=== PATIENT | male | born 1980 | race Caucasian/White ===

== ENCOUNTER 2019-07-24 13:39 | Outpatient (REF) | payer MEDICAID, SELFPAY ==
[2019-07-25 17:14] LABS: COVID-19 RT-PCR Result NEGATIVE (Negative)
== END 2019-07-24 13:59 ==
LOC: NCHCN 13:39
PROVIDERS: PCP Specialist/Technologist Athletic Trainer; Visit Provider Nurse Practitioner Family
DX: J06.9 Acute upper respiratory infection, unspecified (principal)
CPT/HCPCS: U0003

== ENCOUNTER 2019-08-12 16:10 | Outpatient (REF) | payer MEDICAID, SELFPAY ==
[2019-08-12 17:07] LABS: Abs Immature Grans 0.03 k/cumm (0.0-0.09); Absolute Basophil Count 0.03 k/cumm (0.0-0.2); Absolute Lymphocyte Count 1.39 k/cumm (1.2-3.4); Absolute Monocyte Count 0.62 k/cumm (0.11-0.7); Absolute Neutrophil Count 5.86 k/cumm (1.2-6.7); Basophils % 0.4; Eosinophils % 4.8; HCT 47.6 % (40.0-50.0); HGB 16.4 g/dL (13.5-17.5); Immature Grans % 0.4 %; Lymphocytes % 16.7; Mean Corp. HGB Concentration 34.5 g/dL (32.0-36.0); Mean Corpuscular Hemoglobin 29.9 pg (27.0-33.0); Mean Corpuscular Volume 86.9 fL (80-95); Monocytes % 7.4; Neutrophils % 70.3; Platelet Count 219 x1000/uL (130-400); RBC 5.48 m/cumm (4.50-6.00); RBC Distribution Width 14.8 % (11.8-14.1); White Blood Cell Count 8.33 k/cumm (4.4-10.8)
[2019-08-12 17:22] LABS: ALT 47 U/L (16-63); AST 37 U/L (15-37); Albumin 3.6 g/dL (3.4-5.0); Alkaline Phosphatase 80 U/L (46-116); Anion Gap 11.1 mmol/L (3-11); BUN 19 mg/dL (7-18); Bilirubin, Total 0.4 mg/dL (0.2-1.0); CO2 28.9 mmol/L (21.0-32.0); CREATININE 0.98 mg/dL (0.70-1.30); Calcium 8.5 mg/dL (8.5-10.1); Calculated LDL 108 mg/dL (<100); Chloride 103 mmol/L (98-107); Cholesterol 189 mg/dL (<200); Glucose 102 mg/dL (74-106); HDL Cholesterol 44 mg/dL (40-60); Potassium 3.3 mmol/L (3.5-5.1); Sodium 143 mmol/L (136-145); Total Protein 7.3 g/dL (6.4-8.2); Triglyceride 189 mg/dL (<150)
== END 2019-08-12 16:30 ==
LOC: NCHCN 16:10
PROVIDERS: PCP Specialist/Technologist Athletic Trainer; Visit Provider Physician Assistant
DX: I10 Essential (primary) hypertension (principal)
CPT/HCPCS: 80053; 80061; 85025

== ENCOUNTER 2019-09-12 10:35 | Emergency (ER) | payer MEDICAID, SELFPAY ==
[2019-09-12 10:51] VITALS: BP 124/96; PULSE 98; RESP 24; TEMP 36.5; O2SAT 97
[2019-09-12 11:13] LABS: Bilirubin Negative (Negative); Blood Negative (Negative); Clarity Clear (Clear); Glucose Negative (Negative); Ketones Negative (Negative); Leukocyte Esterase Negative (Negative); Nitrite Negative (Negative); Urobilinogen 0.2 EU/dL (Up TO 0.2); pH 5.5 (5-8)
--- NOTE | 2019-09-12 11:15 | RT.EKG_ITS ---
APPROVED REPORT Exam: Resting ECG Patient Location: E HR:91 bpm ECG Measurements Heart Rate 91 AXIS WV 147 P 46 QRSd 83 QRS 20 QT 344 T 9 QTc 425 <Conclusion> Sinus rhythm...normal P axis, V-rate 60- 99 ST elev, probable normal early repol pattern...ST elevation, age<55. No old EKG to compare. I have reviewed and interpreted ECG and agree with software generated interpretation.
[2019-09-12 11:19] LABS: Abs Immature Grans 0.03 k/cumm (0.0-0.09); Absolute Basophil Count 0.05 k/cumm (0.0-0.2); Absolute Eosinophil Count 0.37 k/cumm (0.0-0.7); Absolute Lymphocyte Count 1.99 k/cumm (1.2-3.4); Absolute Monocyte Count 0.66 k/cumm (0.11-0.7); Basophils % 0.6; Eosinophils % 4.7; HCT 46.8 % (40.0-50.0); Immature Grans % 0.4 %; Lymphocytes % 25.2; Mean Corp. HGB Concentration 34.2 g/dL (32.0-36.0); Mean Corpuscular Hemoglobin 29.8 pg (27.0-33.0); Mean Corpuscular Volume 87.2 fL (80-95); Mean Platelet Volume 10.8 fL (8.0-11.0); Monocytes % 8.4; Neutrophils % 60.7; Platelet Count 212 x1000/uL (130-400); RBC 5.37 m/cumm (4.50-6.00); RBC Distribution Width 14.1 % (11.8-14.1)
--- NOTE | 2019-09-12 11:20 | W.ED.GENAD ---
Discharge Plan Disposition Patient Disposition: HOME Condition: Stable Discharge Details Chief Complaint: Abd Prob Clinical Impression: Flank pain Primary Care Provider: Clinton Cruz ED Provider: Robert Diane Home Meds and New Rx's Prescriptions: New naproxen [Naprosyn] 500 mg tablet 500 mg PO BID PRNQty: 20 RF: 0 Continued High Blood Pressure Med RF: 0 Stomach Medicine RF: 0 Discontinued ibuprofen 800 MG tablet 800 mg PO PRN PRNRF: 0 Discharge Instructions Instructions: Flank Pain (ED) Additional Instructions: At this time your work-up in the ER including blood work, urinalysis, troponin, EKG, CT of your abdomen and pelvis do not reveal any obvious emergent process. You responded nicely to the medication Toradol. I have provided you a prescription of Naprosyn, take as directed. Please watch for new or worsening symptoms and return to the ER for any concerns. Otherwise I would like you to reach out to your primary care provider in the next 24 hours for prompt outpatient reevaluation Medical Decision Making 39-year-old gentleman with history of hypertension, GERD, asthma, morbid obesity, presents with 2-week history of constant left flank discomfort worse with movement or engagement of his core. Clinically he does have reproducible discomfort and this very well be musculoskeletal however I do believe obtaining routine laboratory values including lipase and urinalysis is certainly reasonable. Given it is upper left flank, his recent incarceration, his morbid obesity, I will obtain an EKG, single troponin and d-dimer although low suspicion for PE or ACS. Laboratory values are unremarkable. EKG was obtained and reviewed with Dr. Guevara, sinus rhythm, ventricular 91, probable normal early repolarization pattern, no STEMI. Normal d-dimer, no indication for chest CTA. Upon reevaluation patient reports no improvement of his pain. Given his ongoing pain for 2 weeks we discussed our options and he is open to a abdomen and pelvis pelvis CT. In the meantime he will receive 30 IV Toradol. Upon reevaluation patient reports that his pain is now a 2 out of [address] abdomen and pelvis with contrast read by radiology as negative. Upon discussing his work-up and disposition he reports now that he was seen by his primary care provider for the same pain roughly 1 week ago, given a muscle relaxer for likely pulled muscle, he is now out of that medication. He is requesting a refill or something stronger. This heightens my suspicion of this is truly musculoskeletal in nature. He appears well and in no acute distress. I see no indication for narcotic medication or muscle relaxers. Will provide anti-inflammatory prescription, recommend prompt outpatient reevaluation, and encourage returning to the ER for new or worsening symptoms. Patient is comfortable this plan and has no additional questions or concerns Medical Records Medical records reviewed: Yes I reviewed the patient's medical records. Lab Data Lab results reviewed: Yes I reviewed the patient's lab results. Lab results narrative: Laboratory Tests Range/Units 09/12/19 09/12/19 09/12/19 11:07 11:13 11:13 WBC (4.4-10.8) k/cumm 7.90 RBC (4.50-6.00) m/cumm 5.37 Hgb (13.5-17.5) g/dL 16.0 Hct (40.0-50.0) % 46.8 MCV (80-95) fL 87.2 MCH (27.0-33.0) pg 29.8 MCHC (32.0-36.0) g/dL 34.2 RDW (11.8-14.1) % 14.1 Plt Count (130-400) x1000/uL 212 MPV (8.0-11.0) fL 10.8 Immature Gran % % 0.4 Neutrophils % 60.7 Lymphocytes % 25.2 Monocytes % 8.4 Eosinophils % 4.7 Basophils % 0.6 Absolute Neutrophils (1.2-6.7) k/cumm 4.80 Absolute Lymphocytes (1.2-3.4) k/cumm 1.99 Absolute Monocytes (0.11-0.7) k/cumm 0.66 Absolute Eosinophils (0.0-0.7) k/cumm 0.37 Absolute Basophils (0.0-0.2) k/cumm 0.05 D-Dimer (<500) ng/mlFEU Sodium (136-145) mmol/L 138 Potassium (3.5-5.1) mmol/L 4.3 Chloride (98-107) mmol/L 103 Carbon Dioxide (21.0-32.0) mmol/L 25.5 Anion Gap (3-11) mmol/L 9.5 BUN (7-18) mg/dL 18 Creatinine (0.70-1.30) mg/dL 0.96 Estimated GFR/1.73 m2 (mL/min/1.73m2) >= 60.00 Glucose (74-106) mg/dL 95 Calcium (8.5-10.1) mg/dL 9.0 Total Bilirubin (0.2-1.0) mg/dL 0.3 AST (15-37) U/L 20 ALT (16-63) U/L 30 Alkaline Phosphatase (46-116) U/L 85 Troponin I (<0.06) ng/mL Total Protein (6.4-8.2) g/dL 7.7 Albumin (3.4-5.0) g/dL 3.5 Lipase (73-393) U/L 149 Urine Color (Yellow) Yellow Urine Clarity (Clear) Clear Urine pH (5-8) 5.5 Ur Specific [place] (1.005-1.025) 1.020 Urine Protein (Negative) mg/dL Negative Urine Ketones (Negative) mg/dL Negative Urine Blood (Negative) Negative Urine Nitrite (Negative) Negative Urine Bilirubin (Negative) Negative Urine Urobilinogen (Up TO 0.2) EU/dL 0.2 Ur Leukocyte Esterase (Negative) Negative Urine Glucose (Negative) mg/dL Negative Range/Units 09/12/19 09/12/19 11:13 11:21 WBC (4.4-10.8) k/cumm RBC (4.50-6.00) m/cumm Hgb (13.5-17.5) g/dL Hct (40.0-50.0) % MCV (80-95) fL MCH (27.0-33.0) pg MCHC (32.0-36.0) g/dL RDW (11.8-14.1) % Plt Count (130-400) x1000/uL MPV (8.0-11.0) fL Immature Gran % % Neutrophils % Lymphocytes % Monocytes % Eosinophils % Basophils % Absolute Neutrophils (1.2-6.7) k/cumm Absolute Lymphocytes (1.2-3.4) k/cumm Absolute Monocytes (0.11-0.7) k/cumm Absolute Eosinophils (0.0-0.7) k/cumm Absolute Basophils (0.0-0.2) k/cumm D-Dimer (<500) ng/mlFEU 386 Sodium (136-145) mmol/L Potassium (3.5-5.1) mmol/L Chloride (98-107) mmol/L Carbon Dioxide (21.0-32.0) mmol/L Anion Gap (3-11) mmol/L BUN (7-18) mg/dL Creatinine (0.70-1.30) mg/dL Estimated GFR/1.73 m2 (mL/min/1.73m2) Glucose (74-106) mg/dL Calcium (8.5-10.1) mg/dL Total Bilirubin (0.2-1.0) mg/dL AST (15-37) U/L ALT (16-63) U/L Alkaline Phosphatase (46-116) U/L Troponin I (<0.06) ng/mL < 0.05 Total Protein (6.4-8.2) g/dL Albumin (3.4-5.0) g/dL Lipase (73-393) U/L Urine Color (Yellow) Urine Clarity (Clear) Urine pH (5-8) Ur Specific [place] (1.005-1.025) Urine Protein (Negative) mg/dL Urine Ketones (Negative) mg/dL Urine Blood (Negative) Urine Nitrite (Negative) Urine Bilirubin (Negative) Urine Urobilinogen (Up TO 0.2) EU/dL Ur Leukocyte Esterase (Negative) Urine Glucose (Negative) mg/dL ECG Data Attestation: I personally reviewed and interpreted this ECG (s) as follows: Interpretation: As above, please see official interpretation by Dr. Ismael PEMBERTON General Mode of arrival: ambulatory. Date/Time Provider Initiated Documentation: 09/12/19 10:58. Limitations to Documentation: no limitations. Information obtained by: patient. HPI Narrative: This is a 39-year-old gentleman with history of asthma, GERD, hypertension, morbid obesity, presenting with left-sided chest wall-flank pain that has been constant for the past 2 weeks. He reports that movement, engaging his core, coughing, taking a deep breath increases his discomfort. He denies recent illness or trauma. He denies fever, neck pain, anterior chest pain, shortness of breath, abdominal pain, nausea, vomiting, diarrhea, constipation, dysuria. He denies rash. He does smoke cigarettes but denies any alcohol or drug use. Patient denies history of kidney stones, abdominal surgeries, chest pain. Denies change of appetite. Related Data Home Medications Medication Instructions Recorded Confirmed High Blood Pressure Med 02/11/13 10/25/14 Stomach Medicine 10/25/14 10/25/14 naproxen [Naprosyn] 500 mg PO BID PRN #20 tab 09/12/19 Previous Rx's Medication Instructions Recorded naproxen [Naprosyn] 500 mg PO BID PRN #20 tab 09/12/19 Allergies Allergy/AdvReac Type Severity Reaction Status Date / Time No Known Allergies Allergy Unverified 09/12/19 11:03 General Stated Complaint: Abd Prob KARL: 3 Review of Systems Constitutional Constitutional: Denies fatigue, Denies fever(s), Denies headache(s), Denies increased appetite, Denies poor appetite and Denies weakness Eyes Eyes: Denies change in vision ENT Ears, Nose, Mouth, and Throat: Denies headache(s) Cardiovascular Cardiovascular: Reports chest pain (Left chest wall) and Denies dyspnea Respiratory Respiratory: Reports cough (Chronic smoking cough) and Denies dyspnea Gastrointestinal Gastrointestinal: Reports abdominal pain (Left flank pain), Denies nausea and Denies vomiting Genitourinary Genitourinary: Denies hematuria, Denies dysuria and Denies testicular pain Musculoskeletal Musculoskeletal: Reports back pain (Chronic, 3 bulging disc), Denies numbness and Denies tingling Integumentary/Breasts Skin/Breast: Denies rash Neurologic Neurologic: Denies headache(s), Denies numbness, Denies tingling and Denies weakness Endocrine Endocrine: Denies fatigue [facility] Medical History Asthma (Chronic) GERD (gastroesophageal reflux disease) (Chronic) Hypertension (Chronic) Social History Smoking/Tobacco Use Status: Current every day Tobacco Type: cigarettes Tobacco: How many years used: 25 Alcohol Intake: former Drug use: Socially Substance use type: marijuana Do you feel safe at home: Yes Additional Social history: lives in [facility] house with four other residents Exam Const General: cooperative, healthy appearing, comfortable and no acute distress Orientation: alert, awake and oriented x3 HENMT Head: normal to inspection, normocephalic and atraumatic Face and sinus: normal facial exam Mouth: moist mucous membranes Throat: posterior oropharynx normal Eyes Conjunctivae: conjunctivae normal Sclera: sclerae normal Neck Neck: normal visual inspection, full ROM, trachea midline, supple and nontender Chest Chest: normal inspection of the chest and normal palpation of entire chest wall Resp Effort & Inspection: normal respiratory effort and able to speak in complete sentences Auscultation: clear to auscultation bilaterally Cardio Rate: regular rate Rhythm: regular rhythm GI Inspection: normal to inspection and obesity Palpation: soft, not firm, no guarding, not rigid and tender (Left upper flank) Auscultation: normal bowel sounds Back/Spine/Pelvis Back: no CVA tenderness and No back tenderness Skin General skin exam: no rashes or lesions noted Neuro General: patient alert, patient awake, patient oriented x3, moves all extremities and no focal motor deficits Cognition: normal cognition Speech: speech normal Gait: normal gait Motor: muscle tone normal throughout and strength 5/5 throughout Sensory Exam: no sensory deficits noted Extrem General: normal to inspection, full ROM, capillary refill normal, no pedal edema and no calf tenderness Psych Appearance: grossly normal Mental Status: mental status grossly normal Course Vital Signs Vital signs: Vital Signs Temperature 36.5 C 09/12/19 10:51 Pulse 98 H 09/12/19 10:51 Respiratory Rate 24 09/12/19 10:51 Blood Pressure 124/96 H 09/12/19 10:51 Pulse Oximetry 97 09/12/19 10:51 Temperature 36.5 C 09/12/19 10:51 Temperature Source Temporal Artery Scan 09/12/19 10:51 Pulse 98 H 09/12/19 10:51 Respiratory Rate 24 09/12/19 10:51 Respiratory Effort 09/12/19 10:55 Blood Pressure 124/96 H 09/12/19 10:51 Pulse Oximetry 97 09/12/19 10:51 Oxygen Delivery Method Room Air 09/12/19 10:51 Oxygen Flow Rate 0 09/12/19 10:51 Pain Level 9 09/12/19 10:51
[2019-09-12 11:40] LABS: ALT 30 U/L (16-63); AST 20 U/L (15-37); Albumin 3.5 g/dL (3.4-5.0); Alkaline Phosphatase 85 U/L (46-116); Anion Gap 9.5 mmol/L (3-11); BUN 18 mg/dL (7-18); Bilirubin, Total 0.3 mg/dL (0.2-1.0); CO2 25.5 mmol/L (21.0-32.0); CREATININE 0.96 mg/dL (0.70-1.30); Chloride 103 mmol/L (98-107); Glucose 95 mg/dL (74-106); Lipase 149 U/L (73-393); Potassium 4.3 mmol/L (3.5-5.1); Sodium 138 mmol/L (136-145); Total Protein 7.7 g/dL (6.4-8.2)
[2019-09-12 11:51] VITALS: BP 131/80; PULSE 95; RESP 20; O2SAT 97
--- NOTE | 2019-09-12 12:00 | DI.CT_ITS ---
EXAM: CT ABDOMEN PELVIS W CLINICAL HISTORY: Left flank pain, sudden onset, 10 days. TECHNIQUE: Imaging Protocol: Axial computed tomography images with coronal and sagittal reformatted images were created and reviewed CONTRAST MATERIAL: 100 cc Omnipaque 350 IV. No oral contrast. COMPARISON: No exams were available for comparison FINDINGS: The lung bases are clear. The liver shows fatty infiltration. The spleen is normal in size. The ga llbladder, pancreas and adrenals are unremarkable. No renal calculi or hydronephrosis is seen. Blad luis and prostate are unremarkable. The appendix appears normal. There is a normal quantity of stool . There is no gastric, small bowel or colonic dilatation or wall thickening. There is no free air o r free fluid. The the the aorta is normal in diameter. There are mild degenerative changes in the l ower thoracic and lumbar spine. There is no gross evidence of a disc herniation. There is a fatty c ontaining left inguinal hernia. Impression: Unremarkable CT scan of the abdomen and pelvis. RADIATION DOSE DELIVERED: Total DLP DATA REPOSITORY: All CT scans at this facility are submitted to the National Radiology Data Registry (NRDR) Dose Index Registry (DIR) with the [employer] (ACR). RADIATION OPTIMIZATION: All CT scans at this facility use at least one of these dose optimization te chniques: automated exposure control; mA and/or kV adjustment per patient size (includes targeted exa ms where dose is matched to clinical indication); or iterative reconstruction.
--- NOTE | 2019-09-12 12:03 | NUR.NOTE ---
placed on cardiac nurse specialist
[2019-09-12 12:04] LABS: Troponin I < 0.05 ng/mL (<0.06)
[2019-09-12 12:07] LABS: D-Dimer 386 ng/mlFEU (<500)
[2019-09-12] MEDS: Ketorolac 30 MG/ML VIAL IVP (12:26)
[2019-09-12 13:21] VITALS: BP 120/61; PULSE 89; RESP 20; O2SAT 95
--- NOTE | 2019-09-12 13:22 | NUR.NOTE ---
resting quietly, respirations even and unlabored. awakened for reassess, denies pain at this time. asked for cell phone
[2019-09-12] MEDS: Omnipaque 350 MG/ML 100 ML BTL IJ (14:19)
== END 2019-09-12 13:40 | disposition home or self-care (01) ==
PROVIDERS: Emergency Provider Physician Assistant; PCP Physician Assistant
DX: R10.12 Left upper quadrant pain (principal); I10 Essential (primary) hypertension
CPT/HCPCS: 36415; 80053; 83690; 93005; 96374; 99285; 74177; 81003; 84484; 85025; 85379; 93010; J1885; J3490

== ENCOUNTER 2019-10-25 16:19 | Outpatient (REF) | payer MEDICAID, SELFPAY ==
[2019-10-25 22:30] LABS: Anion Gap 9.1 mmol/L (3-11); BUN 17 mg/dL (7-18); CO2 26.9 mmol/L (21.0-32.0); CREATININE 0.96 mg/dL (0.70-1.30); Chloride 107 mmol/L (98-107); Glucose 102 mg/dL (74-106); Potassium 4.5 mmol/L (3.5-5.1); Sodium 143 mmol/L (136-145)
== END 2019-10-25 16:39 ==
LOC: NCHCN 16:19
PROVIDERS: PCP Physician Assistant; Visit Provider Physician Assistant
DX: I10 Essential (primary) hypertension (principal)
CPT/HCPCS: 80048

== ENCOUNTER 2020-04-23 16:27 | Emergency (ER) | payer MEDICAID, SELFPAY ==
[2020-04-23 16:33] VITALS: BP 167/96; PULSE 96; TEMP 36.6; O2SAT 100
[2020-04-23] MEDS: Ketorolac 60 MG/2 ML VIAL IM (17:12)
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
== END 2020-04-23 17:55 | disposition home or self-care (01) ==
PROVIDERS: Emergency Provider Physician Assistant; PCP Physician Assistant
DX: M25.512 Pain in left shoulder (principal); G89.29 Other chronic pain; I10 Essential (primary) hypertension
CPT/HCPCS: 96372; 99284; J1885

== ENCOUNTER 2020-08-21 12:58 | Outpatient (REF) | payer MEDICAID, SELFPAY ==
[2020-08-20 21:20] LABS: Abs Immature Grans 0.02 10^3/uL (0.0-0.06); Absolute Basophil Count 0.06 10^3/uL (0.0-0.2); Absolute Eosinophil Count 0.37 10^3/uL (0.0-0.7); Absolute Lymphocyte Count 1.98 10^3/uL (1.2-3.4); Absolute Monocyte Count 0.77 10^3/uL (0.1-0.8); Absolute Neutrophil Count 5.54 10^3/uL (1.2-6.7); Basophils % 0.7; Eosinophils % 4.2; HCT 54.1 % (40.0-50.0); HGB 18.6 g/dL (13.5-17.5); Immature Grans % 0.2; Lymphocytes % 22.7; MCH 30.6 pg (27.0-33.0); MCHC 34.4 % (32.0-36.0); MPV 12.5 fL (8.0-11.0); Monocytes % 8.8; Neutrophils % 63.4; Nucleated RBC 0 %; Platelet Count 224 10^3/uL (130-400); RBC 6.08 10^6/uL (4.36-5.78); RDW 12.9 % (11.8-14.1); RDW-SD 41.8 fL; WBC 8.74 10^3/uL (4.4-10.8)
[2020-08-20 21:52] LABS: Diff Comment Diff Reviewed; RBC Morphology Normal
[2020-08-20 21:56] LABS: ALT 31 U/L (16-63); AST 23 U/L (15-37); Albumin 4.1 g/dL (3.4-5.0); Alkaline Phosphatase 75 U/L (46-116); Anion Gap 12.5 mmol/L (3-11); BUN 19 mg/dL (7-18); Bilirubin, Total 0.4 mg/dL (0.2-1.0); CO2 22.5 mmol/L (21.0-32.0); Calcium 9.3 mg/dL (8.5-10.1); Chloride 103 mmol/L (98-107); Glucose 120 mg/dL (74-106); Potassium 4.7 mmol/L (3.5-5.1); Sodium 138 mmol/L (136-145)
[2020-08-22 13:32] LABS: COVID-19 RT-PCR UVMMC Result Negative (Negative)
== END 2020-08-21 12:59 | disposition home or self-care (01) ==
LOC: LBN 12:58
PROVIDERS: PCP Physician Assistant; Visit Provider Physician Assistant Medical
DX: R11.2 Nausea with vomiting, unspecified (principal); Z20.822 Contact with and (suspected) exposure to COVID-19
CPT/HCPCS: 80053; U0003; 85025

== ENCOUNTER 2020-09-14 18:49 | Outpatient (REF) | payer MEDICAID, SELFPAY ==
[2020-09-15 14:15] LABS: COVID-19 RT-PCR UVMMC Result Negative (Negative)
== END 2020-09-14 18:50 | disposition home or self-care (01) ==
LOC: LBN 18:49
PROVIDERS: PCP Physician Assistant; Visit Provider Nurse Practitioner Family
DX: Z20.822 Contact with and (suspected) exposure to COVID-19 (principal)
CPT/HCPCS: U0003

== ENCOUNTER 2020-09-28 15:47 | Outpatient (REF) | payer MEDICAID, SELFPAY ==
[2020-09-28 20:54] LABS: Abs Immature Grans 0.02 10^3/uL (0.0-0.06); Absolute Basophil Count 0.05 10^3/uL (0.0-0.2); Absolute Eosinophil Count 0.28 10^3/uL (0.0-0.7); Absolute Lymphocyte Count 1.75 10^3/uL (1.2-3.4); Absolute Monocyte Count 0.74 10^3/uL (0.1-0.8); Absolute Neutrophil Count 4.22 10^3/uL (1.2-6.7); Basophils % 0.7; HCT 50.7 % (40.0-50.0); Immature Grans % 0.3; Lymphocytes % 24.8; MCH 30.1 pg (27.0-33.0); MCHC 33.5 % (32.0-36.0); MCV 89.7 fL (80-95); MPV 12.1 fL (8.0-11.0); Monocytes % 10.5; Neutrophils % 59.7; Nucleated RBC 0 %; Platelet Count 195 10^3/uL (130-400); RBC 5.65 10^6/uL (4.36-5.78); RDW 12.9 % (11.8-14.1); RDW-SD 42.5 fL; WBC 7.06 10^3/uL (4.4-10.8)
[2020-09-28 21:02] LABS: Anion Gap 10.6 mmol/L (3-11); BUN 14 mg/dL (7-18); CO2 26.4 mmol/L (21.0-32.0); Calcium 9.5 mg/dL (8.5-10.1); Chloride 104 mmol/L (98-107); Glucose 94 mg/dL (74-106); Potassium 4.5 mmol/L (3.5-5.1); Sodium 141 mmol/L (136-145)
[2020-09-28 21:12] LABS: Uric Acid 9.1 mg/dL (3.5-7.2)
== END 2020-09-28 15:48 | disposition home or self-care (01) ==
LOC: LBN 15:47
PROVIDERS: PCP Physician Assistant; Visit Provider Nurse Practitioner Family
DX: M79.672 Pain in left foot (principal)
CPT/HCPCS: 80048; 84550; 85025

== ENCOUNTER 2020-09-29 18:13 | Emergency (ER) | payer MEDICAID, SELFPAY ==
--- NOTE | 2020-09-29 18:15 | DI.RAD_ITS ---
Exam(s) XR ANKLE LT COMPLETE EXAM: XR ANKLE LT COMPLETE CLINICAL HISTORY: Pain, Recently diagnosed with Gout. TECHNIQUE: 2D digital imaging was performed. COMPARISON: No exams were available for comparison FINDINGS: Mild soft tissue swelling. No evidence of fracture nor widening of the mortise. Talar dome appears unremarkable. Small inferior calcaneal spur noted. No osseous tarsal coalition IMPRESSION: No fracture evident. DATA REPOSITORY: RADIATION DOSE DELIVERED:
[2020-09-29 18:23] VITALS: BP 158/100; PULSE 102; RESP 20; TEMP 36.6; O2SAT 95
--- NOTE | 2020-09-29 18:28 | ED.GENADUL_ITS ---
Discharge Plan Disposition Patient Disposition: HOME Condition: Stable Discharge Details Clinical Impression: Gout of left ankle Primary Care Provider: Clinton Cruz ED Provider: Carlie Jones Home Meds and New Rx's Prescriptions: No Action gabapentin 600 mg tablet 600 mg PO TID 30 Days Qty: 90 RF: 11 prednisone 10 mg tablet 10 mg PO DAILY RF: 0 indomethacin 50 mg capsule 50 mg PO DAILY RF: 0 zolpidem 5 mg tablet 5 mg PO HS RF: 0 diclofenac sodium 1 % gel topical BID RF: 0 lisinopril 20 mg Tablet 20 mg PO DAILY RF: 0 amlodipine 10 mg Tablet 10 mg PO DAILY RF: 0 pantoprazole 40 mg Tablet,Delayed Release (Dr/Ec) 40 mg PO DAILY RF: 0 albuterol sulfate [ProAir HFA] 90 mcg/actuation Hfa Aerosol Inhaler 2 puff INHALATION Q6H PRNRF: 0 spironolactone 50 mg Tablet 50 mg PO DAILY RF: 0 Discharge Instructions Instructions: Low Purine Diet (ED), Gout (ED) Additional Instructions: Continue taking the previously prescribed medications including the indomethacin and prednisone. Rest, ice, elevation. Stay off of foot as much as possible over the next 2 to 3 days. Use crutches and walking boot as instructed for comfort. Follow up with primary care provider in 3-5 days. Return to ED sooner if any worsening or concerns. Increase oral fluids. Referrals: Clinton Cruz [Primary Care Provider] - Medical Decision Making 40-year-old male presents the ER chief complaint of left ankle pain. Patient was seen in urgent care yesterday and was diagnosed with gout. Patient states he has had gouty arthritis before. He was prescribed indomethacin, prednisone PO, and diclofenac topically. 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 He states the pain worsened today. He denies any recent injuries. He last took medications at 2 PM. He denies any alcohol. At this time ankle x-ray ordered, 60 mg Toradol IM and ice pack. Imaging protocol: XR Left ankle. Views: 3 or more views. COMPARISON: No relevant prior studies available. FINDINGS: Bones/joints: No fracture. No malalignment. Small enthesophyte at the Achilles insertion. No evidence of joint erosion. Soft tissues: Normal. IMPRESSION: No acute osseous abnormality Thank you for allowing us to participate in the care of your patient. Dictated and Authenticated by: Asher Covarrubias MD 1914: Patient re-evaluation, Reports mild improvement in pain. Has taken Prednisone today but not Indomethacin. Will give crutches and trial patient with a walking boot. I did encourage him to continue the regimen that was already prescribed as this is an appropriate medication regimen to discuss strict return instructions and red flags, verbalized understanding. This text was generated using Cuppleation system, please disregard any oddities of phrase or misspellings. HPI General Mode of arrival: wheelchair . Date/Time Provider Initiated Documentation: 09/29/20 18:19 . Limitations to Documentation: no limitations . Information obtained by: patient and RN notes reviewed . HPI Narrative: 40-year-old male presents the ER chief complaint of left ankle pain. Patient was seen in urgent care yesterday and was diagnosed with gout. Patient states he has had gouty arthritis before. He was prescribed indomethacin, prednisone PO, and diclofenac topically. 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 He states the pain worsened today. He denies any recent injuries. He last took medications at 2 PM. He denies any alcohol. Related Data Home Medications Medication Instructions Recorded Confirmed albuterol sulfate [ProAir HFA] 2 puff INHALATION Q6H PRN 04/23/20 09/29/20 amlodipine 10 mg PO DAILY 04/23/20 09/29/20 lisinopril 20 mg PO DAILY 04/23/20 09/29/20 pantoprazole 40 mg PO DAILY 04/23/20 09/29/20 spironolactone 50 mg PO DAILY 04/23/20 09/29/20 gabapentin 600 mg tablet 600 mg PO TID 30 Days #90 tab 07/02/20 09/29/20 diclofenac sodium TOPICAL BID 09/29/20 indomethacin 50 mg PO DAILY 09/29/20 09/29/20 prednisone 10 mg PO DAILY 09/29/20 09/29/20 zolpidem 5 mg PO HS 09/29/20 09/29/20 Previous Rx's Medication Instructions Recorded gabapentin 600 mg tablet 600 mg PO TID 30 Days #90 tab 07/02/20 Allergies Allergy/AdvReac Type Severity Reaction Status Date / Time No Known Allergies Allergy Unverified 09/29/20 18:32 General Stated Complaint: Orthopedic KARL: 4 Review of Systems All systems reviewed & are unremarkable except as noted in HPI and below Musculoskeletal Musculoskeletal: Reports as per HPI, Reports arthralgias (Left ankle) and Reports joint swelling PFSH Medical History Asthma Back pain Depression GERD (gastroesophageal reflux disease) Hypertension Murmur Sleep apnea Tobacco use Social History Smoking/Tobacco Use Status: Current every day Tobacco Type: cigarettes Tobacco: How many years used: 25 Smoking risk assessment performed?: Yes Alcohol Intake: current Alcohol Intake frequency: holidays/special occasions only Drug use: Daily Substance use type: marijuana Housing: other Details: living in [facility] current occupation: N/A What type of physical activity do you participate in: independent ambulation Do you feel safe at home: Yes Do you feel safe in your relationship?: Yes Additional Social history: lives in senior living house with four other residents Exam Narrative Exam Narrative: Constitutional: Alert and oriented x3. Appears stated age. Normal body habitus. Head: Normocephalic, no trauma. Eyes: Pupils PERRLA, Red reflex noted, EOM's intact. Eyelids symmetrical without lesions, discharge, or swelling. ENT: Bilateral TM's WNL, External ear normal to inspection, no mastoid TTP, swelling, or erythema, Nasal turbinates WNL, no nasal discharge. Normal dentition, Posterior pharynx WNL, no exudate. Chest: RRR, Normal S1, S2, distal pulses intact. Resp: Lungs clear to auscultation bilaterally, no wheezes, rales, or rhonchi. Musculoskeletal: Unable to assess gait, tenderness to left ankle no significant erythema or swelling there is some mild erythema noted. Tenderness at the base of the great toe and lateral ankle no deformity. Skin: No suspicious rashes or lesions. Capillary refill less than 2 sec. Neurologic: Cranial nerves II-XII intact. Alert and oriented x 3. DTR's intact. Hematologic/Lymphatic: No ecchymosis, no lymphadenopathy. Course Vital Signs Vital signs: Vital Signs Temperature 36.6 C 09/29/20 18:23 Pulse 102 H 09/29/20 18:23 Respiratory Rate 20 09/29/20 18:23 Blood Pressure 158/100 H 09/29/20 18:23 Pulse Oximetry 95 09/29/20 18:23 Temperature 36.6 C 09/29/20 18:23 Temperature Source Temporal Artery Scan 09/29/20 18:23 Pulse 102 H 09/29/20 18:23 Respiratory Rate 20 09/29/20 18:23 Respiratory Effort 09/29/20 18:26 Blood Pressure 158/100 H 09/29/20 18:23 Blood Pressure Position Sitting 09/29/20 18:23 Pulse Oximetry 95 09/29/20 18:23 Oxygen Delivery Method Room Air 09/29/20 18:23 Oxygen Flow Rate 0 09/29/20 18:23 Pain Level 10 09/29/20 18:23
[2020-09-29] MEDS: Ketorolac 60 MG/2 ML VIAL IM (18:40)
--- NOTE | 2020-09-29 19:15 | DI.VRAD_ITS ---
PROCEDURE INFORMATION: Exam: XR Left Ankle Exam date and time: 09/29/2020 6:27 PM Age: 40 years old Clinical indication: Ankle; Left; Patient HX: Pain diagnosed with gout TECHNIQUE: Imaging protocol: XR Left ankle. Views: 3 or more views. COMPARISON: No relevant prior studies available. FINDINGS: Bones/joints: No fracture. No malalignment. Small enthesophyte at the Achilles insertion. No evidence of joint erosion. Soft tissues: Normal. IMPRESSION: No acute osseous abnormality Dictated and Authenticated by: Asher Covarrubias MD. Ordering:ISSA Sexton MD
[2020-09-29] MEDS: Indomethacin 25 MG CAP 50 MG PO (19:36)
== END 2020-09-29 19:45 | disposition home or self-care (01) ==
PROVIDERS: Emergency Provider Registered Nurse Emergency; PCP Physician Assistant
DX: M25.572 Pain in left ankle and joints of left foot (principal); M10.9 Gout, unspecified
CPT/HCPCS: 29515; 96372; 99284; 73610; 99283; J1885

== ENCOUNTER 2020-12-03 12:33 | Emergency (ER) | payer MEDICAID, SELFPAY ==
[2020-12-03] VITALS (19 sets, daily range): BP systolic 111–148; BP diastolic 63–78; PULSE 69–90; RESP 14–34; TEMP 36.4–36.9; O2SAT 94–98
--- NOTE | 2020-12-03 12:40 | W.ED.GENAD ---
Discharge Plan Disposition Patient Disposition: HOME Condition: Improving Discharge Details Clinical Impression: Nausea and vomiting Primary Care Provider: Clinton Cruz ED Provider: Robert Diane Home Meds and New Rx's Prescriptions: New ondansetron HCl [Zofran] 4 mg tablet 4 mg PO Q8H PRNQty: 10 RF: 0 Continued gabapentin 600 mg tablet 600 mg PO TID 30 Days Qty: 90 RF: 11 lisinopril 20 mg Tablet 20 mg PO DAILY RF: 0 amlodipine 10 mg Tablet 10 mg PO DAILY RF: 0 pantoprazole 40 mg Tablet,Delayed Release (Dr/Ec) 40 mg PO DAILY RF: 0 albuterol sulfate [ProAir HFA] 90 mcg/actuation Hfa Aerosol Inhaler 2 puff INHALATION Q6H PRNRF: 0 spironolactone 50 mg Tablet 50 mg PO DAILY RF: 0 Discharge Instructions Instructions: Acute Nausea and Vomiting (ED) Additional Instructions: Your laboratory values did not reveal any obvious emergent process. Zofran as directed. Clear liquid diet, advance as tolerated. Plenty of fluids to avoid dehydration. Please watch for new or worsening symptoms and return to the ER for any concerns. Lastly, I recommend reaching out your primary care provider tomorrow to discuss your ER visit and need for outpatient reevaluation Medical Decision Making 40-year-old gentleman, past medical history that includes asthma, back pain, depression, GERD, hypertension, current smoker, obesity, uses marijuana products daily, presents to the ER complaining of nausea and vomiting associated with chills that began around 2:00 this morning, has also had 2 episodes of diarrhea. He reports having similar episodes maybe 3 or 4 times a year. Denies recent travel or sick exposure. Denies bad food intake. Clinically he appears well, nontoxic, hemodynamically stable, afebrile, abdomen soft, nontender. Will obtain IV access, give IV fluid, 1 L IV saline and 1 L lactated Ringer's, IV Zofran, topical capsaicin, and obtain screening laboratories. Patient is comfortable this plan. Patient reports mild relief with Zofran. No vomiting while under my care. Will give IV Phenergan as well. Upon reevaluation after the initiation of capsaicin and Phenergan, patient reports that he is feeling much better, asymptomatic. Clinically he appears well, nontoxic. CBC reveals mild nonspecific leukocytosis, hemoconcentration, CMP, electrolytes unremarkable, creatinine 0.9 with a GFR greater than 60, total bili 0.4 LFTs unremarkable. Patient is receiving his second liter of IV fluid, lactated Ringer's. Awaiting urinalysis Patient received his second liter of fluid. He then ambulated steadily to the restroom without assistance, was able to provide a urine sample, then tolerated p.o. mariya brittney and crackers. No vomiting while under my care. Urinalysis unremarkable for infection Patient is asymptomatic. Discussed benign work-up here in the ER. Will provide prescription for Zofran. Standard discharge and return precautions provided. This documentation was generated using [employer] dictation system, please disregard any oddities of phrase or misspellings. Medical Records Medical records reviewed: Yes I reviewed the patient's medical records. Lab Data Lab results reviewed: Yes I reviewed the patient's lab results. Labs: Laboratory Tests Range/Units 12/03/20 12/03/20 12:30 12:30 WBC (4.4-10.8) 10^3/uL 11.69 H RBC (4.36-5.78) 10^6/uL 5.91 H Hgb (13.5-17.5) g/dL 17.6 H Hct (40.0-50.0) % 51.7 H MCV (80-95) fL 87.5 MCH (27.0-33.0) pg 29.8 MCHC (32.0-36.0) % 34.0 RDW (11.8-14.1) % 13.3 Plt Count (130-400) 10^3/uL 183 MPV (8.0-11.0) fL 11.6 H Immature Gran % 0.3 Neutrophils % 88.9 Lymphocytes % 5.0 Monocytes % 4.7 Eosinophils % 0.4 Basophils % 0.7 Nucleated RBC % % 0 Absolute Neutrophils (1.2-6.7) 10^3/uL 10.39 H Absolute Lymphocytes (1.2-3.4) 10^3/uL 0.58 L Absolute Monocytes (0.1-0.8) 10^3/uL 0.55 Absolute Eosinophils (0.0-0.7) 10^3/uL 0.05 Absolute Basophils (0.0-0.2) 10^3/uL 0.08 Sodium (136-145) mmol/L 140 Potassium (3.5-5.1) mmol/L 4.2 Chloride (98-107) mmol/L 104 Carbon Dioxide (21.0-32.0) mmol/L 25.0 Anion Gap (3-11) mmol/L 11.0 BUN (7-18) mg/dL 12 Creatinine (0.70-1.30) mg/dL 0.9 Estimated GFR/1.73 m2 (mL/min/1.73m2) >= 60.00 Glucose (74-106) mg/dL 116 H Calcium (8.5-10.1) mg/dL 9.0 Total Bilirubin (0.2-1.0) mg/dL 0.4 AST (15-37) U/L 22 ALT (16-63) U/L 26 Alkaline Phosphatase (46-116) U/L 71 Total Protein (6.4-8.2) g/dL 8.4 H Albumin (3.4-5.0) g/dL 4.1 Lipase (73-393) U/L 91 HPI General Mode of arrival: EMS. Date/Time Provider Initiated Documentation: 12/03/20 12:38. Limitations to Documentation: no limitations. Information obtained by: patient and EMS. HPI Narrative: This is a 40-year-old gentleman, past medical history of asthma, gout, hypertension, depression, back pain, current smoker, uses marijuana daily, reports nausea, vomiting, chills that woke him from sleep around 2 AM, 2 episodes of diarrhea. Patient denies recent sick contacts or bad food exposure. He denies any fever, chest pain, shortness of breath, abdominal pain, bloody vomitus, black tarry stools or bright red blood in his stools. Denies any urinary symptoms. Patient states no abdominal pain whatsoever. Patient states that he gets similar symptoms a few times a year, typically antiemetics help. He has not taken any medications at home prior to arrival. He has no additional questions or concerns at this time. Denies recent antibiotic use. Related Data Home Medications Medication Instructions Recorded Confirmed albuterol sulfate [ProAir HFA] 2 puff INHALATION Q6H PRN 04/23/20 12/03/20 amlodipine 10 mg PO DAILY 04/23/20 12/03/20 lisinopril 20 mg PO DAILY 04/23/20 12/03/20 pantoprazole 40 mg PO DAILY 04/23/20 12/03/20 spironolactone 50 mg PO DAILY 04/23/20 12/03/20 gabapentin 600 mg tablet 600 mg PO TID 30 Days #90 tab 07/02/20 12/03/20 ondansetron HCl [Zofran] 4 mg PO Q8H PRN #10 tab 12/03/20 Previous Rx's Medication Instructions Recorded gabapentin 600 mg tablet 600 mg PO TID 30 Days #90 tab 07/02/20 ondansetron HCl [Zofran] 4 mg PO Q8H PRN #10 tab 12/03/20 Allergies Allergy/AdvReac Type Severity Reaction Status Date / Time No Known Allergies Allergy Unverified 12/03/20 13:10 General Stated Complaint: Nausea/Vomit/Diar KARL: 3 Review of Systems Constitutional Constitutional: Reports chills, Denies fever(s), Denies headache(s) and Denies weakness ENT Ears, Nose, Mouth, and Throat: Denies headache(s) and Denies neck pain Cardiovascular Cardiovascular: Denies chest pain and Denies dyspnea Respiratory Respiratory: Denies cough and Denies dyspnea Gastrointestinal Gastrointestinal: Denies abdominal pain, Denies melena, Denies hematochezia, Reports diarrhea, Reports nausea, Reports vomiting and Denies hematemesis Genitourinary Genitourinary: Denies dysuria Musculoskeletal Musculoskeletal: Reports back pain (Chronic in nature) and Denies neck pain Integumentary/Breasts Skin/Breast: Denies rash Neurologic Neurologic: Denies headache(s) and Denies weakness PFSH Medical History Asthma Back pain Depression GERD (gastroesophageal reflux disease) Hypertension Murmur Sleep apnea Tobacco use Social History Smoking/Tobacco Use Status: Current every day Tobacco Type: cigarettes Tobacco: How many years used: 25 Smoking risk assessment performed?: Yes Alcohol Intake: current Alcohol Intake frequency: holidays/special occasions only Drug use: Daily Substance use type: marijuana Housing: other Details: [facility] current occupation: N/A What type of physical activity do you participate in: independent ambulation Do you feel safe at home: Yes Do you feel safe in your relationship?: Yes Additional Social history: lives in retirement house with four other residents Exam Const General: cooperative, healthy appearing, comfortable and no acute distress Orientation: alert and awake [facility] Head: normal to inspection, normocephalic and atraumatic Face and sinus: normal facial exam Mouth: moist mucous membranes abnormal (Slightly dry) Eyes General: appearance normal, both eyes and all related structures Conjunctivae: conjunctivae normal Neck Neck: normal visual inspection, full ROM, trachea midline and supple Resp Effort & Inspection: normal respiratory effort and able to speak in complete sentences Auscultation: clear to auscultation bilaterally Cardio Rate: regular rate Rhythm: regular rhythm GI Inspection: normal to inspection Palpation: soft, not firm, no guarding, no pulsatile masses and nontender Auscultation: normal bowel sounds Back/Spine/Pelvis Back: no CVA tenderness and No back tenderness Skin General skin exam: no rashes or lesions noted Neuro General: patient alert, patient awake, moves all extremities and no focal motor deficits Cognition: normal cognition Speech: speech normal Motor: muscle tone normal throughout Sensory Exam: no sensory deficits noted Extrem General: normal to inspection and full ROM Psych Appearance: grossly normal Mental Status: mental status grossly normal Course Vital Signs Vital signs: Vital Signs Temperature 36.4 C L 12/03/20 12:30 Pulse 90 12/03/20 12:30 Respiratory Rate 18 12/03/20 12:30 Blood Pressure 111/63 12/03/20 12:30 Pulse Oximetry 94 12/03/20 12:30 Temperature 36.4 C L 12/03/20 12:30 Temperature Source Temporal Artery Scan 12/03/20 12:30 Pulse 90 12/03/20 12:30 Respiratory Rate 18 12/03/20 12:30 Respiratory Effort Non-Labored 12/03/20 12:36 Blood Pressure 111/63 12/03/20 12:30 Blood Pressure Position Sitting 12/03/20 12:30 Pulse Oximetry 94 12/03/20 12:30 Oxygen Delivery Method Room Air 12/03/20 12:30 Oxygen Flow Rate 0 12/03/20 12:30
[2020-12-03] MEDS: Normal Saline 1,000 ML 1000 ML IV (12:41)
[2020-12-03 12:43] LABS: Abs Immature Grans 0.04 10^3/uL (0.0-0.06); Absolute Basophil Count 0.08 10^3/uL (0.0-0.2); Absolute Eosinophil Count 0.05 10^3/uL (0.0-0.7); Absolute Monocyte Count 0.55 10^3/uL (0.1-0.8); Basophils % 0.7; Eosinophils % 0.4; HCT 51.7 % (40.0-50.0); HGB 17.6 g/dL (13.5-17.5); Immature Grans % 0.3; MCH 29.8 pg (27.0-33.0); MCV 87.5 fL (80-95); MPV 11.6 fL (8.0-11.0); Monocytes % 4.7; Neutrophils % 88.9; Nucleated RBC 0 %; Platelet Count 183 10^3/uL (130-400); RBC 5.91 10^6/uL (4.36-5.78); RDW 13.3 % (11.8-14.1); RDW-SD 43.1 fL; WBC 11.69 10^3/uL (4.4-10.8)
[2020-12-03] MEDS: Ondansetron 4 MG/2 ML VIAL IVP (12:43)
[2020-12-03 12:45] LABS: Absolute Lymphocyte Count 0.58 10^3/uL (1.2-3.4); Absolute Neutrophil Count 10.39 10^3/uL (1.2-6.7)
[2020-12-03 13:02] LABS: ALT 26 U/L (16-63); AST 22 U/L (15-37); Albumin 4.1 g/dL (3.4-5.0); Alkaline Phosphatase 71 U/L (46-116); BUN 12 mg/dL (7-18); Bilirubin, Total 0.4 mg/dL (0.2-1.0); CREATININE 0.9 mg/dL (0.70-1.30); Chloride 104 mmol/L (98-107); Glucose 116 mg/dL (74-106); Lipase 91 U/L (73-393); Potassium 4.2 mmol/L (3.5-5.1); Sodium 140 mmol/L (136-145); Total Protein 8.4 g/dL (6.4-8.2)
[2020-12-03] MEDS: Lactated Ringers 1,000 ML 1000 ML IV (13:30)
[2020-12-03 14:34] LABS: Bilirubin Negative (Negative); Blood Negative (Negative); Clarity Clear (Clear); Glucose Negative (Negative); Ketones Negative (Negative); Leukocyte Esterase Negative (Negative); Nitrite Negative (Negative); Specific Gravity 1.015 (1.005-1.025); Urobilinogen 0.2 EU/dL (Up TO 0.2)
== END 2020-12-03 14:53 | disposition home or self-care (01) ==
PROVIDERS: Emergency Provider Physician Assistant; PCP Physician Assistant
DX: R11.2 Nausea with vomiting, unspecified (principal)
CPT/HCPCS: 36415; 80053; 83690; 96361; 96374; 96375; 99284; 81003; 85025; 99283; J2405

== ENCOUNTER 2021-02-05 21:23 | Outpatient (REF) | payer MEDICAID, SELFPAY ==
[2021-02-07 21:24] LABS: COVID-19 RT-PCR UVMMC Result Negative (Negative)
== END 2021-02-05 21:24 | disposition home or self-care (01) ==
LOC: LBN 21:23
PROVIDERS: PCP Physician Assistant; Visit Provider Family Medicine
DX: Z20.822 Contact with and (suspected) exposure to COVID-19 (principal); J06.9 Acute upper respiratory infection, unspecified
CPT/HCPCS: U0003

== ENCOUNTER 2021-06-12 10:26 | Emergency (ER) | payer MEDICAID, SELFPAY ==
--- NOTE | 2021-06-12 10:43 | W.ED.GENAD ---
Discharge Plan Disposition Patient Disposition: HOME Condition: Stable Discharge Details Clinical Impression: Foot pain, left, Gout Primary Care Provider: Clinton Cruz ED Provider: Carlie Jones Home Meds and New Rx's Prescriptions: New indomethacin 50 mg capsule 50 mg PO BID 7 Days Qty: 14 0RF Rx Instructions: administer with food or milk prednisone 20 mg tablet 20 mg PO DAILY 5 Days Qty: 5 0RF No Action gabapentin 600 mg tablet 600 mg PO TID 30 Days Qty: 90 11RF Rx Instructions: no abrupt cessation lisinopril 20 mg Tablet 20 mg PO DAILY 0RF amlodipine 10 mg Tablet 10 mg PO DAILY 0RF pantoprazole 40 mg Tablet,Delayed Release (Dr/Ec) 40 mg PO DAILY 0RF albuterol sulfate [ProAir HFA] 90 mcg/actuation Hfa Aerosol Inhaler 2 puff INHALATION Q6H PRN0RF spironolactone 50 mg Tablet 50 mg PO DAILY 0RF ondansetron HCl [Zofran] 4 mg tablet 4 mg PO Q8H PRNQty: 10 0RF Discharge Instructions Instructions: Gout (ED), Foot Sprain (ED) Additional Instructions: Please discuss with your primary care provider a medication called colchicine which can be used for prevention of gout flareups. Take indomethacin and prednisone as prescribed. Follow up with primary care provider in 7 days as previously scheduled Return to ED sooner if any worsening or concerns. Increase oral fluids. Rest, ice, compression, elevation. Referrals: Clinton Cruz [Primary Care Provider] - 1 week Chris Adams MD [ [facility] STAFF PHYSICIAN] - Return if symptoms worsen (You will be placed on Follow up List so they will look at X-rays and call you if they need to see you) Discharge Data Discharge Date/Time-TO BE ENTERED AT DEPARTURE: 06/12/21 12:20 Medical Decision Making 40-year-old male presents to the ER with chief complaint of left foot pain which began yesterday. He reports that he woke up this morning was unable to walk on it. He does admit to eating red meat recently he denies any recent alcohol or red wine. He does have a history of gout. He denies any trauma or injury. No obvious signs of trauma or deformity. He was seen for the approximately a year ago. He reports his last gout flareup was approximately 4 to 5 months ago. States he does have a upcoming PCP appointment this week. He denies any other associated symptoms. Does have a past medical history of GERD, hypertension, asthma, back pain, sleep apnea and depression. History of a murmur. She is a daily smoker, reports occasional alcohol, daily marijuana use. Imaging ordered to rule out underlying fracture or injury. Indomethacin 50 mg p.o. and 20 mg prednisone given here in the department. X-ray results noted below. There is a questionable hallux valgus deformity will place patient in a walking boot and evaluate ambulation prior to discharge. Will refer patient to orthopedics. Imaging Data Radiologic Study: Imaging: X-Ray Radiologist's impression: Imaging protocol: XR Left foot. Views: 3 or more views. COMPARISON: CR XR ANKLE LT COMPLETE 09/29/2020 6:53 PM FINDINGS: Bones/joints: Soft tissue swelling about the 1st metatarsal phalangeal joint space and forefoot. Calcaneal spur formation at the plantar aponeurosis insertion and Achilles tendon insertion. No erosive changes. No evidence of acute fracture . Mild hallux valgus deformity Soft tissues: See Bones/joints finding. IMPRESSION: Soft tissue swelling. Thank you for allowing us to participate in the care of your patient. Dictated and Authenticated by: Phoebe Nichols MD HPI General Mode of arrival: ambulatory. Date/Time Provider Initiated Documentation: 06/12/21 10:36. Limitations to Documentation: no limitations. Information obtained by: patient, RN notes reviewed and old records reviewed. HPI Narrative: 40-year-old male presents to the ER with chief complaint of left foot pain which began yesterday. He reports that he woke up this morning was unable to walk on it. He does admit to eating red meat recently he denies any recent alcohol or red wine. He does have a history of gout. He denies any trauma or injury. No obvious signs of trauma or deformity. He was seen for the approximately a year ago. He reports his last gout flareup was approximately 4 to 5 months ago. States he does have a upcoming PCP appointment this week. He denies any other associated symptoms. Does have a past medical history of GERD, hypertension, asthma, back pain, sleep apnea and depression. History of a murmur. She is a daily smoker, reports occasional alcohol, daily marijuana use. Related Data Home Medications Medication Instructions Recorded Confirmed albuterol sulfate 90 mcg/actuation 2 puff INHALATION Q6H PRN 04/23/20 06/12/21 aerosol inhaler (ProAir HFA) amlodipine 10 mg tablet 10 mg PO DAILY 04/23/20 06/12/21 lisinopril 20 mg tablet 20 mg PO DAILY 04/23/20 06/12/21 pantoprazole 40 mg tablet,delayed 40 mg PO DAILY 04/23/20 06/12/21 release spironolactone 50 mg tablet 50 mg PO DAILY 04/23/20 06/12/21 gabapentin 600 mg tablet 600 mg PO TID 30 Days #90 tab 07/02/20 06/12/21 ondansetron HCl 4 mg tablet 4 mg PO Q8H PRN #10 tab 12/03/20 06/12/21 (Zofran) indomethacin 50 mg capsule 50 mg PO BID 7 Days #14 cap 06/12/21 prednisone 20 mg tablet 20 mg PO DAILY 5 Days #5 tab 06/12/21 Previous Rx's Medication Instructions Recorded gabapentin 600 mg tablet 600 mg PO TID 30 Days #90 tab 07/02/20 ondansetron HCl 4 mg tablet 4 mg PO Q8H PRN #10 tab 12/03/20 (Zofran) indomethacin 50 mg capsule 50 mg PO BID 7 Days #14 cap 06/12/21 prednisone 20 mg tablet 20 mg PO DAILY 5 Days #5 tab 06/12/21 Allergies Allergy/AdvReac Type Severity Reaction Status Date / Time No Known Allergies Allergy Unverified 06/12/21 11:34 General KARL: 3 Review of Systems All systems reviewed & are unremarkable except as noted in HPI and below Musculoskeletal Musculoskeletal: Reports as per HPI, Denies back pain and Reports joint swelling (Left lateral foot and ankle.) Integumentary/Breasts Skin/Breast: Reports skin swelling (Erythema, swelling noted to left lateral foot.) PFSH All Active Problems (Updated 06/12/21 @ 12:02 by Carlie Jones) Gout of left ankle (Acute) Nausea and vomiting (Acute) Foot pain, left (Acute) Gout (Chronic) Medical History Asthma Back pain Depression GERD (gastroesophageal reflux disease) Hypertension Murmur Sleep apnea Tobacco use Social History Smoking/Tobacco Use Status: Current every day Tobacco Type: cigarettes Tobacco: How many years used: 25 Smoking risk assessment performed?: Yes Alcohol Intake: current Alcohol Intake frequency: holidays/special occasions only Drug use: Daily Substance use type: marijuana Housing: other Details: living in [facility] current occupation: N/A What type of physical activity do you participate in: independent ambulation Do you feel safe at home: Yes Do you feel safe in your relationship?: Yes Additional Social history: lives in shelter house with four other residents Exam Narrative Exam Narrative: Constitutional: Alert and oriented x3. Appears stated age. Obese body habitus. Head: Normocephalic, no trauma. Eyes: EOM's intact. Eyelids symmetrical without lesions, discharge, or swelling. Chest: RRR, distal pulses intact. Patient is hypertensive upon arrival. Resp: Breathing eupneic, no respiratory distress. Abdomen: Soft, non-distended, Normoactive bowel sounds all 4 quads. Musculoskeletal: Normal gait, 5/5 strength to all four extremities. Skin: No suspicious rashes or lesions. Capillary refill less than 2 sec. erythema dorsum left foot. No obvious deformity. No pain noted to left knee. Ecchymosis noted to the dorsum of left foot. Neurologic: Alert and oriented x4, no focal neuro deficits clear speech.
[2021-06-12 10:46] VITALS: BP 185/111; PULSE 87; RESP 18; TEMP 36.7; O2SAT 97
--- NOTE | 2021-06-12 11:00 | DI.RAD_ITS ---
Exam(s) XR FOOT LT COMPLETE EXAM: XR FOOT LT COMPLETE CLINICAL HISTORY: Pain, Swelling, R/O Injury, Hx of gout TECHNIQUE: COMPARISON: No exams were available for comparison FINDINGS: Three views were obtained. There are small enthesophytes at the sites of attachment of plantar fasci a and Achilles tendon on the calcaneus. Minimal degenerative changes of the IP joints. No specific evidence of gout. No evidence of fracture or dislocation. IMPRESSION: RADIATION DOSE DELIVERED: Total DLP
[2021-06-12] MEDS: Indomethacin 25 MG CAP 50 MG PO (11:31)
[2021-06-12] MEDS: predniSONE 20 MG TAB PO (11:31)
--- NOTE | 2021-06-12 11:36 | DI.VRAD_ITS ---
PROCEDURE INFORMATION: Exam: XR Left Foot Exam date and time: 06/12/2021 11:23 AM Age: 40 years old Clinical indication: Pain; Foot; Left; Patient HX: HX gout TECHNIQUE: Imaging protocol: XR Left foot. Views: 3 or more views. COMPARISON: CR XR ANKLE LT COMPLETE 09/29/2020 6:53 PM FINDINGS: Bones/joints: Soft tissue swelling about the 1st metatarsal phalangeal joint space and forefoot. Calcaneal spur formation at the plantar aponeurosis insertion and Achilles tendon insertion. No erosive changes. No evidence of acute fracture . Mild hallux valgus deformity Soft tissues: See Bones/joints finding. IMPRESSION: Soft tissue swelling. Dictated and Authenticated by: Phoebe Nichols MD. Ordering:ISSA Sexton MD
[2021-06-12] MEDS: Ibuprofen 400 MG TAB PO (12:13)
== END 2021-06-12 12:20 | disposition home or self-care (01) ==
PROVIDERS: Emergency Provider Registered Nurse Emergency; PCP Physician Assistant
DX: M79.672 Pain in left foot (principal); M10.9 Gout, unspecified
CPT/HCPCS: 29515; 99283; 73630; J7512

== ENCOUNTER 2021-06-25 19:01 | Outpatient (REF) | payer MEDICAID, SELFPAY ==
[2021-06-27 11:43] LABS: COVID-19 RT-PCR UVMMC Result Negative (Negative)
== END 2021-06-25 19:02 | disposition home or self-care (01) ==
LOC: NCHCN 19:01
PROVIDERS: PCP Physician Assistant; Visit Provider Physician Assistant
DX: Z20.822 Contact with and (suspected) exposure to COVID-19 (principal); R05.8 Other specified cough
CPT/HCPCS: U0003

== ENCOUNTER 2021-12-07 15:05 | Outpatient (REF) | payer MEDICAID, SELFPAY ==
[2021-12-07 15:44] LABS: Abs Immature Grans 0.04 10^3/uL (0.0-0.06); Absolute Basophil Count 0.06 10^3/uL (0.0-0.2); Absolute Eosinophil Count 0.32 10^3/uL (0.0-0.7); Absolute Lymphocyte Count 1.15 10^3/uL (1.2-3.4); Absolute Monocyte Count 0.74 10^3/uL (0.1-0.8); Absolute Neutrophil Count 7.43 10^3/uL (1.2-6.7); Basophils % 0.6; Eosinophils % 3.3; HCT 51.1 % (40.0-50.0); HGB 17.6 g/dL (13.5-17.5); Immature Grans % 0.4; Lymphocytes % 11.8; MCH 30.1 pg (27.0-33.0); MCHC 34.4 % (32.0-36.0); MCV 88 fL (80-95); MPV 12.6 fL (8.0-11.0); Monocytes % 7.6; Neutrophils % 76.3; Platelet Count 149 10^3/uL (130-400); RBC 5.84 10^6/uL (4.36-5.78); RDW 13.2 % (11.8-14.1); RDW-SD 42.2 fL; WBC 9.74 10^3/uL (4.4-10.8)
[2021-12-07 16:15] LABS: ALT 22 U/L (16-63); AST 21 U/L (15-37); Albumin 3.8 g/dL (3.4-5.0); Alkaline Phosphatase 77 U/L (46-116); Anion Gap 8.8 mmol/L (3-11); BUN 14 mg/dL (7-18); Bilirubin, Total 0.5 mg/dL (0.2-1.0); CO2 26.2 mmol/L (21.0-32.0); CREATININE 0.9 mg/dL (0.70-1.30); Calculated LDL 93 mg/dL (<100); Chloride 105 mmol/L (98-107); Cholesterol 162 mg/dL (<200); Estimated GFR 110.73 (mL/min/1.73m2); Glucose 96 mg/dL (74-106); HDL Cholesterol 38 mg/dL (40-60); Potassium 4.2 mmol/L (3.5-5.1); Sodium 140 mmol/L (136-145); Triglyceride 159 mg/dL (<150)
[2021-12-07 16:22] LABS: Hemoglobin A1C 5.6 % (<5.7)
== END 2021-12-07 15:06 | disposition home or self-care (01) ==
LOC: NCHCN 15:05
PROVIDERS: PCP Physician Assistant; Visit Provider Physician Assistant
DX: Z00.00 Encounter for general adult medical examination without abnormal findings (principal); D75.1 Secondary polycythemia; I10 Essential (primary) hypertension
CPT/HCPCS: 80053; 80061; 83036; 85025

== ENCOUNTER 2022-08-20 16:17 | Emergency (ER) | payer MEDICAID, SELFPAY ==
[2022-08-20 16:20] VITALS: PULSE 59; RESP 18; TEMP 37.2; O2SAT 95
[2022-08-20 16:22] VITALS: BP 197/104
--- NOTE | 2022-08-20 16:52 | W.ED.GENAD ---
Discharge Plan Disposition Patient Disposition: Home Discharge Details Clinical Impression: Nausea, Diarrhea Primary Care Provider: Clinton Cruz ED Provider: Julian Urena [place] Meds and New Rx's Prescriptions: New prochlorperazine maleate 10 mg tablet 10 mg PO Q8H PRN (Reason: nausea and vomiting) Qty: 10 0RF Continued gabapentin 600 mg tablet 600 mg PO TID 30 Days Qty: 90 11RF Rx Instructions: no abrupt cessation lisinopril 20 mg Tablet 20 mg PO DAILY amlodipine 10 mg Tablet 10 mg PO DAILY pantoprazole 40 mg Tablet,Delayed Release (Dr/Ec) 40 mg PO DAILY albuterol sulfate [ProAir HFA] 90 mcg/actuation Hfa Aerosol Inhaler 2 puff INHALATION Q6H PRN spironolactone 50 mg Tablet 50 mg PO DAILY Discharge Instructions Instructions: Acute Nausea and Vomiting (ED), Acute Diarrhea (ED) Additional Instructions: You were seen for nausea, abdominal discomfort, diarrhea which is likely viral in nature. Your laboratory studies and exam are reassuring. Would stick with a clear liquid/bland diet for the next couple of days. Prochlorperazine if needed for any recurrent nausea vomiting. Follow-up with primary care next week if not improving. Return to ED for bloody diarrhea, worsening abdominal pain, persistent vomiting, high fever. Referrals: Clinton Cruz [Primary Care Provider] - Medical Decision Making Patient presents to ED with persistent nausea, diffuse abdominal discomfort, diarrhea. No vomiting since last night. Abdomen is benign. Will place IV and give fluids and Zofran for his nausea. We will give Levsin for the abdominal cramping, check laboratory studies and reevaluate. Patient's laboratory studies are unremarkable. White count is normal. Chemistries, kidney function, liver function, lipase all normal. Patient reports minimal improvement with Zofran and Levsin. He was given prochlorperazine with significant improvement of symptoms. Abdomen remains benign. We will plan discharge once his fluids are completed. Prescription for prochlorperazine sent to pharmacy. Follow-up with primary care next week if not improving. Return precautions provided. Lab Data Lab results reviewed: Yes I reviewed the patient's lab results. HPI General Date/Time Provider Initiated Documentation: 08/20/22 16:52. Limitations to Documentation: no limitations. Information obtained by: patient. HPI Narrative: Patient presents to ED with complaint of nausea, vomiting last night, diarrhea today with diffuse abdominal cramping. Denies any fever. Is able to drink some but unable to tolerate solids. Denies any travel outside the [place], eating or drinking contaminated food or liquids, sick contacts. At this point nausea versus chief problem and complaint. No previous abdominal surgeries. Related Data Home Medications Medication Instructions Recorded Confirmed albuterol sulfate 90 mcg/actuation 2 puff inhalation Q6H PRN 04/23/20 08/20/22 aerosol inhaler (ProAir HFA) amlodipine 10 mg tablet 10 mg PO DAILY 04/23/20 08/20/22 lisinopril 20 mg tablet 20 mg PO DAILY 04/23/20 08/20/22 pantoprazole 40 mg tablet,delayed 40 mg PO DAILY 04/23/20 08/20/22 release spironolactone 50 mg tablet 50 mg PO DAILY 04/23/20 08/20/22 gabapentin 600 mg tablet 600 mg PO TID 30 days #90 tabs 07/02/20 08/20/22 prochlorperazine maleate 10 mg 10 mg PO Q8H PRN nausea and 08/20/22 tablet vomiting #10 tabs Previous Rx's Medication Instructions Recorded gabapentin 600 mg tablet 600 mg PO TID 30 days #90 tabs 07/02/20 prochlorperazine maleate 10 mg 10 mg PO Q8H PRN nausea and 08/20/22 tablet vomiting #10 tabs Allergies Allergy/AdvReac Type Severity Reaction Status Date / Time No Known Allergies Allergy Unverified 08/20/22 19:13 General Stated Complaint: Nausea/Vomit/Diar KARL: 3 Review of Systems Narrative: Per HPI PFSH All Active Problems (Updated 08/20/22 @ 19:11 by Julian Urena MD) Gout of left ankle (Acute) Nausea and vomiting (Acute) Nausea (Acute) Diarrhea (Acute) Medical History Asthma Back pain Depression GERD (gastroesophageal reflux disease) Hypertension Murmur Sleep apnea Tobacco use Social History Smoking/Tobacco Use Status: Current every day Tobacco Type: cigarettes Tobacco: How many years used: 25 Smoking risk assessment performed?: Yes Alcohol Intake: current Alcohol Intake frequency: holidays/special occasions only Drug use: Daily Substance use type: marijuana Housing: other Details: living in [facility] current occupation: N/A What type of physical activity do you participate in: independent ambulation Do you feel safe at home: Yes Do you feel safe in your relationship?: Yes Additional Social history: lives in snf house with four other residents Exam Narrative Exam Narrative: Const: Obese male in NAD. HEENT: NC/AT. Normal facial exam. Eyes: Normal conjunctiva and sclera. Neck: Supple. Trachea midline. Lungs: Normal respiratory effort. Lungs are clear. Cor: RRR without murmur/gallop. Good radial pulses. GI: Soft. NT/ND. No guarding or rebound. Neuro: A+O x 3. Normal speech, mentation, gait. Cranial nerves II - XII grossly intact. No gross motor or sensory deficit. Course Vital Signs Vital signs: Vital Signs Temperature 98.9 F 08/20/22 16:20 Pulse 59 L 08/20/22 16:20 Respiratory Rate 18 08/20/22 16:20 Pulse Oximetry 95 08/20/22 16:20 Temperature 98.9 F 08/20/22 16:20 Temperature Source Oral 08/20/22 16:20 Pulse 59 L 08/20/22 16:20 Respiratory Rate 18 08/20/22 16:20 Respiratory Effort Normal, Non-Labored 08/20/22 16:22 Blood Pressure 197/104 H 08/20/22 16:22 Pulse Oximetry 95 08/20/22 16:20 Oxygen Delivery Method Room Air 08/20/22 16:20 Oxygen Flow Rate 0 08/20/22 16:20
[2022-08-20 17:38] LABS: Abs Immature Grans 0.02 10^3/uL (0.0-0.06); Absolute Basophil Count 0.06 10^3/uL (0.0-0.2); Absolute Eosinophil Count 0.11 10^3/uL (0.0-0.7); Absolute Lymphocyte Count 1.43 10^3/uL (1.2-3.4); Absolute Monocyte Count 0.52 10^3/uL (0.1-0.8); Absolute Neutrophil Count 5.25 10^3/uL (1.2-6.7); Basophils % 0.8; Eosinophils % 1.5; HCT 49.8 % (40.0-50.0); HGB 17.4 g/dL (13.5-17.5); Immature Grans % 0.3; Lymphocytes % 19.4; MCHC 34.9 % (32.0-36.0); MCV 86 fL (80-95); MPV 11.3 fL (8.0-11.0); Platelet Count 155 10^3/uL (130-400); RDW 13.2 % (11.8-14.1); RDW-SD 41.1 fL; WBC 7.39 10^3/uL (4.4-10.8)
[2022-08-20] MEDS: Hyoscyamine 0.125 MG SL/ORAL/CHEW SL (17:47)
[2022-08-20] MEDS: Normal Saline 1,000 ML 1000 ML IV (17:47)
[2022-08-20] MEDS: Ondansetron 4 MG/2 ML VIAL IVP (17:48)
[2022-08-20 17:54] LABS: ALT 18 U/L (16-63); AST 16 U/L (15-37); Albumin 3.8 g/dL (3.4-5.0); Alkaline Phosphatase 80 U/L (46-116); Anion Gap 10.7 mmol/L (3-11); BUN 9 mg/dL (7-18); Bilirubin, Total 0.4 mg/dL (0.2-1.0); CO2 26.3 mmol/L (21.0-32.0); Calcium 9.1 mg/dL (8.5-10.1); Chloride 105 mmol/L (98-107); Estimated GFR 96.97 (mL/min/1.73m2); Glucose 99 mg/dL (74-106); Lipase 29 U/L (16-77); Magnesium 2.1 mg/dL (1.8-2.4); Potassium 3.8 mmol/L (3.5-5.1); Sodium 142 mmol/L (136-145); Total Protein 8.2 g/dL (6.4-8.2)
[2022-08-20] MEDS: Prochlorperazine 10 MG/2 ML VIAL IVP (18:53)
== END 2022-08-20 19:26 | disposition home or self-care (01) ==
PROVIDERS: Emergency Provider Emergency Medicine; PCP Physician Assistant
DX: R19.7 Diarrhea, unspecified (principal); R11.0 Nausea
CPT/HCPCS: 80053; 83690; 96361; 96374; 96375; 99284; 83735; 85025; J0780; J2405; J3490

== ENCOUNTER → 2023-03-01 01:01 | Outpatient (CLI) | payer MEDICAID, SELFPAY ==
--- NOTE | 2023-03-01 | DI.RAD_ITS ---
Exam(s) XR SHOULDER LT COMPLETE 2+V EXAM: XR SHOULDER LT COMPLETE 2+V CLINICAL HISTORY: PAIN LT SHOULDER, M25.512, HX LT CLAVICULAR FX. TECHNIQUE: 2D digital imaging was performed. Five views. COMPARISON: CR CHEST 2 VIEWS PA,LAT from 07/16/2009 CR LEFT SHOULDER COMPLETE from 03/13/2014 FINDINGS: BONES: No acute fracture is present. There is slight deformity of the distal clavicle which could be related to an old fracture no bony destructive lesion is seen. JOINTS: No dislocation present. No significant degenerative changes. SOFT TISSUE: Normal. No soft tissue calcifications. IMPRESSION: No acute abnormality. DATA REPOSITORY: RADIATION DOSE DELIVERED:
== END ==
PROVIDERS: PCP Physician Assistant; Visit Provider Nurse Practitioner Family
DX: M25.512 Pain in left shoulder (principal); Z87.81 Personal history of (healed) traumatic fracture
CPT/HCPCS: 73030

== ENCOUNTER 2023-03-24 11:39 | Emergency (ER) | payer MEDICAID, SELFPAY ==
[2023-03-24 12:00] VITALS: BP 202/117; PULSE 96; RESP 18; TEMP 36.5; O2SAT 98
== END 2023-03-24 14:20 ==
PROVIDERS: PCP Physician Assistant
DX: Z53.21 Procedure and treatment not carried out due to patient leaving prior to being seen by health care provider (principal)

== ENCOUNTER 2024-01-09 11:02 | Emergency (ER) | payer MEDICAID, SELFPAY ==
[2024-01-09 11:14] VITALS: BP 216/118; PULSE 73; RESP 14; TEMP 36.6; O2SAT 98
[2024-01-09] MEDS: Ondansetron O.D.T. 4 MG TABEF PO (12:19)
--- NOTE | 2024-01-09 13:06 | ED.GENADUL_ITS ---
Discharge Plan Disposition Patient Disposition: Home Condition: Good Discharge Details Clinical Impression: Nausea & vomiting Primary Care Provider: Clinton Cruz ED Provider: Ran Kirk Home Meds and New Rx's Prescriptions: No Action gabapentin 600 mg tablet 600 mg PO TID 30 Days Qty: 90 11RF Rx Instructions: no abrupt cessation prochlorperazine maleate 10 mg tablet 10 mg PO Q8H PRN (Reason: nausea and vomiting) Qty: 10 0RF lisinopril 20 mg Tablet 20 mg PO DAILY amlodipine 10 mg Tablet 10 mg PO DAILY pantoprazole 40 mg Tablet,Delayed Release (Dr/Ec) 40 mg PO DAILY albuterol sulfate [ProAir HFA] 90 mcg/actuation Hfa Aerosol Inhaler 2 puff INHALATION Q6H PRN spironolactone 50 mg Tablet 50 mg PO DAILY Discharge Instructions Instructions: Nausea and Vomiting, Adult ED Additional Instructions: Please stick with a bland diet over the next 2 to 3 days. Avoid any fatty greas y spicy or tomato-based products. Please take the Zofran as needed for nausea. Please continue to take your home medications including your hypertension medications. If you notice any worsening of your symptoms, or any new symptoms such as vomiting, diarrhea, fever, chills, shortness of breath, chest pain, numbness, weakness, or fainting , please return immediately to the emergency department for reevaluation. Please follow up with your primary care provider as soon as possible for reassessment and reevaluation. As always, it was a pleasure participating in your medical care today. Referrals: Clinton Cruz [Primary Care Provider] - [facility] General Date/Time Provider Initiated Documentation: 01/09/24 11:55 . HPI Narrative: 43-year-old male who is currently homeless presents today for evaluation of nausea and vomiting and epigastric discomfort. Patient states that yesterday he went and ate a bunch of pizza and wings with his friends last night, shortly thereafter he had nausea and then experienced 4 episodes of vomiting. That all occurred last evening, he has not vomited any since then. He does admit to mild epigastric discomfort, and some mild nausea but no more vomiting. He denies any diarrhea. He denies any chest pain or shortness of breath. He has not taken his medications for the last month secondary to not being near his rig which holds my meds. Patient denies any other complaints at this time. No other modifying factors. Related Data Home Medications ?Medication ?Instructions ?Recorded ?Confirmed albuterol sulfate 90 mcg/actuation 2 puff inhalation Q6H PRN 04/23/20 01/09/24 aerosol inhaler (ProAir HFA) amlodipine 10 mg tablet 10 mg PO DAILY 04/23/20 01/09/24 lisinopril 20 mg tablet 20 mg PO DAILY 04/23/20 01/09/24 pantoprazole 40 mg tablet,delayed 40 mg PO DAILY 04/23/20 01/09/24 release spironolactone 50 mg tablet 50 mg PO DAILY 04/23/20 01/09/24 gabapentin 600 mg tablet 600 mg PO TID 30 days #90 tabs 07/02/20 01/09/24 prochlorperazine maleate 10 mg 10 mg PO Q8H PRN nausea and 08/20/22 01/09/24 tablet vomiting #10 tabs Previous Rx's ?Medication ?Instructions ?Recorded gabapentin 600 mg tablet 600 mg PO TID 30 days #90 tabs 07/02/20 prochlorperazine maleate 10 mg 10 mg PO Q8H PRN nausea and 08/20/22 tablet vomiting #10 tabs Allergies Allergy/AdvReac Type Severity Reaction Status Date / Time No Known Allergies Allergy Unverified 01/09/24 11:17 General Stated Complaint: Nausea/Vomit/Diar KARL: 4 Review of Systems All systems reviewed & are unremarkable except as noted in HPI and below Exam Narrative Exam Narrative: 1.Const: Well-nourished, Well-developed, appearing stated age 2.Eyes: PERRL, no conjunctival injection, and symmetrical lids. 3.ENT: Atraumatic external nose and ears. Moist MM. Neck: Symmetric, trachea midline, No thyromegaly. 4.CVS: +S1/S2, Peripheral pulses 2+ and equal in all extremities. Brisk capillary refill in all extremities. 5.RESP: Unlabored respiratory effort. Clear to auscultation bilaterally. No wheezes rales or rhonchi 6.GI: Soft, Nontender/Nondistended, No hepatosplenomegaly. No guarding or rebound. No epigastric discomfort. No pain at McBurney's point. Negative Mathews sign. 7.MSK: Normocephalic/Atraumatic, Extremities w/o deformity or ttp No cyanosis or clubbing, Normal movement of all extremities 8.Skin: Warm, Dry. No rashes or lesions. 9.Neuro: denial management representative II-XII grossly intact. Sensation grossly intact, no focal neurologic deficits. 10.Psych: (AAO) x3. Appropriate mood and affect Course Vital Signs Vital signs: Vital Signs Temperature 36.6 C 01/09/24 11:14 Pulse 73 01/09/24 11:14 Respiratory Rate 14 01/09/24 11:14 Blood Pressure 216/118 H 01/09/24 11:14 Pulse Oximetry 98 01/09/24 11:14 Temperature 36.6 C 01/09/24 11:14 Temperature Source Oral 01/09/24 11:14 Pulse 73 01/09/24 11:14 Respiratory Rate 14 01/09/24 11:14 Respiratory Effort Normal, Non-Labored 01/09/24 11:20 Blood Pressure 216/118 H 01/09/24 11:14 Blood Pressure Position Sitting 01/09/24 11:14 Pulse Oximetry 98 01/09/24 11:14 Oxygen Delivery Method Room Air 01/09/24 11:14 Oxygen Flow Rate 0 01/09/24 11:14 Pain Level 8 01/09/24 11:20 Medical Decision Making 43-year-old male who is currently homeless presents today for evaluation of nausea and vomiting and epigastric discomfort. Patient states that yesterday he went and ate a bunch of pizza and wings with his friends last night, shortly thereafter he had nausea and then experienced 4 episodes of vomiting. That all occurred last evening, he has not vomited any since then. He does admit to mild epigastric discomfort, and some mild nausea but no more vomiting. He denies any diarrhea. He denies any chest pain or shortness of breath. He has not taken his medications for the last month secondary to not being near his rig which holds my meds. Patient denies any other complaints at this time. No other modifying factors. Exam demonstrates well-appearing male, mucous membranes are not overly dry. He is hypertensive but he has not been taking his medications. No tachycardia. No epigastric pain or discomfort on palpation. No guarding or rebound. No evidence of acute surgical abdomen whatsoever. I suspect the patient ate a castor reactive substance last night, leading to his subsequent vomiting which has resolved. Will give a GI cocktail and Zofran, do p.o. trial, monitor closely and reassess. After GI cocktail and Zofran patient is feeling much better. We performed p.o. trial and he did very well with this. No guarding or rebound. No signs of an acute surgical abdomen. Patient stable for discharge. Patient will be disch arged home. Will give a small bottle of Zofran to go. Discussed red flags for which to return. I have extensively reviewed the treatment plan and discharge instructions with the patient. I have addressed all patient concerns at this time. The patient was made aware of what symptoms to monitor for that would warrant a return to the emergency department. Discussed the plan with the patient, they demonstrate verbal understanding and agreement with our assessment and plan at this time. The documentation in this chart was dictated using [employer] dictation software. Please excuse any dictation errors. Quality:SDOH Health Related Social Needs: Health related social needs housing instability, house d, with risk of homelessness(Z59.811), material hardship(utilities)(Z59.87), food insecurity(Z59.41), transportation insecurity(Z59.82) PFSH All Active Problems (Updated 01/09/24 @ 13:12 by Ran Kirk DO) Nausea & vomiting (Acute) Nausea and vomiting (Acute) Gout of left ankle (Acute) Medical History Tobacco use Back pain Depression Murmur Sleep apnea GERD (gastroesophageal reflux disease) Hypertension Asthma Social History Smoking/Tobacco Use Status: Current every day Tobacco Type: cigarettes Tobacco: How many years used: 25 Smoking risk assessment performed?: Yes Alcohol Intake: current Alcohol Intake frequency: holidays/special occasions only Drug use: Daily Substance use type: marijuana Housing: other Details: living in [facility] current occupation: N/A What type of physical activity do you participate in: independent ambulation Do you feel safe at home: Yes Do you feel safe in your relationship?: Yes Additional Social history: lives in skilled nursing house with four other residents
[2024-01-09] MEDS: Ondansetron O.D.T. 4 MG TABEF, 3 TABS/BTL PO (14:05)
[2024-01-09 14:11] VITALS: BP 221/120; PULSE 61; RESP 16; O2SAT 98
[2024-01-09] MEDS: Lisinopril 20 MG TAB PO (14:18)
[2024-01-09] MEDS: amLODIPine 10 MG TAB PO (14:18)
--- OUTSIDE RECORDS SUMMARY | 2024-01-09 16:12 | XMS_ITS | Encounter Summary ---
[facility] Organization [facility] [place] [address] Care Team Providers Care Director Of Advertising Sales Name Role Phone Violet Martinez MD Primary Care Provider [phone] Reason for Visit * Reason Comments Shoulder Pain Encounter Details Date Type Department Care Team (Late st Contact Info) Description 01/16/2023 6:49 AM EST - 01/16/2023 3:55 PM EST [place] [id number] Apolonia Collins MD [facility] [place] [address] Back pain, unspecified back location, unspecified back pain laterality, unspecified chronicity; Hypertension, unspecified type Discharge Disposition: Home Social History Tobacco Use Types Packs/Day Years Used Date Smoking Tobacco: Never Assessed Sex and Gender Information Value Date Recorded Sex Assigned at Not on file Gender Identity Not on file Sexual Orientation Not on file documented as of this encounter Last Filed Vital Signs Vital Sign Reading Time Taken Comments Blood Pressure 182/111 01/16/2023 3:00 PM EST Pulse 86 01/16/2023 3:00 PM EST Temperature 36.6 ??C (97.9 ??F) 01/16/2023 6:55 AM ES T Respiratory Rate 18 01/16/2023 3:00 PM EST Oxygen Saturation 96% 01/16/2023 3:00 PM EST Inhaled Oxygen Concentration - - Weight 140.5 kg (309 lb 12.8 oz) 01/16/2023 6:55 AM EST Height 177.8 cm (5' 10) 01/16/2023 6:55 AM EST Body Mass Index 44.45 01/16/2023 6:55 AM EST documented in this encounter Discharge Instructions * Discharge Instructions* Apolonia Collins MD - 01/16/2023 1:07 PM EST You were evaluated in the Emergency Department today for your left shoulder and left upper back pain. Your evaluation did not show signs of medical conditions requiring emergent intervention at this time. We recommend you take ibuprofen every 6 hours or tylenol every 6 hours as needed for pain. If needed, you can alternate these medications so that you take one medication every 3 hours. For instance, at noon take ibuprofen, then at 3pm take tylenol, then at 6pm take ibuprofen. Please take your muscle relaxant as prescribed. Please schedule an appointment for follow-up with your primary care physician this week for furtherevaluation of your symptoms and hypertension. Return to the Emergency Department if you experience worsening back or shoulder pain, fevers, numbness, tingling, chest pain, shortness of breath, blurry vision, severe headaches, or any other concerning symptoms. * Attachments The following attachments cannot be sent through Care Everywhere. * Shoulder Pain (Tunisian) * Back Pain (Tunisian) * Hypertension (Tunisian) documented in this encounter Medications at Time of Discharge Medication Sig Dispensed Refills Start Date End Date cyclobenzaprine (Flexeril) 10 mg tablet Take 1 tablet by mouth 3 times daily as needed for Muscle spasms for up to 3 days. No driving, no alcohol 9 tablet 01/16/2023 01/19/2023 documented as of this encounter ED Notes * Apolonia Collins MD - 01/16/2023 12:19 PM EST Brief Attending Note I cared for the patient with the medical student. Please see student's note, associated with the encounter, for more details. HPI: 42 YOM smoker with h/o HTN presents with left shoulder/back/arm pain for months, worsening forthe last week. Denies fever, cough, trauma, new leg swelling or other systemic symptoms. ROS: Pertinent positives and negatives are included in the history of present illness, otherwise 10 systems are reviewed and negative Gen: uncomfortable HENT: atraumatic, oropharynx clear, mmm Pulm: CTA b/l, no respiratory distress Card: RRR Abd: soft, non-tender, non-distended Skin: warm and dry Neuro: no focal weakness, alert and oriented x 3 MS: No obvious deformity Psych: Normal mood Assessment: 42 YOM with pain, non-toxic appearing, hypertensive. EKG and troponins do not reveal acute ischemia. CTA does not reveal acute process. Patient given meds for pain control (dilaudid, valium, lidoderm patch/tylenola and ibuprofen), discharged with flexeril patch, advised outpatient follow up, given return precautions. Apolonia Collins MD 01/16/23 1430 documented in this encounter Miscellaneous Notes * Care Management - Lenka Mejia RN - 01/16/2023 1:56 PM ESTSummary: CM Consult Was informed by RN that pt may need transportation home upon discharge. Chart reviewed. Pt does nothave insurance listed. Asked if the pt has [place] Medicaid. She spoke to the pt who stated that he did.Sent a message to about assistance with transportation and pt has [place] medicaid. Did inform RN that TVT goes up to [facility]. RN stated that pt is currently homeless and residing at the [facility]. Printed out the route and times for TVT for the River route. Soonest time is 404pm at the east entrance. Lenka Mejia RN, BSN, ACM-FREIGHT UNLOADERenvironmental field services technician Office of Care Management Pager: [phone] * ED Triage - Richi Flores RN - 01/16/2023 6:52 AM EST Pt has a hX of HTN, gout and fx of left collar bone. Pt is experiencing 10/10 left shoulder pain. Pt denies any chest pain, fall or trauma to that shoulder. Pt a&O x 4 in triage. HPI (Adult) Stated Reason for Visit: Shoulder pain History Obtained From: EMS, patient documented in this encounter Plan of Treatment Not on file documented as of this encounter Procedures Procedure Name Priority Date/Time Associated Diagnosis Comments TROPONIN - SERIES STAT 01/16/2023 10: 50 AM EST EKG 12-LEAD STAT 01/16/2023 8:[address] ANGIOGRAM CHEST ABDOMEN PELVIS W CONTRAST STAT 01/16/2023 8:20 AM EST TROPONIN - SERIES STAT 01/16/2023 7:5 0 AM EST HEMOGRAM STAT 01/16/2023 7:50 AM EST DIFFERENTIAL, AUTOMATED STAT 01/16/2023 7:50 AM EST GOLD TUBE HOLD STAT 01/16/2023 7:50 AM EST BLUE TUBE HOLD STAT 01/16/2023 7:50 AM EST CBC (WITH DIFF) STAT 01/16/2023 7:50 AM EST COMPREHENSIVE METABOLIC PANEL STAT 01/16/2023 7:50 AM EST XR CHEST ONE VIEW STAT 01/16/2023 7:2 4 AM EST documented in this encounter Results * Troponin (01/16/2023 10:50 AM EST) Troponin-T, High Sensitivity 14 <=22 ng/L [facility] Comment: This patient's troponin T concentration was determined using the Ortiz 5th Generation troponin T assay. The 99th percentile for Troponin T for this test is 14 ng/L for females, and 22 ng/L for males. According to the fourth universal definition of myocardial infarction, the term acute myocardial infarction should be used when there is acute myocardial injury with clinical evidence of acute myocardial ischemia and with detection of a rise and/or fall of cardiac troponin values with at least one value above the 99th percentile and at least one of the following: - Symptoms of myocardial ischemia; - New ischemic ECG changes; - Development of pathological Q waves; - Imaging evidence of new loss of viable myocardium or new regional wall motion abnormality in a pattern consistent with an ischemic etiology; - Identification of a coronary thrombus by angiography or autopsy (not for type 2 or 3 MIs) Serial measurement of troponin and the change in troponin concentration over time (delta) is crucial for the diagnosis of acute myocardial infarction. Guidance on the interpretation of the new 5th Generation Troponin T values and the delta troponin value can be found in the [facility] Test Catalog Troponin - [facility] Test Catalog Reference: [place] Definition of Myocardial Infarction. Journal of the [employer] [place] College of Cardiology 2018;72:2721-5529 Blood 01/16/2023 10:5 0 AM EST 01/16/2023 11:53 AM EST Narrative Resulting Agency Comment Spec In Lab Apolonia Collins MD CHEMISTRY ORDERABLES Performing Organization Address City/[facility]/[place] [address] * EKG 12 Lead (01/16/2023 8:22 AM EST) Ventricular rate 76 BPM MUSE SYSTEM Atrial Rate 76 BPM MUSE SYSTEM P-R Interval 146 ms MUSE SYSTEM QRS Duration 86 ms MUSE SYSTEM Q-T Interval 380 ms MUSE SYSTEM QTC Calculated (Bezet) 427 ms MUSE SYSTEM Calculated P Dutton 42 degrees MUSE SYSTEM Calculated R Dutton 28 degrees MUSE SYSTEM Calculated T Dutton 20 degrees MUSE SYSTEM INTERPRETATION Normal sinus rhythm Normal ECG No previous ECGs available Confirmed by MD Padmaja, Mayank ([id number]) on 01/18/2023 6:29:28 PM MUSE SYSTEM 01/16/2023 8:22 AM EST 01/18/2023 6:29 PM EST Apolonia Collins MD ECG ORDERABLES Performing Organization Address City/[facility]/ZIP Co de Phone Number MUSE SYSTEM * CT Angiogram Chest Abdomen Pelvis w Contrast (01/16/2023 8:20 AM EST) Anatomical Region Laterality Modality Abdomen, Chest Computed Tomogra phy Impressions 01/16/2023 9:23 AM EST 1. ??No evidence of dissection or acute aortic syndrome. 2. ??Dense aortic valvular calcifications, greater than expected for patient age. If there is no known history of bicuspid aortic valve, consider transthoracic echocardiogram. 3. ??Slightly ectatic ascending aorta, 4.1 cm. 4. ??Borderline hepatic steatosis. I have personally reviewed the image(s) and the resident's interpretation and agree with the findings, Garrett Higgins MD at 01/16/2023 9:23 AM Thank you for letting us participate in the care of this patient. ??If you are a health care provider and have any questions regarding this report, please contact the number below. ??For patients who have questions please contact the health ambulatory care nurse that requested your imaging first. ? Electronically signed by: Garrett Higgins MD, [facility] ([phone]), at 01/16/2023 9:23 AM Narrative 01/16/2023 9:23 AM EST EXAMINATION: CT ANGIOGRAM CHEST ABDOMEN PELVIS W CONTRAST CLINICAL HISTORY: c/f aortic dissection Shoulder pain TECHNIQUE: Helical CT angiogram of the chest, abdomen and pelvis following the intravenous administration of 125.0 ml of OMNIPAQUE 350.00 mg/ml. Maximum intensity projection (MIP) were reformatted. 3-D images were generated on an independent workstation. COMPARISON: None FINDINGS: VASCULAR FINDINGS Heart: Normal size. No pericardial effusion. Prominent aortic valvular calcifications. Thoracic aorta: Slightly ectatic ascending aorta, 4.1 cm. No acute intramural hematoma, dissection flap or abnormal wall thickening. Arch branch vessel origins: Conventional three-vessel aortic arch with patent vessel origins. Pulmonary arteries: No central filling defects. Abdominal aorta: No dissection, stenosis or aneurysm. Celiac: No stenosis. SMA: No stenosis. Right renal artery: No stenosis. Left renal artery: No stenosis. ALEXIS: No stenosis. Right: Common iliac artery: No stenosis. Internal iliac artery: No stenosis. External iliac artery: No stenosis. Common femoral artery: No stenosis. Left: Common iliac artery: No stenosis. Internal iliac artery: No stenosis. External iliac artery: No stenosis. Common femoral artery: No stenosis. NON-VASCULAR FINDINGS Lungs and large airways: Normal. Pleura: No pneumothorax or pleural effusion. Mediastinum and rm: Normal. Small focus of residual thymic tissue in anterior mediastinum. Liver: Normal size and attenuation. Borderline decreased attenuation consistent with steatosis. Bile ducts: Nondilated. Gallbladder: No calcified gallstones. Normal caliber wall. Pancreas: Normal attenuation without ductal dilatation. Spleen: Normal. Adrenals: Normal. Kidneys: Symmetric enhancement. No hydronephrosis. Urinary Bladder: Normal. Lymph Nodes: No enlarged lymph nodes. Bowel: Nondilated, no wall thickening. Normal appendix and terminal ileum. Peritoneum and retroperitoneum: No hemorrhage. No pneumoperitoneum. No fluid collection or mesenteric inflammation. Abdominal wall: Small fat-containing inguinal hernias, direct on the right and indirect on the left. Reproductive organs: Normal contours. Osseous structures: No suspicious lesions. Procedure Note Garrett Higgins MD - 01/16/2023 EXAMINATION: CT ANGIOGRAM CHEST ABDOMEN PELVIS W CONTRAST CLINICAL HISTORY: c/f aortic dissection Shoulder pain TECHNIQUE: Helical CT angiogram of the chest, abdomen and pelvis followingthe intravenous administration of 125.0 ml of OMNIPAQUE 350.00 mg/ml.Maximum intensity projection (MIP) were reformatted. 3-D images were generated dorota independent workstation. COMPARISON: None FINDINGS: VASCULAR FINDINGS Heart: Normal size. No pericardial effusion. Prominent aortic valvular calcifications. Thoracic aorta: Slightly ectatic ascending aorta, 4.1 cm. No acuteintramural hematoma, dissection flap or abnormal wall thickening. Arch branch vessel origins: Conventional three-vessel aortic arch withpatent vessel origins. Pulmonary arteries: No central filling defects. Abdominal aorta: No dissection, stenosis or aneurysm. Celiac: No stenosis. SMA: No stenosis. Right renal artery: No stenosis. Left renal artery: No stenosis. ALEXIS: No stenosis. Right: Common iliac artery: No stenosis. Internal iliac artery: No stenosis. External iliac artery: No stenosis. Common femoral artery: No stenosis. Left: Common iliac artery: No stenosis. Internal iliac artery: No stenosis. External iliac artery: No stenosis. Common femoral artery: No stenosis. NON-VASCULAR FINDINGS Lungs and large airways: Normal. Pleura: No pneumothorax or pleural effusion. Mediastinum and rm: Normal. Small focus of residual thymic tissue inanterior mediastinum. Liver: Normal size and attenuation. Borderline decreased attenuationconsistent with steatosis. Bile ducts: Nondilated. Gallbladder: No calcified gallstones. Normal caliber wall. Pancreas: Normal attenuation without ductal dilatation. Spleen: Normal. Adrenals: Normal. Kidneys: Symmetric enhancement. No hydronephrosis. Urinary Bladder: Normal. Lymph Nodes: No enlarged lymph nodes. Bowel: Nondilated, no wall thickening. Normal appendix and terminalileum. Peritoneum and retroperitoneum: No hemorrhage. No pneumoperitoneum. Nofluid collection or mesenteric inflammation. Abdominal wall: Small fat-containing inguinal hernias, direct on the rightand indirect on the left. Reproductive organs: Normal contours. Osseous structures: No suspicious lesions. IMPRESSION 1. No evidence of dissection or acute aortic syndrome. 2. Dense aortic valvular calcifications, greater than expected forpatient age. If there is no known history of bicuspid aortic valve, considertransthoracic echocardiogram. 3. Slightly ectatic ascending aorta, 4.1 cm. 4. Borderline hepatic steatosis. I have personally reviewed the image(s) and the resident's interpretationand agree with the findings, Garrett Higgins MD at 01/16/2023 9:23 AM Thank you for letting us participate in the care of this patient. If youare a health care provider and have any questions regarding this report,please contact the number below. For patients who have questions please contactthe health ambulatory care nurse that requested your imaging first. Apolonia Collins MD IMG CT ORDERABLES * Gold Tube HOLD (01/16/2023 7:50 AM EST) Gold Hold Sample in lab. [facility] Blood Venous Draw / Unknown 01/16/2023 7:50 AM EST 01/16/2023 8:02 AM EST Irina Claros [place] [address] * Blue Tube HOLD (01/16/2023 7:50 AM EST) Pathologist [facility] Blue Hold Sample in lab. [facility] Blood Venous Draw / Unknown 01/16/2023 7:50 AM EST 01/16/2023 8:01 AM EST Irina Claros [place] [address] * (ABNORMAL) Differential, Automated (01/16/2023 7:50 AM EST) [facility] Neutrophil % 76.8 % [facility] Neutrophil Absolute 7.04(H) 1.70 - 6.10 x10(3)/mc L [facility] Lymph % 15.2 % [facility] Lymphocytes Abs 1.4 0.9 - 3.2 x10(3)/mc L [facility] Monocyte % 5.6 % [facility] Monocyte Abs 0.5 0.3 - 0.9 x10(3)/mc L [facility] Eos % 1.6 % [facility] Eosinophils Abs 0.2 0.0 - 0.4 x10(3)/mc L [facility] Basophil % 0.5 % [facility] Baso Absolute 0.0 0.0 - 0.1 x10(3)/mc L [facility] Immature Gran % 0.30 % [facility] Comment: Immature granulocytes(IG's)percentage and absolute count will include metamyelocytes, myelocytes, and promyelocytes. Blood smears from CBCs yielding IG's will be scanned manually for concordance. If this scan disagrees with the automated IG or if promyelocytes are noted, a manual differential will be performed. Immature Gran Absolute 0.03 0.00 - 0.04 x10(3)/mc L [facility] Blood 01/16/2023 7:50 AM EST 01/16/2023 8:01 AM EST Narrative Resulting Agency Comment Spec In Lab Irina Claros MD HEMATOLOGY ORDERABLE S [facility] [address] * (ABNORMAL) Hemogram (01/16/2023 7:50 AM EST) White Blood Cell 9.2 4.0 - 9.5 x10(3)/mc L [facility] Red Blood Cell 6.37(H) 4.58 - 5.54 x10(6)/mc L [facility] Hemoglobin 19.3(H) 13.7 - 16.5 g/dL [facility] Hematocrit 54.5(H) 40.5 - 48.5 % [facility] Mean Cell Volume 85.6 82.9 - 93.1 fL [facility] Mean Cell Hemoglobin 30.3 27.5 - 32.1 pg [facility] Mean Cell Hemoglobin Concentration 35.4 32.0 - 35.7 g/dL [facility] Platelet 176 145 - 357 x10(3)/mc L [facility] RDW Standard Deviation 42.1 36.0 - 45.0 fL [facility] RDW coefficient of variation 13.7 11.4 - 13.8 % [facility] Mean Platelet Volume 10.9 7.6 - 12.9 fL [facility] NRBC% auto 0.0 % [facility] NRBC Absolute 0.000 0.000 - 0.000 x10(3)/mc L [facility] Blood 01/16/2023 7:50 AM EST 01/16/2023 8:01 AM EST Narrative Resulting Agency Comment Spec In Lab Irina Claros MD HEMATOLOGY ORDERABLE S [facility] [address] * (ABNORMAL) Comprehensive metabolic panel (non-fasting) (01/16/2023 7:50 AM EST) Glucose 125 65 - 199 mg/dL [facility] Comment:Diabetes: >=200 mg/d L plus symptoms Blood Urea Nitrogen 14 10 - 20 mg/dL [facility] Creatinine 0.81 0.80 - 1.50 mg/dL [facility] Sodium 137 135 - 145 mmol/L [facility] Potassium 4.2 3.5 - 5.0 mmol/L [facility] Comment: Please note: ??Patients with WBC >100,000 may have falsely elevated Potassium levels. ??For accurate Potassium quantification in these patients send serum separator tube (gold top) for subsequent determinations. ??Contact the Clinical Chemistry Laboratory if there are any questions. Chloride 100 98 - 107 mmol/L [facility] Carbon Dioxide 23 22 - 31 mmol/L [facility] Anion Gap 14 5 - 15 mmol/L [facility] Calcium 9.8 8.5 - 10.5 mg/dL [facility] Protein, Total 8.2(H) 6.1 - 8.0 g/dL [facility] Albumin 4.6 3.2 - 5.2 g/dL [facility] Aspartate Aminotransferase 21 0 - 39 unit/L [facility] Alanine Aminotransferase 20 0 - 55 unit/L [facility] Alkaline Phosphatase 82 40 - 130 unit/L [facility] Bilirubin, Total 0.4 0.2 - 1.3 mg/dL [facility] Est Glomerular Filtration Rate 114 >=60 mL/min/1. 73 m?? [facility] Comment: This patient's estimated GFR was calculated using the 2020 CKD-EPI equation. The estimated GFR can vary from the measured GFR by up to 30% in the absence of rapidly changing kidney function. Assessment of the estimated GFR is not appropriate when creatinine concentrations are rapidly changing. For clinical situations in which a more precise estimate of GFR is necessary, consider alternative methods of GFR estimation such as a 24-hour urine creatinine clearance. Assignment of CKD stage 1-5 for patients with an eGFR near the transition point between stages may be based on clinical assessment of muscle mass and symptoms in addition to eGFR. Blood 01/16/2023 7:50 AM EST 01/16/2023 8:01 AM EST Narrative Resulting Agency Comment Spec In Lab Apolonia Collins [place] [address] * Troponin (01/16/2023 7:50 AM EST) Troponin-T, High Sensitivity 16 <=22 ng/L [facility] Comment: This patient's troponin T concentration was determined using the Ortiz 5th Generation troponin T assay. The 99th percentile for Troponin T for this test is 14 ng/L for females, and 22 ng/L for males. According to the fourth universal definition of myocardial infarction, the term acute myocardial infarction should be used when there is acute myocardial injury with clinical evidence of acute myocardial ischemia and with detection of a rise and/or fall of cardiac troponin values with at least one value above the 99th percentile and at least one of the following: - Symptoms of myocardial ischemia; - New ischemic ECG changes; - Development of pathological Q waves; - Imaging evidence of new loss of viable myocardium or new regional wall motion abnormality in a pattern consistent with an ischemic etiology; - Identification of a coronary thrombus by angiography or autopsy (not for type 2 or 3 MIs) Serial measurement of troponin and the change in troponin concentration over time (delta) is crucial for the diagnosis of acute myocardial infarction. Guidance on the interpretation of the new 5th Generation Troponin T values and the delta troponin value can be found in the [facility] Test Catalog Troponin - [facility] Test Catalog Reference: [place] Definition of Myocardial Infarction. Journal of the [place] College of Cardiology 2018;72:5257-3091 Blood 01/16/2023 7:50 AM EST 01/16/2023 8:01 AM EST Narrative Resulting Agency Comment Spec In Lab Apolonia Collins [place] [address] * XR Chest One View (01/16/2023 7:24 AM EST) Anatomical Region Laterality Modality Chest N/A Digital Radiogra phy Impressions 01/16/2023 7:40 AM EST Pulmonary vascular prominence could be aberration of technique/positioning versus congestion. Preliminary report signed by: Adriana Kumar at 01/16/2023 7:34 AM I have personally reviewed the image(s) and the resident's interpretation and agree with the findings, Michael Baker MD at 01/16/2023 7:40 AM Thank you for letting us participate in the care of this patient. ??If you are a health care provider and have any questions regarding this report, please contact the number below. ??For patients who have questions please contact the health ambulatory care nurse that requested your imaging first. ? Electronically signed by: Michael Baker MD, [facility] ([phone]), at 01/16/2023 7:40 AM Narrative 01/16/2023 7:40 AM EST EXAMINATION: XR CHEST ONE VIEW CLINICAL HISTORY: left shoulder pain, HTN TECHNIQUE: 1 view of the chest portable semiupright rotated COMPARISON: None FINDINGS: Submaximal lung volumes accentuating the cardiomediastinal silhouette. Cardiomediastinal contours difficult to assess given patient rotation. Nonspecific pulmonary vascular prominence. No confluent airspace opacity, pleural effusion, or pneumothorax definitively identified. Procedure Note Michael Baker MD - 01/16/2023 EXAMINATION: XR CHEST ONE VIEW CLINICAL HISTORY: left shoulder pain, HTN TECHNIQUE: 1 view of the chest portable semiupright rotated COMPARISON: None FINDINGS: Submaximal lung volumes accentuating the cardiomediastinal silhouette. Cardiomediastinal contours difficult to assess given patient rotation. Nonspecific pulmonary vascular prominence. No confluent airspaceopacity, pleural effusion, or pneumothorax definitively identified. IMPRESSION Pulmonary vascular prominence could be aberration oftechnique/positioning versus congestion. Preliminary report signed by: Adriana Kumar at 01/16/2023 7:34 AM I have personally reviewed the image(s) and the resident's interpretationand agree with the findings, Michael Baker MD at 01/16/2023 7:40 AM Thank you for letting us participate in the care of this patient. If youare a health care provider and have any questions regarding this report,please contact the number below. For patients who have questions please contactthe health ambulatory care nurse that requested your imaging first. Electronically signed by: Michael Baker MD, [facility]([phone]), at 01/16/2023 7:40 AM Apolonia Collins MD IMG DX ORDERABLES documented in this encounter Visit Diagnoses Diagnosis Back pain, unspecified back location, unspecified back pain laterality, unspecified chronicity Hypertension, unspecified type documented in this encounter Administered Medications Inactive Administered Medications - up to 3 most recent administrations Medication Order MAR Action Action Date Dose Rate Site acetaminophen (Tylenol) tablet 975 mg 975 mg, Oral, ONCE, 1 dose, On Mon01/16/23 at 1414, Maximum dose of acetaminophen is 4,000 mg from all sources in 24 hours. When ordered for pain, acetaminophen should be given even when other ordered pain medications are indicated., Routine Given 01/16/2023 2:29 PM EST 975 mg diazePAM (Valium) tablet 5 mg 5 mg, Oral, ONCE, 1 dose, On Mon01/16/23 at 1038, STAT Given 01/16/2023 11:21 AM EST 5 mg HYDROmorphone (Dilaudid) (0.5 mg/0.5 mL) injection syringe 0.5 mg 0.5 mg, Intravenous, ONCE, 1 dose, On Mon01/16/23 at 0718, STAT Given 01/16/2023 7:49 AM EST 0.5 mg HYDROmorphone (Dilaudid) (0.5 mg/0.5 mL) injection syringe 0.5 mg 0.5 mg, Intravenous, ONCE, 1 dose, On Mon01/16/23 at 0849, STAT Given 01/16/2023 10:14 AM EST 0.5 mg ibuprofen (Advil) tablet 600 mg 600 mg, Oral, ONCE, 1 dose, On Mon01/16/23 at 1414, Administer orally with milk or food to minimize GI irritation, STAT Given 01/16/2023 2:29 PM EST 600 mg iohexoL (Omnipaque) (350 mg/mL) solution 0-200 mL 0-200 mL, Intravenous, ONCE PRN, 1 dose, Starting on Mon01/16/23 at 0820, Until Mon01/16/23 at 0820, Per Protocol, Warning Vesicant/Irritant Medication , Radiology Contrast, Routine Given 01/16/2023 8:20 AM EST 125 mLs lidocaine (Lidoderm) 5% patch 1 patch 1 patch, Transdermal, Administer over 12 Hours, EVERY 24 HOURS, First dose on Mon01/16/23 at 1304, Until Discontinued, Apply patch(es) for 12 hours, and then remove for 12 hours., Routine Patch Applied 01/16/2023 1:20 PM EST 1 patch 03- Shoulder (Left) ondansetron ODT (Zofran-ODT) disintegrating tablet 4 mg 4 mg, Oral, ONCE, 1 dose, On Mon01/16/23 at 1429, STAT Given 01/16/2023 2:29 PM EST 4 mg documented in this encounter Active and Recently Administered Medications Times are shown in EST. Scheduled Medication Order 01/14/2023 01/15/2023 01/16/2023 acetaminophen (Tylenol) tablet 975 mg (COMPLETED) 975 mg, Oral, ONCE, 1 dose, On Mon01/16/23 at 1414, Maximum dose of acetaminophen is 4,000 mg from all sources in 24 hours. When ordered for pain, acetaminophen should be given even when other ordered pain medications are indicated., Routine 1429 (Given - Provid er: Tu Mondragon RN) diazePAM (Valium) tablet 5 mg (COMPLETED) 5 mg, Oral, ONCE, 1 dose, On Mon01/16/23 at 1038, STAT 1121 (Given - Provid er: Tu Mondragon RN) HYDROmorphone (Dilaudid) (0.5 mg/0.5 mL) injection syringe 0.5 mg (COMPLETED) 0.5 mg, Intravenous, ONCE, 1 dose, On Mon01/16/23 at 0718, STAT 0749 (Given - Provid er: Tu Mondragon RN) HYDROmorphone (Dilaudid) (0.5 mg/0.5 mL) injection syringe 0.5 mg (COMPLETED) 0.5 mg, Intravenous, ONCE, 1 dose, On Mon01/16/23 at 0849, STAT 1014 (Given - Provid er: Tu Mondragon RN - Comment: Pt care) ibuprofen (Advil) tablet 600 mg (COMPLETED) 600 mg, Oral, ONCE, 1 dose, On Mon01/16/23 at 1414, Administer orally with milk or food to minimize GI irritation, STAT 1429 (Given - Provid er: Tu Mondragon RN) lidocaine (Lidoderm) 5% patch 1 patch 1 patch, Transdermal, Administer over 12 Hours, EVERY 24 HOURS, First dose on Mon01/16/23 at 1304, Until Discontinued, Apply patch(es) for 12 hours, and then remove for 12 hours., Routine 1320 (Patch Applied - Provider: Lisset Molina RN)1555 (Due: Patch Removed - Provider: Automatic Discharge Provider - Comment: Time automatically adjusted from order being discontinued) ondansetron ODT (Zofran-ODT) disintegrating tablet 4 mg (COMPLETED) 4 mg, Oral, ONCE, 1 dose, On Mon01/16/23 at 1429, STAT 1429 (Given - Provid er: Tu Mondragon RN) PRN Medication Order 01/14/2023 01/15/2023 01/16/2023 iohexoL (Omnipaque) (350 mg/mL) solution 0-200 mL (COMPLETED) 0-200 mL, Intravenous, ONCE PRN, 1 dose, Starting on Mon01/16/23 at 0820, Until Mon01/16/23 at 0820, Per Protocol, Warning Vesicant/Irritant Medication , Radiology Contrast, Routine 0820 (Given - Provid er: Naun Edward Jr.) documented in this encounter Care Teams Director Of Advertising Sales Relationship Specialty Start Date End Date Violet Martinez MD [facility] [address] [place] [address] PCP - General 01/26/10 documented as of this encounter
--- OUTSIDE RECORDS SUMMARY | 2024-01-09 16:12 | XMS_ITS | Encounter Summary ---
Author Organization [facility] [place] [address] Care Team Providers Care Hog Driver Name Role Phone Violet Martinez MD Primary Care Provider [phone] Encounter Details Date Type Department Care Team (Late st Contact Info) Description 03/22/2023 Interpretation Only [address] [id number] Kenneth Wild Jr., MD [address] [place] [address] Social History Tobacco Use Types Packs/Day Years Used Date Smoking Tobacco: Every Day Cigarettes Passive Smoke Exposure: Never Comments:Pt refused cessatio n guidance. IPV Inpatient Questions Answer Date Recorded Does Anyone Try to Keep You From Having Contact with Others or Doing Things Outside Your Home? no 01/28/2023 Feels Threatened by Someone no 01/05 Feels Unsafe at Home or Work/School no 01/28/2023 Physical Signs of Abuse Present no 01/28/2023 Sex and Gender Information Value Date Recorded Sex Assigned at Not on file Gender Identity Not on file Sexual Orientation Not on file documented as of this encounter Plan of Treatment Not on file documented as of this encounter Procedures Procedure Name Priority Date/Time Associated Diagnosis Comments XR SHOULDER LEFT STAT 03/22/2023 2:01 PM EST documented in this encounter Results * XR Shoulder Left (Generic) (03/22/2023 2:01 PM EST) PT CLASS E DH RAD ADMITDTTM [id number] DH RAD PT RAD INFO [id number]^Wild^G erald^J DH RAD EXAM DESC XRSHDL^XR Shoulder Complete 2+ Views Left^RIS DH RAD Anatomical Region Laterality Modality Shoulder Left Radiographic Madalyn ging 03/22/2023 2:01 PM EST Impressions 03/22/2023 2:09 PM EST No acute fracture or dislocation. Normal glenohumeral alignment. There is slight widening of the AC joint space, which may be seen with AC joint separation, correlate with focal pain. Thank you for letting us participate in the care of this patient. ??If you are a health care provider and have any questions regarding this report, please contact the number below. ??For patients who have questions please contact the health care director that requested your imaging first. ? Narrative 03/22/2023 2:09 PM EST EXAMINATION: XR Shoulder Complete 2+ Views Left CLINICAL HISTORY: pain TECHNIQUE: 4 views of the left shoulder COMPARISON: None FINDINGS: See impression. Procedure Note Jonah Baig MD - 03/22/2023 EXAMINATION: XR Shoulder Complete 2+ Views Left CLINICAL HISTORY: pain TECHNIQUE: 4 views of the left shoulder COMPARISON: None FINDINGS: See impression. IMPRESSION No acute fracture or dislocation. Normal glenohumeral alignment. There isslight widening of the AC joint space, which may be seen with AC jointseparation, correlate with focal pain. Thank you for letting us participate in the care of this patient. If youare a health care provider and have any questions regarding this report,please contact the number below. For patients who have questions please contactthe health care director that requested your imaging first. Electronically signed by: [facility]([phone]), at 03/22/2023 2:09 PM Kenneth Wild Jr., MD IMG DX ORDERABLES documented in this encounter Visit Diagnoses Not on filedocumented in this encounter Care Teams Hog Driver Relationship Specialty Start Date End Date Violet Martinez MD [address] [place] [address] [facility] [address] [place] [address] PCP - General 01/26/10 documented as of this encounter
--- OUTSIDE RECORDS SUMMARY | 2024-01-09 16:12 | XMS_ITS | Encounter Summary ---
Author Organization [facility] Address [facility] [place] [address] Care Team Providers Care Wire Drawing Machine Operator Name Role Phone Violet Martinez MD Primary Care Provider [phone] Reason for Visit * Reason Comments Shoulder Pain Encounter Details Date Type Department Care Team (Late st Contact Info) Description 01/28/2023 5:35 AM EST - 01/28/2023 8:41 AM EST Emergency Emergency Department [facility] [place] [id number] Maida Haddad MD [facility] [place] [address] Left shoulder pain, unspecified chronicity Discharge Disposition: Home Social History Tobacco Use Types Packs/Day Years Used Date Smoking Tobacco: Every Day Cigarettes Passive Smoke Exposure: Never Tobacco Cessation:Ready to Q uit: No; Counseling Given: No Comments:Pt refused cessation guidance. IPV Inpatient Questions Answer Date Recorded [...] Sign Reading Time Taken Comments Blood Pressure 146/84 01/28/2023 8:34 AM EST Pulse 74 01/28/2023 8:34 AM EST Temperature 36.5 ??C (97.7 ??F) 01/28/2023 5:47 AM ES T Respiratory Rate 16 01/28/2023 8:34 AM EST Oxygen Saturation 99% 01/28/2023 8:34 AM EST Inhaled Oxygen Concentration - - Weight - - Height - - Body Mass Index - - documented in this encounter Discharge Instructions * Discharge Instructions* Joseph King MD - 01/28/2023 8:21 AM EST You were seen in the emergency department today for left shoulder pain. Your history and physical exam were reassuring against presence of acute infected shoulder joint, acute cardiac or pulmonary process, and acute vascular process. It is likely your symptoms are secondary to a musculoskeletal injury. Your pain was treated with acetaminophen, ibuprofen, and oxycodone during her emergency department stay. Please follow-up closely with your primary care provider for further work-up for your leftshoulder pain. Please return to the emergency department if you develop worsening of your current symptoms or new symptoms that are concerning to you. * Attachments The following attachments cannot be sent through Care Everywhere. * Shoulder Pain ([place]) documented in this encounter ED Notes * Nika Oquendo NRP - 01/28/2023 8:34 AM EST Patient is alert and oriented, VSS. RN reviewed discharge paperwork with patient. Questions answered and patient expresses no further concerns, and pt ambulated out of ER without difficulty. * Maida Haddad MD - 01/28/2023 6:45 AM EST ED Resident Note HPI: Jhony Lester is a 42 y.o. male who presents to the Emergency Department with 2-3 months of severeleft shoulder pain. This pain is located starting in his left trapezius and radiates down the back of his left scapula and around the shoulder to the bicep. He has had no fevers, chills, chest pain, palpitations, nausea, vomiting, shortness of breath. He reports no history of injection drug use. Noother affected joints. He reports that his shoulder pain feels better with movement of the left shoulder. Denies any significant past medical history. Reports being established with a primary care provider and has had work-up in the outpatient setting, though unclear what this work-up is entailed. He reports no discrete mechanism of injury. ROS as per HPI Vitals: ED Triage Vitals [01/28/23 0547] BP: (!) 174/97 Heart Rate: 74 Resp: 16 Temp: 36.5 ??C (97.7 ??F) Temp src: Oral SpO2: 99 % O2 Device: RA O2 Flow Rate (L/min): n/a Physical Exam Constitutional: General: He is not in acute distress. Comments: Reclined in bed, intermittently moving left shoulder in circular motion Neck: Comments: No midline cervical or thoracic spine tenderness, no palpable step- offs or deformities, paraspinal muscle tenderness with palpation of upper thoracic spine on the left Cardiovascular: Rate and Rhythm: Normal rate. Pulses: Normal pulses. Comments: 2+ radial pulses bilaterally Pulmonary: Effort: Pulmonary effort is normal. No respiratory distress. Musculoskeletal: Comments: Full range of motion with flexion, extension, abduction, and abduction of left shoulder. Pain with palpation of trapezius muscle. 4/5 strength with abduction of left shoulder to resistance.No pain with palpation of deep venous system of left upper extremity. Intact strength with flexion and extension of bilateral upper extremities at the elbows, 5/5 cylinder head assembler strength bilaterally, 5/5 finger abduction bilaterally. Able to make okay sign, cross pointer over middle finger of left hand. No appreciable swelling of left upper extremity when compared to the right Neurological: Mental Status: He is alert. Comments: No gross or focal neurologic deficits, sensation to light touch intact over entirety of right upper extremity. ED Course: ED Course as of 01/28/23 0927 Sat Jan 28, 2023 0608 NDP > NGC: L shoulder pain seen yesterday. 0646 42-year-old male presenting with 2-3 months of severe left shoulder pain starting in his left trapezius and rating down the back of his left scapula and around the shoulder to the bicep. No fevers, chills, chest pain, palpitations, nausea, vomiting, shortness of breath. No history of injectiondrug use. No other affected joints. Denies any significant past medical history. Reports being established with a primary care provider and has had work-up in the outpatient setting. No discrete mechanism of injury. Neurovascularly intact on physical exam with 2+ palpable radial pulses, no significant arm swelling or deformity, and full range of motion of left shoulder with pain with abduction ofleft shoulder. 0721 I reviewed patient's EKG. EKG shows normal sinus rhythm with rate of 75, normal HI and QT intervals, normal axis, no ST segment elevations or depressions, normal T wave morphology. No findings concerning for acute ischemia or pericarditis. Medications acetaminophen (Tylenol) tablet 975 mg (975 mg Oral Given 01/28/23652) ibuprofen (Advil) tablet 800 mg (800 mg Oral Given 01/28/23652) oxyCODONE (Roxicodone) tablet 5 mg (5 mg Oral Given 01/28/23652) oxyCODONE (Roxicodone) tablet 5 mg (5 mg Oral Given 01/28/23 0820) Assessment and Plan: 42 y.o. male with 2-3 months of left shoulder pain alleviated with movement. Differential diagnosisincluded musculoskeletal injury, brachial plexopathy, cervical radiculopathy, septic shoulder joint, DVT/thoracic outlet syndrome, gouty arthritis, osteoarthritis. Absence of fever or IV drug use andalleviation of symptoms with movement of left upper extremity make septic shoulder, gouty arthritis, and osteoarthritis less likely. Additionally, normal white blood cell count on labs yesterday, 01/27, within normal limits, reassuring against acute infectious process. No neurologic deficits to suggest cervical radiculopathy or brachial plexopathy on exam. EKG interpreted by me without findings concerning for acute ischemia. X-ray of left shoulder performed yesterday, 01/27 without evidence of acute fracture or dislocation. No interval events between emergency department visit yesterday and today concerning for new, acute injury and therefore repeat x-ray was not performed. No repetitive movements reported by patient to suggest tendinitis, though unable to make this diagnosis in the emergency department. He was given acetaminophen, ibuprofen, and oxycodone for treatment of his symptoms,after which he reported improvement in his pain. Shared decision was made for him to be discharged home with close follow-up with his primary care provider for further evaluation and management of his left shoulder pain, potentially with outpatient MRI to evaluate for musculoskeletal injury. The diagnosis and care plans discussions were outlined in the discharge instructions. The patient expressed understanding of the details of the visit, the return precautions and that he should returnto the ER at any time for worsening symptoms, new symptoms, or other concerns. he agrees with the follow- up plan. Joseph King MD Resident 01/28/23 0994 ED ATTENDING ATTESTATION NOTE The patient was seen in conjunction with the resident physician. I have independently performed thekey portions of the history and physical exam. I have reviewed the diagnostic studies including labs, imaging studies and EKGs. I have discussed the details of the case with the resident and agree with the assessment and plan as described in the resident note unless noted below or in my separate note. Brief Summary: 42 y.o. male with shoulder pain after lifting heavy object yesterday. Neurovascularly intact. Clinically not dislocated. Imaging reviewed by me negative for fracture or dislocation. Agree with above. Maida Haddad MD 01/28/23 1029 documented in this encounter Miscellaneous Notes * ED Triage - Roberth Shukla RN - 01/28/2023 5:57 AM EST Pt denies fall or trauma after discharge from ED. HPI (Adult) Stated Reason for Visit: Pt recently discharged from ED for same c/o L shoulder pain. Reports pain is worse after D/C, describes as stabbing in L shoulder blade, and numbness/tingling down affected extremity. Denies CP. History Obtained From: patient Precipitating Event(s): none Onset of Symptoms: worsening documented in this encounter Plan of Treatment Not on file documented as of this encounter Procedures Procedure Name Priority Date/Time Associated Diagnosis Comments EKG 12-LEAD STAT 01/28/2023 6:09 AM EST documented in this encounter Results * EKG 12 Lead (01/28/2023 6:09 AM EST) Ventricular rate 81 BPM MUSE SYSTEM Atrial Rate 81 BPM MUSE SYSTEM P-R Interval 156 ms MUSE SYSTEM QRS Duration 100 ms MUSE SYSTEM Q-T Interval 364 ms MUSE SYSTEM QTC Calculated (Bezet) 422 ms MUSE SYSTEM Calculated P [place] 42 degrees MUSE SYSTEM Calculated R [place] 18 degrees MUSE SYSTEM Calculated T [place] 14 degrees MUSE SYSTEM INTERPRETATION Normal sinus rhythm Normal ECG When compared with ECG of 16-JAN-2023 08:22, No significant change was found Confirmed by MD Ghotra Daniel ([id number]) on 01/29/2023 3:01:36 PM MUSE SYSTEM 01/28/2023 6:09 AM EST 01/29/2023 3:01 PM EST Maida Haddad MD ECG ORDERABLES MUSE SYSTEM documented in this encounter Visit Diagnoses Diagnosis Left shoulder pain, unspecified chronicity documented in this encounter Administered Medications Inactive Administered Medications - up to 3 most recent administrations Medication Order MAR Action Action Date Dose Rate Site acetaminophen (Tylenol) tablet 975 mg 975 mg (rounded from 1,000 mg), Oral, ONCE, 1 dose, On 01/28/23 at 0647, Maximum dose of acetaminophen is 4,000 mg from all sources in 24 hours. When ordered for pain, acetaminophen should be given even when other ordered pain medications are indicated., STAT Given 01/28/2023 6:53 AM EST 975 mg ibuprofen (Advil) tablet 800 mg 800 mg, Oral, ONCE, 1 dose, On 01/28/23 at 0647, Administer orally with milk or food to minimize GI irritation, STAT Given 01/28/2023 6:53 AM EST 800 mg oxyCODONE (Roxicodone) tablet 5 mg 5 mg, Oral, ONCE, 1 dose, On 01/28/23 at 0647, STAT Given 01/28/2023 6:53 AM EST 5 mg oxyCODONE (Roxicodone) tablet 5 mg 5 mg, Oral, ONCE, 1 dose, On 01/28/23 at 0818, STAT Given 01/28/2023 8:20 AM EST 5 mg documented in this encounter Active and Recently Administered Medications Times are shown in EST. Scheduled Medication Order 01/26/2023 01/27/2023 01/28/2023 acetaminophen (Tylenol) tablet 975 mg (COMPLETED) 975 mg (rounded from 1,000 mg), Oral, ONCE, 1 dose, On 01/28/23 at 0647, Maximum dose of acetaminophen is 4,000 mg from all sources in 24 hours. When ordered for pain, acetaminophen should be given even when other ordered pain medications are indicated., STAT 0653 (Given - Provid er: Roberth Shukla RN) ibuprofen (Advil) tablet 800 mg (COMPLETED) 800 mg, Oral, ONCE, 1 dose, On 01/28/23 at 0647, Administer orally with milk or food to minimize GI irritation, STAT 0653 (Given - Provid er: Roberth Shukla RN) oxyCODONE (Roxicodone) tablet 5 mg (COMPLETED) 5 mg, Oral, ONCE, 1 dose, On 01/28/23 at 0647, STAT 0653 (Given - Provid er: Roberth Shukla RN) oxyCODONE (Roxicodone) tablet 5 mg (COMPLETED) 5 mg, Oral, ONCE, 1 dose, On 01/28/23 at 0818, STAT 0820 (Given - Provid er: Nika Oquendo NRP) documented in this encounter Care Teams Wire Drawing Machine Operator Relationship Specialty Start Date End Date Violet Martinez MD [address] [place] [address] PCP - General 01/26/10 documented as of this encounter
--- OUTSIDE RECORDS SUMMARY | 2024-01-09 16:12 | XMS_ITS | Encounter Summary ---
Author Organization [facility] Address [facility] [place] [address] Care Team Providers Care Logging Superintendent Name Role Phone Violet Martinez MD Primary Care Provider [phone] Encounter Details Date Type Department Care Team (Latest Contact Info) Description 01/28/2023 Travel Social History Tobacco Use Types Packs/Day Years [...] on file documented as of this encounter Visit Diagnoses Not on filedocumented in this encounter Care Teams Logging Superintendent Relationship Specialty Start Date End Date Violet Martinez MD [address] [place] [address] PCP - General 01/26/10 documented as of this encounter
--- OUTSIDE RECORDS SUMMARY | 2024-01-09 16:12 | XMS_ITS | Encounter Summary ---
Author Organization [facility] Address [facility] [place] [address] Care Team Providers Care Animal Killer Name Role Phone Violet Martinez MD Primary Care Provider [phone] Reason for Referral * Consultation (Routine) - Closed Specialty Diagnoses / Procedures Referred By Contlorena t Referred To Contact Orthopaedics Diagnoses Left shoulder pain, unspecified chronicity Joseph Khan MD [facility] [place] [address] [facility] [address] [place] [address] Referral ID Status Reason Start Date Expiration Date V isits Requested Visits Authorized [id number] Closed Consult, Test & Treat 01/27/2023 01/27/2024 1 1 Reason for Visit * Reason Comments Shoulder Pain LEFT Encounter Details Date Type Department Care Team (Late st Contact Info) Description 01/27/2023 9:07 PM EST - 01/28/2023 1:00 AM [place] [phone] Joseph Baker DO [facility] [place] [address] Left shoulder pain, unspecified chronicity Discharge Disposition: Home Social History Tobacco Use Types Packs/Day Years Used Date Smoking Tobacco: Every Day Cigarettes Passive Smoke Exposure: Never Comments:Pt refused cessatio n guidance. [facility] Inpatient Questions Answer Date Recorded Does Anyone [...] Sign Reading Time Taken Comments Blood Pressure 157/107 01/28/2023 12:01 AM EST Pulse 73 01/28/2023 12:01 AM EST Temperature 36.6 ??C (97.9 ??F) 01/27/2023 7:41 PM ES T Respiratory Rate 20 01/28/2023 12:01 AM EST Oxygen Saturation 100% 01/28/2023 12:01 AM EST Inhaled Oxygen Concentration - - Weight 140.6 kg (310 lb) 01/27/2023 7:41 PM EST Height - - Body Mass Index 44.48 01/16/2023 6:55 AM EST documented in this encounter Discharge Instructions * Discharge Instructions* Joseph Khan MD - 01/28/2023 12:38 AM EST While you were here in the emergency department for shoulder pain, we performed x-rays which did not show sign of fracture but are concerning for rotator cuff injury. You have been given referral to orthopedic surgery to follow-up on this. I have also given you instructions for exercises to help with your potential rotator cuff injury. You should take ibuprofen, acetaminophen, lidocaine patches as needed for pain control. Return to the emergency room or seek care meetly should you lose feeling in your arm, have cold arms, inability to move your arm, chest pain, shortness of breath, or any other symptoms that concern you. * Attachments The following attachments cannot be sent through Care Everywhere. * Rotator Cuff: Exercises (Syrian) documented in this encounter ED Notes * Yaritza Vargas RN - 01/28/2023 1:02 AM EST Patient is alert and oriented, VSS. RN reviewed discharge paperwork with patient. Questions answered and patient expresses no further concerns. IV removed and pt ambulated out of ER without difficulty. * Joseph Khan MD - 01/27/2023 10:06 PM EST ED Resident Note HPI: Jhony Lester is a 42 y.o. male with a history of gout, hypertension presenting with left-sided shoulder pain for the second time in 11 days. Denies any traumatic events to his left shoulder. Has a history of this both 11 days ago and approximately 3 years ago, also atraumatic at that time. He hasbeen taking ibuprofen, acetaminophen, Flexeril without relief of his discomfort. He endorses pain that radiates from the anterior shoulder wrapping around to the posterior shoulder with movement through any range of motion. Patient states after discharge, he was trying to manage his pain at home but over the last few days it is gotten worse to the point that he cannot handle it at home anymore. Gagandeep hawkins denies any fevers, chills, nausea, vomiting. Patient denies any erythema, swelling of the area. He denies any injection into the area. ROS as per HPI Vitals: ED Triage Vitals BP: (!) 155/94 [01/27/231941] Heart Rate: 78 [01/27/231940] Resp: 16 [01/27/231940] Temp: 36.6 ??C (97.9 ??F) [01/27/231940] Temp src: Temporal [01/27/231940] SpO2: 99 % [01/27/231940] O2 Device: RA [01/27/231940] O2 Flow Rate (L/min): n/a Physical Exam Constitutional: Appearance: He is not toxic-appearing. HENT: Mouth/Throat: Mouth: Mucous membranes are moist. Pharynx: Oropharynx is clear. Comments: Poor dentition Neurological: Mental Status: He is alert. ED Course: I have reviewed labs and imaging, images and available reports, and they are significant for: ED Course as of 01/27/232205Jan 27, [id number] 42-year-old gentleman presenting with left-sided shoulder pain for the second time in 11 days.Denies any traumatic events to his left shoulder. Has a history of this both 11 days ago and approximately 3 years ago, also atraumatic at that time. He has been taking ibuprofen, acetaminophen, Flexeril without relief of his discomfort. He endorses pain that radiates from the anterior shoulder wrapping around to the posterior shoulder with movement through any range of motion. Patient states after discharge, he was trying to manage his pain at home but over the last few days it is gotten worseto the point that he cannot handle it at home anymore. Patient denies any fevers, chills, nausea, vo miting. Patient denies any erythema, swelling of the area. He denies any injection into the area. XR Shoulder Left (Generic) Preliminary Result Incomplete shoulder series. No acute fracture or dislocation of the left shoulder. Preliminary report signed by: Lucia Tay at 01/27/2023 9:51 PM On my independent assessment of the patient's x-ray, no evidence of sclerotic disease, acute fracture, dislocation. Procedures Assessment and Plan: 42 y.o. male with a history of gout, hypertension presenting with left-sided shoulder pain for the second time in 11 days. Patient shoulder x-ray without evidence of sclerosis or fracture. His humerus does appear to be high riding in his socket which seems consistent with a rotator cuff injury. He does not have any overlying cellulitis, erythema that would make me concerned for infectious process or septic shoulder. Also given that if this has been ongoing for nearly 2 weeks I think that is also very unlikely. Unclear etiology of his inflammatory markers, but I do not think that he has a infection in his arm. 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 Patient was treated with Toradol, Tylenol, lidocaine patches, referral given to orthopedics, plan for discharge and outpatient follow-up. Return precautions discussed. The visit findings, diagnosis, and care plan were discussed with the patient. The diagnosis and care plans discussions were outlined in the discharge instructions. The patient expressed understanding of the details of the visit, the return precautions and that he should returnto the ER at any time for worsening symptoms, new symptoms, or other concerns. he agrees with the follow- up plan. Joseph Khan MD Resident 01/28/23 0544 Associated attestation - Joseph Baker DO - 01/28/2023 4:34 PM EST ED ATTENDING ATTESTATION The patient was seen in conjunction with the resident physician. I have independently performed thekey portions of the history and physical exam. I have personally reviewed nursing notes, vital signs, and diagnostic studies including labs, imaging studies and EKGs. I have discussed the details of the case with the resident and agree with the assessment and plan as described in the resident's note, unless stated otherwise in my separate note. 42 yo male with h/o gout, presents for left shoulder pain x 2 weeks. States he has full ROM, but sometimes overhead positions hurt, also reports increased pain at night preventing sleep. Denies fevers, no numbness. EXAM Tender over anterolateral shoulder and supraspinatus. Radial pulse 2+, radial/median/ulnar/ain/pin intact distally. Empty can test with pain but no weakness. Internal rotation causes pain. Speed and yergason negative. XR without chondrocalcinosis, no fracture. Humerus appears mildly high-riding, and given his exam and worsening pain at night, suspect possible rotator cuff tendinitis. Feel septic joint unlikely given the 2 week duration and full active and passive ROM. Discussed this with patient, discussed apap/motrin, ROM exercises. Will refer to ortho Did this case involve critical care? No documented in this encounter Plan of Treatment Scheduled Referrals Name Type Priority Associated Diagnoses Orde r Schedule Referral to Orthopaedics Outpatient Referral Routine Left shoulder pain, unspecified chronicity Ordered: 01/27/2023 documented as of this encounter Procedures Procedure Name Priority Date/Time Associated Diagnosis Comments CRP, ACUTE INFLAMMATION STAT 01/27/2023 10:26 PM EST HEMOGRAM STAT 01/27/2023 10:26 PM EST DIFFERENTIAL, AUTOMATED STAT 01/27/2023 10:26 PM EST SEDIMENTATION RATE STAT 01/27/2023 10 :26 PM EST CBC (WITH DIFF) STAT 01/27/2023 10:26 PM EST ACETAMINOPHEN LEVEL STAT 01/27/2023 1 0:26 PM EST BASIC METABOLIC PANEL STAT 01/27/2023 10:26 PM EST XR SHOULDER LEFT STAT 01/27/2023 9:34 PM EST documented in this encounter Results * Differential, Automated (01/27/2023 10:26 PM EST) Neutrophil % 61.2 % [facility] Neutrophil Absolute 5.35 1.70 - 6.10 x10(3[facility] Lymph % 29.8 % [facility] Lymphocytes Abs 2.6 0.9 - 3.2 x10(3[facility] Monocyte % 6.2 % [facility] Monocyte Abs 0.5 0.3 - 0.9 x10(3[facility] Eos % 1.9 % [facility] Eosinophils Abs 0.2 0.0 - 0.4 x10(3)/[facility] Basophil % 0.7 % [facility] Baso Absolute 0.1 0.0 - 0.1 x10(3[facility] Immature Gran % 0.20 % [facility] Comment: Immature granulocytes(IG's)percentage and absolute count will include metamyelocytes, myelocytes, and promyelocytes. Blood smears from CBCs yielding IG's will be scanned manually for concordance. If this scan disagrees with the automated IG or if promyelocytes are noted, a manual differential will be performed. Immature Gran Absolute 0.02 0.00 - 0.04 x10(3[facility] Blood 01/27/2023 10:2 6 PM EST 01/27/2023 10:32 PM EST Narrative Resulting Agency Comment Spec In Lab Joseph Khan MD HEMATOLOGY ORDERABLE S [facility] [place] [address] * (ABNORMAL) Hemogram (01/27/2023 10:26 PM EST) White Blood Cell 8.8 4.0 - 9.5 x10(3)/mc L [facility] Red Blood Cell 6.10(H) 4.58 - 5.54 x10(6)/mc L [facility] Hemoglobin 18.8(H) 13.7 - 16.5 g/dL [facility] Hematocrit 53.1(H) 40.5 - 48.5 % [facility] Mean Cell Volume 87.0 82.9 - 93.1 fL [facility] Mean Cell Hemoglobin 30.8 27.5 - 32.1 pg [facility] Mean Cell Hemoglobin Concentration 35.4 32.0 - 35.7 g/dL [facility] Platelet 180 145 - 357 x10(3)/mc L [facility] RDW Standard Deviation 42.8 36.0 - 45.0 fL [facility] RDW coefficient of variation 13.4 11.4 - 13.8 % [facility] Mean Platelet Volume 10.7 7.6 - 12.9 fL [facility] NRBC% auto 0.0 % [facility] NRBC Absolute 0.000 0.000 - 0.000 x10(3)/mc L [facility] Blood 01/27/2023 10:2 6 PM EST 01/27/2023 10:32 PM EST Narrative Resulting Agency Comment Spec In Lab Joseph Khan MD HEMATOLOGY ORDERABLE S [facility] [place] [address] * (ABNORMAL) Acetaminophen level (01/27/2023 10:26 PM EST) Acetamin Lvl <5(L) 5 - 30 mg/L [facility] Comment: result rechecked-KS Levels >150 mg/L at 4 hours post ingestion are often an indication for N-Acetylcysteine. Blood 01/27/2023 10:2 6 PM EST 01/27/2023 10:32 PM EST Narrative Resulting Agency Comment Spec In Lab Margarita Campos MD CHEMISTRY ORDERABLE S Performing Organization Address [facility] Co de Phone Number [facility] [place] [address] * (ABNORMAL) CRP, acute inflammation (01/27/2023 10:26 PM EST) C-Reactive Protein 8.7(H) <=4.9 mg/L [facility] Blood 01/27/2023 10:2 6 PM EST 01/27/2023 10:32 PM EST Narrative Resulting Agency Comment Spec In Lab Margarita Campos MD CHEMISTRY ORDERABLE S Performing Organization Address [facility] de Phone Number [facility] [place] [address] * (ABNORMAL) Sedimentation rate (01/27/2023 10:26 PM EST) Sedimentation Rate Automated 54(H) 2 - 28 mm/hr [facility] Comment: Effective February 13, 2019 new capillary photometric technology has resulted in a change in reference ranges. It is recommended that each ESR result be reviewed with its own age appropriate reference range. Blood 01/27/2023 10:2 6 PM EST 01/27/2023 10:32 PM EST Narrative Resulting Agency Comment Spec In Lab Margarita Campos MD HEMATOLOGY ORDERABL ES Performing Organization Address [facility] Co de Phone Number [facility] [place] [address] * Basic Metabolic Panel (non-fasting) (01/27/2023 10:26 PM EST) Glucose 101 65 - 199 mg/dL [facility] Comment:Diabetes: >=200 mg/d L plus symptoms Blood Urea Nitrogen 18 10 - 20 mg/dL [facility] Creatinine 0.87 0.80 - 1.50 mg/dL [facility] Sodium 138 135 - 145 mmol/L [facility] Potassium 3.9 3.5 - 5.0 mmol/L [facility] Comment: Please note: ??Patients with WBC >100,000 may have falsely elevated Potassium levels. ??For accurate Potassium quantification in these patients send serum separator tube (gold top) for subsequent determinations. ??Contact the Clinical Chemistry Laboratory if there are any questions. Chloride 100 98 - 107 mmol/L [facility] Carbon Dioxide 23 22 - 31 mmol/L [facility] Anion Gap 15 5 - 15 mmol/L [facility] Calcium 9.9 8.5 - 10.5 mg/dL [facility] Est Glomerular Filtration Rate 111 >=60 mL/min/1. 73 m?? [facility] Comment: This patient's estimated GFR was [...] and symptoms in addition to eGFR. Blood 01/27/2023 10:2 6 PM EST 01/27/2023 10:32 PM EST Narrative Resulting Agency Comment Spec In Lab Margarita Campos MD CHEMISTRY ORDERABLE S [facility] [place] [address] * XR Shoulder Left (Generic) (01/27/2023 9:34 PM EST) Anatomical Region Laterality Modality Shoulder Left Digital Radiogra phy Impressions 01/27/2023 10:30 PM EST No acute fracture or dislocation of the left shoulder. Preliminary report signed by: Lucia Tay at 01/27/2023 9:51 PM I have personally reviewed the image(s) and the resident's interpretation and agree with the findings, Clayton Boss MD at 01/27/2023 10:30 PM Thank you for letting us participate in the care of this patient. ??If you are a health care provider and have any questions regarding this report, please contact the number below. ??For patients who have questions please contact the health healthcare facility administrator that requested your imaging first. ? Electronically signed by: Clayton Boss MD, [facility] ([phone]), at 01/27/2023 10:30 PM Narrative 01/27/2023 10:30 PM EST EXAMINATION: XR SHOULDER LEFT (GENERIC) CLINICAL HISTORY: pain TECHNIQUE: 3 views LEFT shoulder COMPARISON: None FINDINGS: No acute fracture, periostitis, or erosion. Normal articulation of the humeral head in the glenoid. Normal intervals. No soft tissue calcification. Visualized portions of the left hemithorax are within normal limits, specifically no pneumothorax or displaced rib fracture. Procedure Note Clayton Boss MD - 01/27/2023 EXAMINATION: XR SHOULDER LEFT (GENERIC) CLINICAL HISTORY: pain TECHNIQUE: 3 views LEFT shoulder COMPARISON: None FINDINGS: No acute fracture, periostitis, or erosion. Normal articulation of thehumeral head in the glenoid. Normal intervals. No soft tissue calcification.Visualized portions of the left hemithorax are within normal limits, specificallyno pneumothorax or displaced rib fracture. IMPRESSION No acute fracture or dislocation of the left shoulder. Preliminary report signed by: Lucia Tay at 01/27/2023 9:51PM I have personally reviewed the image(s) and the resident's interpretationand agree with the findings, Clayton Boss MD at 01/27/2023 10:30 PM Thank you for letting us participate in the care of this patient. If youare a health care provider and have any questions regarding this report,please contact the number below. For patients who have questions please contactthe health healthcare facility administrator that requested your imaging first. Naun Bradley MD IMG DX ORDERABLES documented in this encounter Visit Diagnoses Diagnosis Left shoulder pain, unspecified chronicity documented in this encounter Administered Medications Inactive Administered Medications - up to 3 most recent administrations Medication Order MAR Action Action Date Dose Rate Site acetaminophen (Tylenol) tablet 975 mg 975 mg (rounded from 1,000 mg), Oral, ONCE, 1 dose, On Mon01/27/23 at 2213, Maximum dose of acetaminophen is 4,000 mg from all sources in 24 hours. When ordered for pain, acetaminophen should be given even when other ordered pain medications are indicated., STAT Given 01/27/2023 10:24 PM EST 975 mg ketorolac (Toradol) (15 mg/mL) injection 15 mg 15 mg, Intravenous, ONCE, 1 dose, On Mon01/27/23 at 2213, Routine Given 01/27/2023 10:23 PM EST 15 mg lidocaine (Lidoderm) 5% patch 1 patch 1 patch, Transdermal, Administer over 12 Hours, EVERY 24 HOURS, First dose on Mon01/27/23 at 2213, Until Discontinued, Apply patch(es) for 12 hours, and then remove for 12 hours., Routine Patch Applied 01/27/2023 10:24 PM EST 1 patch 03- Shoulder (Left) documented in this encounter Active and Recently Administered Medications Times are shown in EST. Scheduled Medication Order 01/26/2023 01/27/2023 01/28/2023 acetaminophen (Tylenol) tablet 975 mg (COMPLETED) 975 mg (rounded from 1,000 mg), Oral, ONCE, 1 dose, On Mon01/27/23 at 2213, Maximum dose of acetaminophen is 4,000 mg from all sources in 24 hours. When ordered for pain, acetaminophen should be given even when other ordered pain medications are indicated., STAT 2223 (Given - Provider: Yaritza Vargas RN) ketorolac (Toradol) (15 mg/mL) injection 15 mg (COMPLETED) 15 mg, Intravenous, ONCE, 1 dose, On Mon01/27/23 at 2213, Routine 3 (Given - Provider: Yaritza Vargas RN) lidocaine (Lidoderm) 5% patch 1 patch 1 patch, Transdermal, Administer over 12 Hours, EVERY 24 HOURS, First dose on Mon01/27/23 at 2213, Until Discontinued, Apply patch(es) for 12 hours, and then remove for 12 hours., Routine 2224 (Patch Applied - Provider: Yaritza Vargas RN) 0100 (Due: Patch Removed - Provider: Automatic Discharge Provider - Comment: Time automatically adjusted from order being discontinued) documented in this encounter Care Teams Animal Killer Relationship Specialty Start Date End Date Violet Martinez MD [address] [place] [address] PCP - General 01/26/10 documented as of this encounter
--- OUTSIDE RECORDS SUMMARY | 2024-01-09 16:12 | XMS_ITS | Clinical Summary ---
Author Organization [facility] Address [facility] [place] [address] Care Team Providers Care Service Tester Name Role Phone Violet Martinez MD Primary Care Provider [phone] Allergies No known active allergies Social History Tobacco Use Types Packs/Day Years [...] on file Sexual Orientation Not on file Last Filed Vital Signs Vital Sign Reading Time Taken Comments Blood Pressure 146/84 01/28/2023 8:34 AM EST Pulse 74 01/28/2023 8:34 AM EST Temperature 36.5 ??C (97.7 ??F) 01/28/2023 5:47 AM ES T Respiratory Rate 16 01/28/2023 8:34 AM EST Oxygen Saturation 99% 01/28/2023 8:34 AM EST Inhaled Oxygen Concentration - - Weight 140.6 kg (310 lb) 01/27/2023 7:41 PM EST Height 177.8 cm (5' 10) 01/16/2023 6:55 AM EST Body Mass Index 44.48 01/16/2023 6:55 AM EST Plan of Treatment Health Maintenance Due Date Last Done Comments Pneumococcal Vaccine: At-Ris k 5-64yrs (1 of 2 - PCV) 06/22/1987 HIV screen 06/22/1999 Hepatitis C Screening 06/22/1999 Lipid Screening 06/22/1999 Hepatitis B vaccine (0-59 yrs) (1) 2000 Tetanus/Diphtheria/Pertussis Vaccines (1 - Tdap) 2000 Covid-19 Vaccine (1 - 2022- season) 2023 Influenza (Flu) vaccine (1 o f 1 - Influenza standard series) 11/05/2023 Diabetes Screening (HgbA1C or Glucose) 01/27/2026, 01/16/2023 Procedures Procedure Name Priority Date/Time Associated Diagnosis Comments BASIC METABOLIC PANEL STAT 01/27/2023 10:26 PM EST from Last 3 Months or Most Recently Relevant to Health Maintenance Results * Basic Metabolic Panel (non-fasting) (01/27/2023 10:26 PM EST) Glucose 101 65 - 199 mg/dL [facility] Comment:Diabetes: >=200 mg/d L plus symptoms Blood Urea Nitrogen 18 10 - 20 mg/dL [facility] Creatinine 0.87 0.80 - 1.50 mg/dL [facility] Sodium 138 135 - 145 mmol/L [facility] Potassium 3.9 3.5 - 5.0 mmol/L [facility] Comment: Please note: ??Patients with WBC >100,000 may have falsely elevated Potassium levels. ??For accurate Potassium quantification in these patients send serum separator tube (gold top) for subsequent determinations. ??Contact the Clinical Chemistry Laboratory if there are any questions. Chloride 100 98 - 107 mmol/L [facility] Carbon Dioxide 23 22 - 31 mmol/L [facility] Anion Gap 15 5 - 15 mmol/L [facility] Calcium 9.9 8.5 - 10.5 mg/dL [facility] Est Glomerular Filtration Rate 111 >=60 mL/min/1. 73 m?? [facility] Comment: This patient's estimated GFR [...] Lab Margarita Campos MD CHEMISTRY ORDERABLE S [facility] [place] [address] from Last 3 Months or Most Recently Relevant to Health Maintenance Care Teams Service Tester Relationship Specialty Start Date End Date Violet Martinez MD [address] [place], [place] [id number] PCP - General 01/26/10
== END 2024-01-09 14:06 | disposition home or self-care (01) ==
LOC: ER 16:11
PROVIDERS: Emergency Provider Student in an Organized Health Care Education/Training Program; PCP Physician Assistant
DX: R11.2 Nausea with vomiting, unspecified (principal); R10.13 Epigastric pain; I10 Essential (primary) hypertension; F17.210 Nicotine dependence, cigarettes, uncomplicated; Z59.00 Homelessness unspecified
CPT/HCPCS: 99283

== ENCOUNTER 2024-01-30 16:10 | Outpatient (REF) | payer MEDICAID, SELFPAY ==
[2024-01-30 14:24] LABS: HCT 51.5 % (40.0-50.0); HGB 17.4 g/dL (13.5-17.5); MCH 31.1 pg (27.0-33.0); MCHC 33.8 % (32.0-36.0); MCV 92 fL (80-95); MPV 12.1 fL (8.0-11.0); Platelet Count 148 10^3/uL (130-400); RDW 14.3 % (11.8-14.1); RDW-SD 48.2 fL; WBC 7.19 10^3/uL (4.4-10.8)
[2024-01-30 14:41] LABS: Hemoglobin A1C 5.5 % (<5.7)
[2024-01-30 14:47] LABS: Anion Gap 10.6 mmol/L (3-11); BUN 21 mg/dL (7-18); CO2 24.4 mmol/L (21.0-32.0); Calcium 9.3 mg/dL (8.5-10.1); Calculated LDL 97 mg/dL (<100); Chloride 105 mmol/L (98-107); Cholesterol 176 mg/dL (<200); Estimated GFR 96.37 (mL/min/1.73m2); Glucose 87 mg/dL (74-106); HDL Cholesterol 40 mg/dL (40-60); Potassium 4.1 mmol/L (3.5-5.1); Sodium 140 mmol/L (136-145); Triglyceride 197 mg/dL (<150)
--- OUTSIDE RECORDS SUMMARY | 2024-01-30 16:15 | XMS_ITS | Encounter Summary ---
Author Organization [facility] Address [facility] [place] [address] Care Team Providers Care Turning And Beading Machine Operator Name Role Phone Violet Martinez MD Primary Care Provider [phone] Encounter Details Date Type Department Care Team [...] on filedocumented in this encounter Care Teams Turning And Beading Machine Operator Relationship Specialty Start Date End Date Violet Martinez MD [address] [place] [address] PCP - General 01/26/10 documented as of this encounter
--- OUTSIDE RECORDS SUMMARY | 2024-01-30 16:15 | XMS_ITS | Encounter Summary ---
Author Organization [facility] Address [facility] [place] [address] Care Team Providers Care Angle Furnaceman Name Role Phone Violet Martinez MD Primary Care Provider [phone] Reason for Visit * Reason Comments Shoulder Pain Encounter Details Date Type Department Care Team (Late st Contact Info) Description 01/28/2023 5:35 AM EST - 01/28/2023 8:41 AM EST Emergency Emergency Department [place] [phone] Maida Haddad MD [facility] [place] [address] Left shoulder pain, unspecified chronicity Discharge Disposition: [...] sent through Care Everywhere. * Shoulder Pain (Russian) documented in this encounter ED Notes * [...] bilateral upper extremities at the elbows, 5/5 glassware maker strength bilaterally, 5/5 finger abduction bilaterally. Able [...] sinus rhythm with rate of 75, normal DC and QT intervals, normal axis, no ST [...] up plan. Joseph King MD Resident 01/28/23 0990 ED ATTENDING ATTESTATION NOTE The patient was [...] (Bezet) 422 ms MUSE SYSTEM Calculated P [place] 42 degrees MUSE SYSTEM Calculated R [place] 18 degrees MUSE SYSTEM Calculated T [place] 14 degrees MUSE SYSTEM INTERPRETATION Normal sinus rhythm Normal ECG When compared with ECG of 16-JAN-2023 08:22, No significant change was found Confirmed by MD Ghotra Daniel ([id number]) on 01/29/2023 3:01:36 PM MUSE SYSTEM 01/28/2023 6:09 AM EST 01/29/2023 3:01 PM EST Maida Hdadad MD ECG ORDERABLES MUSE SYSTEM documented in [...] STAT 0653 (Given - Provid er: Roberth Shulka RN) oxyCODONE (Roxicodone) tablet 5 mg (COMPLETED) 5 mg, Oral, ONCE, 1 dose, On 01/28/23 at 0647, STAT 0653 (Given - Provid er: Roberth Shukla RN) oxyCODONE (Roxicodone) tablet 5 mg (COMPLETED) 5 mg, Oral, ONCE, 1 dose, On 01/28/23 at 0818, STAT 0820 (Given - Provid er: Nika Oquendo NRP) documented in this encounter Care Teams Angle Furnaceman Relationship Specialty Start Date End Date Violet Martinez MD [address] [place] [address] PCP - General 01/26/10 documented as of this encounter
--- OUTSIDE RECORDS SUMMARY | 2024-01-30 16:15 | XMS_ITS | Encounter Summary ---
Author Organization [facility] Address [facility] [place] [address] Care Team Providers Care Field Operator Name Role Phone Violet Martinez MD Primary Care Provider [phone] Reason for Referral * Consultation (Routine) - Closed Specialty Diagnoses / Procedures Referred By Contlorena t Referred To Contact Orthopaedics Diagnoses Left shoulder pain, unspecified chronicity Joseph Khan MD [facility] [place] [address] [facility] [address] [place] [address] Referral ID Status Reason Start Date Expiration Date V isits Requested Visits Authorized [id number] Closed Consult, Test & Treat 01/27/2023 01/27/2024 1 1 Reason for Visit * Reason Comments Shoulder Pain LEFT Encounter Details Date Type Department Care Team (Late st Contact Info) Description 01/27/2023 9:07 PM EST - 01/28/2023 1:00 AM EST Emergency [place] [phone] Joseph Baker DO [facility] [place] [address] Left shoulder pain, unspecified chronicity Discharge Disposition: Home Social History Tobacco Use Types Packs/Day Years Used Date Smoking Tobacco: Every Day Cigarettes Passive Smoke Exposure: Never Comments:Pt refused cessatio n guidance. [facility] Inpatient Questions Answer Date Recorded Does Anyone [...] through Care Everywhere. * Rotator Cuff: Exercises (Amharic) documented in this encounter ED Notes * [...] 10:26 PM EST) Neutrophil % 61.2 % [facility] Neutrophil Absolute 5.35 1.70 - 6.10 x10(3)/[facility] LABORATORY Lymph % 29.8 % [facility] Lymphocytes Abs 2.6 0.9 - 3.2 x10(3)/[facility] LABORATORY Monocyte % 6.2 % [facility] Monocyte Abs 0.5 0.3 - 0.9 x10(3)/[facility] LABORATORY Eos % 1.9 % [facility] Eosinophils Abs 0.2 0.0 - 0.4 x10(3)/[facility] LABORATORY Basophil % 0.7 % [facility] Baso Absolute 0.1 0.0 - 0.1 x10(3)/[facility] LABORATORY Immature Gran % 0.20 % [facility] Comment: Immature granulocytes(IG's)percentage and absolute count will include metamyelocytes, myelocytes, and promyelocytes. Blood smears from CBCs yielding IG's will be scanned manually for concordance. If this scan disagrees with the automated IG or if promyelocytes are noted, a manual differential will be performed. Immature Gran Absolute 0.02 0.00 - 0.04 x10(3)/[facility] LABORATORY Blood 01/27/2023 10:2 6 PM EST 01/27/2023 10:32 PM EST Narrative Resulting Agency Comment Spec In Lab Joseph Khan MD HEMATOLOGY ORDERABLE S [facility] [place] [address] * (ABNORMAL) Hemogram (01/27/2023 10:26 PM EST) White Blood Cell 8.8 4.0 - 9.5 x10(3)/mc L [facility] Red Blood Cell 6.10(H) 4.58 - 5.54 x10(6)/mc L [facility] Hemoglobin 18.8(H) 13.7 - 16.5 g/dL [facility] Hematocrit 53.1(H) 40.5 - 48.5 % [facility] Mean Cell Volume 87.0 82.9 - 93.1 fL [facility] Mean Cell Hemoglobin 30.8 27.5 - 32.1 pg [facility] Mean Cell Hemoglobin Concentration 35.4 32.0 - 35.7 g/dL [facility] Platelet 180 145 - 357 x10(3)/mc L [facility] RDW Standard Deviation 42.8 36.0 - 45.0 fL [facility] RDW coefficient of variation 13.4 11.4 - 13.8 % [facility] Mean Platelet Volume 10.7 7.6 - 12.9 fL [facility] NRBC% auto 0.0 % [facility] ITAL LABORATORY NRBC Absolute 0.000 0.000 - 0.000 x10(3)/mc L [facility] Blood 01/27/2023 10:2 6 PM EST 01/27/2023 10:32 PM EST Narrative Resulting Agency Comment Spec In Lab Joseph Khan MD HEMATOLOGY ORDERABLE S [facility] [place] [address] * (ABNORMAL) Acetaminophen level (01/27/2023 10:26 PM EST) Acetamin Lvl <5(L) 5 - 30 mg/L [facility] Comment: result rechecked-KS Levels >150 mg/L at 4 hours post ingestion are often an indication for N-Acetylcysteine. Blood 01/27/2023 10:2 6 PM EST 01/27/2023 10:32 PM EST Narrative Resulting Agency Comment Spec In Lab Margarita Campos MD CHEMISTRY ORDERABLE S Performing Organization Address [facility] Co de Phone Number [facility] [place] [address] * (ABNORMAL) CRP, acute inflammation (01/27/2023 10:26 PM EST) C-Reactive Protein 8.7(H) <=4.9 mg/L [facility] Blood 01/27/2023 10:2 6 PM EST 01/27/2023 10:32 PM EST Narrative Resulting Agency Comment Spec In Lab Margarita Campos MD CHEMISTRY ORDERABLE S Performing Organization Address [facility] de Phone Number [facility] [place] [address] * (ABNORMAL) Sedimentation rate (01/27/2023 10:26 PM EST) Sedimentation Rate Automated 54(H) 2 - 28 mm/hr [facility] Comment: Effective February 13, 2019 new capillary photometric technology has resulted in a change in reference ranges. It is recommended that each ESR result be reviewed with its own age appropriate reference range. Blood 01/27/2023 10:2 6 PM EST 01/27/2023 10:32 PM EST Narrative Resulting Agency Comment Spec In Lab Margarita Campos MD HEMATOLOGY ORDERABL ES Performing Organization Address [facility] Co de Phone Number [facility] [place] [address] * Basic Metabolic Panel (non-fasting) (01/27/2023 10:26 PM EST) Glucose 101 65 - 199 mg/dL [facility] Comment:Diabetes: >=200 mg/d L plus symptoms Blood Urea Nitrogen 18 10 - 20 mg/dL [facility] Creatinine 0.87 0.80 - 1.50 mg/dL [facility] Sodium 138 135 - 145 mmol/L [facility] Potassium 3.9 3.5 - 5.0 mmol/L [facility] Comment: Please note: ??Patients with WBC >100,000 may have falsely elevated Potassium levels. ??For accurate Potassium quantification in these patients send serum separator tube (gold top) for subsequent determinations. ??Contact the Clinical Chemistry Laboratory if there are any questions. Chloride 100 98 - 107 mmol/L [facility] Carbon Dioxide 23 22 - 31 mmol/L [facility] Anion Gap 15 5 - 15 mmol/L [facility] Calcium 9.9 8.5 - 10.5 mg/dL [facility] Est Glomerular Filtration Rate 111 >=60 mL/min/1. 73 m?? [facility] Comment: This patient's estimated GFR [...] Lab Margarita Campos MD CHEMISTRY ORDERABLE S [facility] [place] [address] * XR Shoulder Left (Generic) (01/27/2023 9:34 [...] who have questions please contact the health cna caregiver that requested your imaging first. ? Electronically signed by: Clayton Boss MD, [facility] ([phone]), at 01/27/2023 10:30 PM Narrative 01/27/2023 10:30 [...] patients who have questions please contactthe health cna caregiver that requested your imaging first. Naun Bradley [...] discontinued) documented in this encounter Care Teams Field Operator Relationship Specialty Start Date End Date Violet Martinez MD [address] [place] [address] PCP - General 01/26/10 documented as of this encounter
--- OUTSIDE RECORDS SUMMARY | 2024-01-30 16:15 | XMS_ITS | Clinical Summary ---
Author Organization [facility] Address [facility] [place] [address] Care Team Providers Care Fashion Director Party Plan Sales Name Role Phone Violet Martinez MD Primary Care Provider [phone] Allergies No known active allergies Social History [...] - Tdap) 2000 Covid-19 Vaccine (1 - 2023- season) 2023 Influenza (Flu) vaccine (1 o [...] EST) Glucose 101 65 - 199 mg/dL [facility] Comment:Diabetes: >=200 mg/d L plus symptoms Blood Urea Nitrogen 18 10 - 20 mg/dL [facility] Creatinine 0.87 0.80 - 1.50 mg/dL [facility] Sodium 138 135 - 145 mmol/L [facility] Potassium 3.9 3.5 - 5.0 mmol/L [facility] Comment: Please note: ??Patients with WBC >100,000 may have falsely elevated Potassium levels. ??For accurate Potassium quantification in these patients send serum separator tube (gold top) for subsequent determinations. ??Contact the Clinical Chemistry Laboratory if there are any questions. Chloride 100 98 - 107 mmol/L [facility] Carbon Dioxide 23 22 - 31 mmol/L [facility] Anion Gap 15 5 - 15 mmol/L [facility] Calcium 9.9 8.5 - 10.5 mg/dL [facility] Est Glomerular Filtration Rate 111 >=60 mL/min/1. 73 m?? [facility] Comment: This patient's estimated GFR [...] Lab Margarita Campos MD CHEMISTRY ORDERABLE S [facility] [place] [address] from Last 3 Months or Most Recently Relevant to Health Maintenance Care Teams Fashion Director Party Plan Sales Relationship Specialty Start Date End Date Violet Martinez MD [address] [place], [place] [address] PCP - General 01/26/10
--- OUTSIDE RECORDS SUMMARY | 2024-01-30 16:15 | XMS_ITS | Encounter Summary ---
Author Organization [facility] [place] [address] Care Team Providers Care Plumbing Instructor Name Role Phone Violet Martinez MD Primary Care Provider [phone] Reason for Visit * Reason Comments Shoulder Pain Encounter Details Date Type Department Care Team (Late st Contact Info) Description 01/16/2023 6:49 AM EST - 01/16/2023 3:55 PM EST Emergency [place] [phone] Apolonia Collins MD [facility] [place] [address] Back pain, unspecified back location, unspecified back [...] sent through Care Everywhere. * Shoulder Pain (Tajik) * Back Pain (Tajik) * Hypertension (Tajik) documented in this encounter Medications at Time [...] inform RN that TVT goes up to [facility]. RN stated that pt is currently homeless and residing at the [facility]. Printed out the route and times for TVT for the River route. Soonest time is 404pm at the east entrance. Lenka Mejia RN, BSN, ACM-QUENCHING CAR OPERATORresearch chef Office of Care Management Pager: [phone] * ED Triage - Richi Flores RN [...] EST) Troponin-T, High Sensitivity 14 <=22 ng/L [facility] Comment: This patient's troponin T concentration [...] troponin value can be found in the [facility] Laboratory Test Catalog Troponin - [facility] Laboratory Test Catalog Reference: Fourth [place] Definition of Myocardial Infarction. Journal of the [place] [employer] 2018;72:9902-5205 Blood 01/16/2023 10:5 0 AM EST 01/16/2023 11:53 AM EST Narrative Resulting Agency Comment Spec In Lab Apolonia Collins MD CHEMISTRY ORDERABLES Performing Organization Address City/[facility]/[place] [address] * EKG 12 Lead (01/16/2023 8:22 AM EST) Ventricular rate 76 BPM MUSE SYSTEM Atrial Rate 76 BPM MUSE SYSTEM P-R Interval 146 ms MUSE SYSTEM QRS Duration 86 ms MUSE SYSTEM Q-T Interval 380 ms MUSE SYSTEM QTC Calculated (Bezet) 427 ms MUSE SYSTEM Calculated P [place] 42 degrees MUSE SYSTEM Calculated R [place] 28 degrees MUSE SYSTEM Calculated T [place] 20 degrees MUSE SYSTEM INTERPRETATION Normal sinus rhythm Normal ECG No previous ECGs available Confirmed by MD Padmaja, Mayank ([id number]) on 01/18/2023 6:29:28 PM MUSE SYSTEM 01/16/2023 8:22 AM EST 01/18/2023 6:29 PM EST Apolonia Collins MD ECG ORDERABLES Performing Organization Address City/[facility]/ZIP Co de Phone Number MUSE SYSTEM [...] have questions please contact the health care asst that requested your imaging first. ? Narrative 01/16/2023 9:23 AM EST EXAMINATION: CT [...] who have questions please contactthe health care asst that requested your imaging first. Apolonia Collins MD IMG CT ORDERABLES * Gold Tube HOLD (01/16/2023 7:50 AM EST) Gold Hold Sample in lab. [facility] Blood Venous Draw / Unknown 01/16/2023 7:50 AM EST 01/16/2023 8:02 AM EST Irina Claros MD CHEMI[place] [address] * Blue Tube HOLD (01/16/2023 7:50 AM EST) Pathologist [facility] Blue Hold Sample in lab. [facility] Blood Venous Draw / Unknown 01/16/2023 7:50 AM EST 01/16/2023 8:01 AM EST Irina Claros MD [place] [address] * (ABNORMAL) Differential, Automated (01/16/2023 7:50 AM EST) [facility] Neutrophil % 76.8 % [facility] Neutrophil Absolute 7.04(H) 1.70 - 6.10 x10(3)/mc L [facility] Lymph % 15.2 % [facility] Lymphocytes Abs 1.4 0.9 - 3.2 x10(3)/mc L [facility] Monocyte % 5.6 % [facility] Monocyte Abs 0.5 0.3 - 0.9 x10(3)/mc L [facility] Eos % 1.6 % [facility] Eosinophils Abs 0.2 0.0 - 0.4 x10(3)/mc L [facility] Basophil % 0.5 % [facility] Baso Absolute 0.0 0.0 - 0.1 x10(3)/mc L [facility] Immature Gran % 0.30 % [facility] Comment: Immature granulocytes(IG's)percentage and absolute count will include metamyelocytes, myelocytes, and promyelocytes. Blood smears from CBCs yielding IG's will be scanned manually for concordance. If this scan disagrees with the automated IG or if promyelocytes are noted, a manual differential will be performed. Immature Gran Absolute 0.03 0.00 - 0.04 x10(3)/mc L [facility] Blood 01/16/2023 7:50 AM EST 01/16/2023 8:01 AM EST Narrative Resulting Agency Comment Spec In Lab Irina Claros MD HEMATOLOGY ORDERABLE S [facility] [place] [address] * (ABNORMAL) Hemogram (01/16/2023 7:50 AM EST) White Blood Cell 9.2 4.0 - 9.5 x10(3)/mc L [facility] Red Blood Cell 6.37(H) 4.58 - 5.54 x10(6)/mc L [facility] Hemoglobin 19.3(H) 13.7 - 16.5 g/dL [facility] Hematocrit 54.5(H) 40.5 - 48.5 % [facility] Mean Cell Volume 85.6 82.9 - 93.1 fL [facility] Mean Cell Hemoglobin 30.3 27.5 - 32.1 pg [facility] Mean Cell Hemoglobin Concentration 35.4 32.0 - 35.7 g/dL [facility] Platelet 176 145 - 357 x10(3)/mc L [facility] RDW Standard Deviation 42.1 36.0 - 45.0 fL [facility] RDW coefficient of variation 13.7 11.4 - 13.8 % [facility] Mean Platelet Volume 10.9 7.6 - 12.9 fL [facility] NRBC% auto 0.0 % [facility] NRBC Absolute 0.000 0.000 - 0.000 x10(3)/mc L [facility] Blood 01/16/2023 7:50 AM EST 01/16/2023 8:01 AM EST Narrative Resulting Agency Comment Spec In Lab Irina Claros MD HEMATOLOGY ORDERABLE S [facility] [place] [address] * (ABNORMAL) Comprehensive metabolic panel (non-fasting) (01/16/2023 7:50 AM EST) Glucose 125 65 - 199 mg/dL [facility] Comment:Diabetes: >=200 mg/d L plus symptoms Blood Urea Nitrogen 14 10 - 20 mg/dL [facility] Creatinine 0.81 0.80 - 1.50 mg/dL [facility] Sodium 137 135 - 145 mmol/L [facility] Potassium 4.2 3.5 - 5.0 mmol/L [facility] Comment: Please note: ??Patients with WBC >100,000 may have falsely elevated Potassium levels. ??For accurate Potassium quantification in these patients send serum separator tube (gold top) for subsequent determinations. ??Contact the Clinical Chemistry Laboratory if there are any questions. Chloride 100 98 - 107 mmol/L [facility] Carbon Dioxide 23 22 - 31 mmol/L [facility] Anion Gap 14 5 - 15 mmol/L [facility] Calcium 9.8 8.5 - 10.5 mg/dL [facility] Protein, Total 8.2(H) 6.1 - 8.0 g/dL [facility] Albumin 4.6 3.2 - 5.2 g/dL [facility] Aspartate Aminotransferase 21 0 - 39 unit/L [facility] Alanine Aminotransferase 20 0 - 55 unit/L [facility] Alkaline Phosphatase 82 40 - 130 unit/L [facility] Bilirubin, Total 0.4 0.2 - 1.3 mg/dL [facility] Est Glomerular Filtration Rate 114 >=60 mL/min/1. 73 m?? [facility] Comment: This patient's estimated GFR [...] In Lab Apolonia Collins MD CHEMI[place]Y [place] [address] * Troponin (01/16/2023 7:50 AM EST) Troponin-T, High Sensitivity 16 <=22 ng/L [facility] Comment: This patient's troponin T concentration [...] troponin value can be found in the [facility] Laboratory Test Catalog Troponin - [facility] Laboratory Test Catalog Reference: Fourth [place] Definition of Myocardial Infarction. Journal of the [place] [employer] 2018;72:9799-2840 Blood 01/16/2023 7:50 AM EST 01/16/2023 8:01 AM EST Narrative Resulting Agency Comment Spec In Lab Apolonia Collins MD CHEMI[place] [address] * XR Chest One View (01/16/2023 7:24 [...] have questions please contact the health care asst that requested your imaging first. ? Narrative 01/16/2023 7:40 AM EST EXAMINATION: XR [...] who have questions please contactthe health care asst that requested your imaging first. Apolonia Collins MD IMG DX ORDERABLES documented [...] Jr.) documented in this encounter Care Teams Plumbing Instructor Relationship Specialty Start Date End Date Violet Martinez MD [facility] [address] [place] [address] PCP - General 01/26/10 documented as of this encounter
--- OUTSIDE RECORDS SUMMARY | 2024-01-30 16:15 | XMS_ITS | Encounter Summary ---
Author Organization [facility] [place] [address] Care Team Providers Care Product Technology Scientist Name Role Phone Violet Martinez MD Primary Care Provider Encounter Details Date Type Department Care Team (Late st Contact Info) Description 03/22/2023 Interpretation Only [address] [phone] Kenneth Wild Jr., MD [address] [place] [address] Social History Tobacco Use Types Packs/Day Years [...] EST) PT CLASS E DH RAD ADMITDTTM [id number] DH RAD PT RAD INFO [id number]^Wild^G erald^J DH RAD EXAM DESC XRSHDL^XR Shoulder [...] who have questions please contact the health animal care supervisor that requested your imaging first. ? Narrative [...] patients who have questions please contactthe health animal care supervisor that requested your imaging first. Electronically signed by: Jonah Baig MDBaptist [facility]([phone]), at 03/22/2023 2:09 PM Kenneth Wild Jr., MD IMG DX ORDERABLES documented in this encounter Visit Diagnoses Not on filedocumented in this encounter Care Teams Product Technology Scientist Relationship Specialty Start Date End Date Violet Martinez MD [address] [place] [address] [facility] [address] [place] [address] PCP - General 01/26/10 documented as of this encounter
== END 2024-01-30 16:11 | disposition home or self-care (01) ==
LOC: NCHCN 16:10
PROVIDERS: PCP Physician Assistant; Visit Provider Physician Assistant
DX: R53.83 Other fatigue (principal); Z13.1 Encounter for screening for diabetes mellitus; I10 Essential (primary) hypertension
CPT/HCPCS: 80048; 80061; 84403; 85027; 83036

== ENCOUNTER 2024-05-02 10:36 | Emergency (ER) | payer MEDICAID, SELFPAY ==
[2024-05-02 12:05] VITALS: BP 180/114; PULSE 55; RESP 20; TEMP 37; O2SAT 95
== END 2024-05-02 14:47 | disposition left against medical advice (07) ==
PROVIDERS: Emergency Provider Student in an Organized Health Care Education/Training Program; PCP Physician Assistant
DX: Z53.21 Procedure and treatment not carried out due to patient leaving prior to being seen by health care provider (principal)

== ENCOUNTER 2024-06-11 19:03 | Emergency (ER) | payer MEDICAID, SELFPAY ==
[2024-06-11 19:11] VITALS: BP 200/123; PULSE 82; RESP 20; TEMP 36.9; O2SAT 98
--- NOTE | 2024-06-11 19:27 | ED.GENADUL_ITS ---
Discharge Plan Disposition Patient Disposition: Home Condition: Stable Discharge Details Clinical Impression: Head trauma Primary Care Provider: Clinton Cruz ED Provider: Babar Sanches Home Meds and New Rx's Prescriptions: Continued gabapentin 600 mg tablet 600 mg PO TID 30 Days Qty: 90 11RF Rx Instructions: no abrupt cessation prochlorperazine maleate 10 mg tablet 10 mg PO Q8H PRN (Reason: nausea and vomiting) Qty: 10 0RF gabapentin 300 mg capsule 600 mg PO TID Patient Comments: TAKE ONE CAPSULE BY MOUTH THREE TIMES A DAY WITH 600MG TABLET lisinopril 20 mg Tablet 20 mg PO DAILY amlodipine 10 mg Tablet 10 mg PO DAILY pantoprazole 40 mg Tablet,Delayed Release (Dr/Ec) 40 mg PO DAILY albuterol sulfate [ProAir HFA] 90 mcg/actuation Hfa Aerosol Inhaler 2 puff INHALATION Q6H PRN spironolactone 50 mg Tablet 50 mg PO DAILY Discharge Instructions Additional Instructions: Follow-up with your primary care. Your CAT scan did not show any concerning findings. Is important that you take your blood pressure medications. If you feel more ill or feel you are suffering from emergent medical process return to the emergency department for evaluation HPI General Mode of arrival: ambulatory . Date/Time Provider Initiated Documentation: 06/11/24 19:09 . Limitations to Documentation: no limitations . Information obtained by: patient . History of Present Illness 43 year old M presents to the emergency department with the chief complaint of headache s/p hitting head on wall, described as moderate, Quality is described as aching, Patient started experiencing this hour(s) (5) and it has been constant. No relieving factors improve symptom(s), No exacerbating factors reported . Patient notes denies confusion, chest pain and shortness of breath. Patient did receive the following treatments prior to arrival, none Related Data Home Medications ?Medication ?Instructions ?Recorded ?Confirmed albuterol sulfate 90 mcg/actuation 2 puff inhalation Q6H PRN 04/23/20 06/11/24 aerosol inhaler (ProAir HFA) amlodipine 10 mg tablet 10 mg PO DAILY 04/23/20 06/11/24 lisinopril 20 mg tablet 20 mg PO DAILY 04/23/20 06/11/24 pantoprazole 40 mg tablet,delayed 40 mg PO DAILY 04/23/20 06/11/24 release spironolactone 50 mg tablet 50 mg PO DAILY 04/23/20 06/11/24 gabapentin 600 mg tablet 600 mg PO TID 30 days #90 tabs 07/02/20 06/11/24 prochlorperazine maleate 10 mg 10 mg PO Q8H PRN nausea and 08/20/22 06/11/24 tablet vomiting #10 tabs gabapentin 300 mg capsule 600 mg PO TID 05/02/24 06/11/24 Previous Rx's ?Medication ?Instructions ?Recorded gabapentin 600 mg tablet 600 mg PO TID 30 days #90 tabs 07/02/20 prochlorperazine maleate 10 mg 10 mg PO Q8H PRN nausea and 08/20/22 tablet vomiting #10 tabs Allergies Allergy/AdvReac Type Severity Reaction Status Date / Time No Known Allergies Allergy Verified 06/11/24 19:14 General Stated Complaint: HeadInjury KARL: 3 Review of Systems All systems reviewed & are unremarkable except as noted in HPI and below Constitutional Constitutional: Denies chills, Denies fever(s) and Denies weakness Cardiovascular Cardiovascular: Denies chest pain and Denies dyspnea Respiratory Respiratory: Denies cough and Denies dyspnea Gastrointestinal Gastrointestinal: Denies abdominal pain, Denies nausea and Denies vomiting Neurologic Neurologic: Denies weakness Psychiatric Psychiatric: Denies depression Exam Const General: no acute distress Orientation: alert [facility] Head: normal to inspection Ears: external ears normal General nose exam: external nose normal Mouth: moist mucous membranes Eyes General: appearance normal, both eyes and all related structures Neck Neck: normal visual inspection Resp Effort & Inspection: normal respiratory effort and able to speak in complete sentences Cardio Rate: regular rate Skin General skin exam: no rashes or lesions noted Neuro General: patient alert and patient oriented x3 Extrem General: normal to inspection Psych Mental Status: mental status grossly normal Course Vital Signs Vital signs: Vital Signs Temperature 36.9 C 06/11/24 19:11 Pulse 82 06/11/24 19:11 Respiratory Rate 20 06/11/24 19:11 Blood Pressure 200/123 H 06/11/24 19:11 Pulse Oximetry 98 06/11/24 19:11 Temperature 36.9 C 06/11/24 19:11 Pulse 82 06/11/24 19:11 Respiratory Rate 20 06/11/24 19:11 Respiratory Effort Normal 06/11/24 19:20 Respiratory Depth Normal 06/11/24 19:20 Respiratory Pattern Normal 06/11/24 19:20 Blood Pressure 200/123 H 06/11/24 19:11 Blood Pressure Position Sitting 06/11/24 19:11 Pulse Oximetry 98 06/11/24 19:11 Oxygen Delivery Method Room Air 06/11/24 19:11 Oxygen Flow Rate 0 06/11/24 19:11 Medical Decision Making 43-year-old male comes in with headache. He says that earlier today he hit his front part of his head against a wall when he was feeling frustrated. Denies any SI or HI. He says since then he said some anterior frontal headache so came here for evaluation. Has not had any vomiting, no difficulty breathing, no neck pain, no chest pain, abdominal pain. He is ambulatory on arrival, he has no focal neurological deficits, no signs of trauma to the head and no C-spine tenderness. I suspect concussion. Will obtain CT head to exclude hemorrhage. CT negative, patient is stable, he is eating without any symptoms. Given negative CT and no other concerning findings feel he stable for discharge and advised to follow-up with his PCP if not improving and return precautions given. He was given a home dose of his amlodipine as he did not take that today. Quality:SDOH Health Related Social Needs: No Data to Display PFSH All Active Problems (Updated 06/11/24 @ 20:57 by Babar Sanches MD) Head trauma (Acute) Nausea and vomiting (Acute) Gout of left ankle (Acute) Medical History Tobacco use Back pain Depression Murmur Sleep apnea GERD (gastroesophageal reflux disease) Hypertension Asthma Social History Smoking/Tobacco Use Status: Current every day Tobacco Type: cigarettes Tobacco: How many years used: 25 Smoking risk assessment performed?: Yes Alcohol Intake: current Alcohol Intake frequency: holidays/special occasions only Drug use: Daily Substance use type: marijuana Housing: homeless current occupation: N/A What type of physical activity do you participate in: independent ambulation Do you feel safe at home: Yes Do you feel safe in your relationship?: Yes
[2024-06-11] MEDS: amLODIPine 5 MG TAB (19:50)
[2024-06-11] MEDS: Ondansetron O.D.T. 4 MG TABEF PO (19:55)
--- NOTE | 2024-06-11 20:04 | DI.CT_ITS ---
Exam(s) CT HEAD WO EXAM: CT HEAD WO CLINICAL HISTORY: frontal head pain s/p striking wall. TECHNIQUE: Imaging Protocol: Axial computed tomography images with coronal and sagittal reformatted images were created and reviewed COMPARISON: No exams were available for comparison FINDINGS: Ventricles and Extra axial spaces: Normal in size and morphology for the patient's age. Hemorrhage: None. Cerebral parenchyma: No evidence of acute infarct or mass. Midline shift: None. Brainstem/Cerebellum: Normal. Calvarium: Normal. Visualized Paranasal sinuses:Clear. Mastoids: Clear. Soft Tissues: Unremarkable. ORBITS: Unremarkable. PITUITARY: Not enlarged. IMPRESSION: No acute intracranial process. RADIATION DOSE DELIVERED: Total DLP DATA REPOSITORY: All CT scans at this facility are submitted to the National Radiology Data Registry (NRDR) Dose Index Registry (DIR) with the [employer] (ACR). RADIATION OPTIMIZATION: All CT scans at this facility use at least one of these dose optimization te chniques: automated exposure control; mA and/or kV adjustment per patient size (includes targeted exa ms where dose is matched to clinical indication); or iterative reconstruction.
--- NOTE | 2024-06-11 20:46 | DI.[facility]_ITS ---
PROCEDURE INFORMATION: Exam: CT Head Without Contrast Exam date and time: 06/11/2024 7:58 PM Age: 43 years old Clinical indication: Injury or trauma; Other: Frontal head pain S/P striking wall; Blunt trauma (contusions or hematomas); Consciousness not specified; Injury date: 06/11/24 TECHNIQUE: Imaging protocol: Computed tomography of the head without contrast. Radiation optimization: All CT scans at this facility use at least one of these dose optimization techniques: automated exposure control; mA and/or kV adjustment per patient size (includes targeted exams where dose is matched to clinical indication); or iterative reconstruction. COMPARISON: No relevant prior studies available. FINDINGS: Brain: Normal. No hemorrhage. Unremarkable white matter. No mass effect. Cerebral ventricles: No ventriculomegaly. Paranasal sinuses: Visualized sinuses are unremarkable. No fluid levels. Mastoid air cells: Visualized mastoid air cells are well aerated. Bones: Unremarkable. No acute fracture. Soft tissues: Unremarkable. IMPRESSION: No acute intracranial abnormality. Dictated and Authenticated by: Rustam Correia MD. Orderin Verónica Eckert MD
[2024-06-11 21:04] VITALS: BP 186/118; PULSE 78; RESP 20; O2SAT 98
== END 2024-06-11 21:25 | disposition home or self-care (01) ==
PROVIDERS: Emergency Provider Emergency Medicine; PCP Physician Assistant
DX: S09.8XXA Other specified injuries of head, initial encounter (principal); I10 Essential (primary) hypertension; F17.210 Nicotine dependence, cigarettes, uncomplicated; W22.01XA Walked into wall, initial encounter; Y93.89 Activity, other specified; Y92.89 Other specified places as the place of occurrence of the external cause
CPT/HCPCS: 99284; 70450

== ENCOUNTER 2024-06-12 09:30 | Emergency (ER) | payer MEDICAID, SELFPAY ==
--- NOTE | 2024-06-12 09:49 | ED.GENADUL_ITS ---
Discharge Plan Disposition Patient Disposition: Home Condition: Stable Discharge Details Clinical Impression: Nausea and vomiting Primary Care Provider: Clinton Cruz ED Provider: Nallely Mcclure Home Meds and New Rx's Prescriptions: New ondansetron 4 mg tablet,disintegrating 4 mg PO Q8H PRNQty: 10 0RF No Action metoprolol succinate 50 mg tablet extended release 24 hr 50 mg PO DAILY Patient Comments: TAKE ONE TABLET BY MOUTH EVERY DAY allopurinol 100 mg tablet 100 mg PO DAILY Patient Comments: TAKE ONE TABLET BY MOUTH EVERY DAY omeprazole 20 mg capsule,delayed release(DR/EC) 20 mg PO DAILY Patient Comments: TAKE ONE CAPSULE BY MOUTH EVERY DAY valsartan 160 mg tablet 160 mg PO DAILY Patient Comments: TAKE ONE TABLET BY MOUTH EVERY DAY hydrochlorothiazide 12.5 mg tablet 12.5 mg PO DAILY Patient Comments: TAKE ONE TABLET BY MOUTH EVERY DAY spironolactone 50 mg Tablet 50 mg PO DAILY Discharge Instructions Instructions: Post-Concussion Syndrome ED Additional Instructions: You were seen in the emergency department today for evaluation of nausea with vomiting, which may be due to concussion after your head strike yesterday. You had laboratory studies that were reassuring, and received IV fluids and medicines for nausea. You had improvement in your symptoms and were able to eat and drink and is safe for you to go home and continue to take all of your medications as prescribed. I do recommend that you try the Zofran/ondansetron that we provided you as needed for ongoing nausea to help you maintain your hydration. Please follow-up with your primary care provider in the next few days to discuss this visit and any symptoms that change, worsen, or persist. Thank you for allowing us to be part of your care. HPI General Mode of arrival: ambulatory . Date/Time Provider Initiated Documentation: 06/12/24 09:39 . Information obtained by: patient and old records reviewed . HPI Narrative: HPI: This is a 43-year-old male patient with a past medical history significant for hypertension, seen here yesterday for evaluation of head trauma and diagnosed with a concussion after a negative CT scan, who is presenting for evaluation of nausea with vomiting and lightheadedness. The patient reports that the symptoms started yesterday, he has had nonbloody emesis several times throughout the morning, and feels very unwell. His nausea continues. He has not had any diarrhea, denies dysuria, abdominal pain, fever or chills. Has not been able to eat or drink, states that he has not taken any of his home medications in the last few days because they were in the trunk of his aunts car and he just got them back. No new trauma reported. No history of abdominal surgeries, has a history of constipation, last stool a few days ago. Exam: Gen: Awake and alert, appears uncomfortable HEENT: Non-icteric sclera Neck: Supple Lungs: No apparent respiratory distress, normal respiratory effort. CV: Appears well perfused, heart with mildly tachycardic rate but regular rhythm, strong distal pulses Abdomen: Non-distended, soft, nontender, without rigidity, rebound, or guarding MSK: Moves 4 extremities without apparent limitation in ROM Skin: Visualized skin without rashes, cyanosis. Neuro: Normal Gait, no obvious focal deficits or facial asymmetry. Speaks in full, clear sentences. Psych: Appropriate for situation. MDM: This is a 43-year-old male patient presenting for evaluation of nausea with vomiting. Differential includes but is not limited to postconcussive syndrome, consider gastritis, pancreatitis, hepatitis, cholecystitis, gastroenteritis. Considered metabolic electrolyte derangements, kidney injury and liver disease. I am reassured by the patient's abdominal examination and have a low concern for surgical abdomen at this time. Additionally he is afebrile and hemodynamically appropriate though mildly tachycardic. We will obtain laboratory studies to include CBC, CMP, magnesium, lipase, and will provide him with a liter of IV fluids and Zofran for initial symptomatic management. I do not see indication to proceed with advanced imaging at this time. ED Course: I independently interpreted the laboratory studies, which show no significant leukocytosis, anemia, or thrombocytopenia. The chemistry panel is without evidence of electrolyte abnormality, kidney dysfunction, or liver injury. Lipase is low. The patient was able to tolerate oral fluids and food after medications and fluids and feels much improved with no further vomiting. My leading differential is gastritis/gastroenteritis versus postconcussive v omiting. I feel reassured that this patient is able to maintain his hydration and we will provide him with a prescription for Zofran for ongoing nausea management. At this time, the patient has had a full medical evaluation and is safe for discharge to home. They are hemodynamically stable, ambulatory, and tolerating PO. They are understanding of the follow-up plan and return precautions. They l eft our facility without incident. Nallely Mcclure MD Related Data Home Medications ?Medication ?Instructions ?Recorded ?Confirmed spironolactone 50 mg tablet 50 mg PO DAILY 04/23/20 06/12/24 allopurinol 100 mg tablet 100 mg PO DAILY 06/12/24 06/12/24 hydrochlorothiazide 12.5 mg tablet 12.5 mg PO DAILY 06/12/24 06/12/24 metoprolol succinate 50 mg 50 mg PO DAILY 06/12/24 06/12/24 tablet,extended release 24 hr omeprazole 20 mg capsule,delayed 20 mg PO DAILY 06/12/24 06/12/24 release ondansetron 4 mg disintegrating 4 mg PO Q8H PRN #10 tabs 06/12/24 tablet valsartan 160 mg tablet 160 mg PO DAILY 06/12/24 06/12/24 Previous Rx's ?Medication ?Instructions ?Recorded ondansetron 4 mg disintegrating 4 mg PO Q8H PRN #10 tabs 06/12/24 tablet Allergies Allergy/AdvReac Type Severity Reaction Status Date / Time No Known Allergies Allergy Verified 06/11/24 19:14 General Stated Complaint: Nausea/Vomit/Diar KARL: 3 Medical Decision Making Quality:SDOH Health Related Social Needs: No Data to Display PFSH All Active Problems (Updated 06/12/24 @ 12:20 by Nallely Mcclure MD) Head trauma (Acute) Nausea and vomiting (Acute) Gout of left ankle (Acute) Medical History Tobacco use Back pain Depression Murmur Sleep apnea GERD (gastroesophageal reflux disease) Hypertension Asthma Social History Smoking/Tobacco Use Status: Current every day Tobacco Type: cigarettes Tobacco: How many years used: 25 Smoking risk assessment performed?: Yes Alcohol Intake: current Alcohol Intake frequency: holidays/special occasions only Drug use: Daily Substance use type: marijuana Housing: homeless current occupation: N/A What type of physical activity do you participate in: independent ambulation Do you feel safe at home: Yes Do you feel safe in your relationship?: Yes
[2024-06-12 10:09] VITALS: BP 169/88; PULSE 80; RESP 16; TEMP 36.6; O2SAT 97
[2024-06-12 10:13] LABS: Abs Immature Grans 0.05 10^3/uL (0.0-0.06); Absolute Basophil Count 0.06 10^3/uL (0.0-0.2); Absolute Eosinophil Count 0.05 10^3/uL (0.0-0.7); Absolute Lymphocyte Count 1.01 10^3/uL (1.2-3.4); Absolute Monocyte Count 0.45 10^3/uL (0.1-0.8); Absolute Neutrophil Count 8.03 10^3/uL (1.2-6.7); Basophils % 0.6 %; Eosinophils % 0.5 %; HCT 53.3 % (40.0-50.0); HGB 18.7 g/dL (13.5-17.5); Immature Grans % 0.5 %; Lymphocytes % 10.5 %; MCH 31.5 pg (27.0-33.0); MCHC 35.1 % (32.0-36.0); MCV 90 fL (80-95); MPV 10.7 fL (8.0-11.0); Monocytes % 4.7 %; Neutrophils % 83.2 %; Platelet Count 160 10^3/uL (130-400); RBC 5.93 10^6/uL (4.36-5.78); RDW 13.3 % (11.8-14.1); RDW-SD 43.7 fL; WBC 9.65 10^3/uL (4.4-10.8)
[2024-06-12] MEDS: Lactated Ringers 1,000 ML 1000 ML IV (10:13)
[2024-06-12] MEDS: Ondansetron 4 MG/2 ML VIAL IVP (10:13)
[2024-06-12 10:34] LABS: ALT 25 U/L (16-63); AST 23 U/L (15-37); Albumin 3.8 g/dL (3.4-5.0); Alkaline Phosphatase 81 U/L (46-116); Anion Gap 11.4 mmol/L (3-11); BUN 17 mg/dL (7-18); Bilirubin, Total 0.6 mg/dL (0.2-1.0); CO2 26.6 mmol/L (21.0-32.0); CREATININE 1.1 mg/dL (0.70-1.30); Calcium 9.5 mg/dL (8.5-10.1); Chloride 104 mmol/L (98-107); Estimated GFR 85.95 (mL/min/1.73m2); Glucose 133 mg/dL (74-106); Lipase 34 U/L (<78); Potassium 3.7 mmol/L (3.5-5.1); Sodium 142 mmol/L (136-145); Total Protein 8.2 g/dL (6.4-8.2)
[2024-06-12 12:30] VITALS: BP 158/89; PULSE 91; RESP 20; O2SAT 97
== END 2024-06-12 12:33 | disposition home or self-care (01) ==
PROVIDERS: Emergency Provider Emergency Medicine; PCP Physician Assistant
DX: R11.2 Nausea with vomiting, unspecified (principal); R51.9 Headache, unspecified; I10 Essential (primary) hypertension; F17.210 Nicotine dependence, cigarettes, uncomplicated
CPT/HCPCS: 80053; 83690; 96361; 96374; 99284; 83735; 85025; J2405

== ENCOUNTER 2024-07-29 11:46 | Emergency (ER) | payer MEDICAID, SELFPAY ==
[2024-07-29] VITALS (40 sets, daily range): BP systolic 151–190; BP diastolic 74–108; PULSE 57–94; RESP 12–22; TEMP 36.7; O2SAT 95–100
--- NOTE | 2024-07-29 11:45 | DI.RAD_ITS ---
Exam(s) XR CHEST 2V PA LATERAL EXAM: XR CHEST 2V PA LATERAL CLINICAL HISTORY: Chest pain TECHNIQUE: 2D digital imaging was performed. Two views. COMPARISON: CR CHEST 2 VIEWS PA,LAT from 07/16/2009 FINDINGS: HEART: Normal size. Aorta: Not dilated. PULMONARY VASCULATURE: Normal. MEDIASTINUM: Unremarkable. LUNGS: Clear. PLEURAL SPACE: No pleural effusion or pneumothorax. BONE:Unremarkable for age. SOFT TISSUES: Unremarkable. IMPRESSION: No acute abnormality. DATA REPOSITORY: RADIATION DOSE DELIVERED:
--- NOTE | 2024-07-29 11:45 | RT.EKG_ITS ---
APPROVED REPORT Exam: Resting ECG Reason for Exam: chest pain Patient Location: E HR:71 bpm ECG Measurements Heart Rate 71 AXIS MD 169 P 39 QRSd 86 QRS 9 QT 399 T 6 QTc 435 Conclusion Sinus rhythm...normal P axis, V-rate 60- 99
[2024-07-29 12:12] LABS: Abs Immature Grans 0.01 10^3/uL (0.0-0.06); Absolute Basophil Count 0.04 10^3/uL (0.0-0.2); Absolute Eosinophil Count 0.18 10^3/uL (0.0-0.7); Absolute Lymphocyte Count 1.86 10^3/uL (1.2-3.4); Absolute Monocyte Count 0.71 10^3/uL (0.1-0.8); Absolute Neutrophil Count 4.84 10^3/uL (1.2-6.7); Basophils % 0.5 %; Eosinophils % 2.4 %; HCT 47.6 % (40.0-50.0); HGB 16.9 g/dL (13.5-17.5); Immature Grans % 0.1 %; Lymphocytes % 24.3 %; MCH 30.9 pg (27.0-33.0); MCHC 35.5 % (32.0-36.0); MCV 87 fL (80-95); MPV 11.2 fL (8.0-11.0); Monocytes % 9.3 %; Neutrophils % 63.4 %; Platelet Count 174 10^3/uL (130-400); RBC 5.47 10^6/uL (4.36-5.78); RDW 12.3 % (11.8-14.1); RDW-SD 39.6 fL; WBC 7.64 10^3/uL (4.4-10.8)
--- NOTE | 2024-07-29 12:15 | DI.CT_ITS ---
Exam(s) CT THORAX ABD/PEL CTA EXAM: CT THORAX ABD/PEL CTA CLINICAL HISTORY: pain in right central chest, hypertensive. TECHNIQUE: Imaging Protocol: Axial CT angiography was performed with multi-slice acquisition and m ulti-planar and/or 3D reconstructions. CONTRAST MATERIAL: Intravenous: Omnipaque 350 Contrast volume:100 ml Oral: no COMPARISON: CT CT ABDOMEN PELVIS W from 09/12/2019 FINDINGS: CHEST: Pulmonary Arteries: No evidence of filling defect to suggest pulmonary emboli. Tracheobronchial tree: Patent where visualized. Mediastinum and Leigh: No dominant adenopathy or fluid collection. Pulmonary parenchyma: No consolidation or dominant measurable mass. No architectural distortion. Pleura: No effusion or pneumothorax. Heart: The heart is not dilated. No coronary artery calcifications are seen. Aorta: The ascending aorta is dilated to 4.5 cm. Descending aorta is normal caliber. No visible ath erosclerotic plaque. Calcifications at the aortic valve. Bones: Normal. Tubes, Catheters, and Lines: ABDOMEN AND PELVIS: Abdomen: Celiac axis/mesenteric arteries: No evidence of occlusion or significant stenosis. Renal Arteries: No evidence of occlusion or significant stenosis. There is a single renal artery per fusing each kidney. Aorta: No evidence of occlusion or significant stenosis. No aneurysm or dissection. Mild atheros clerotic changes. Pelvis: Iliac Arteries: No evidence of occlusion or significant stenosis. Common Femoral Arteries: No evidence of occlusion or significant stenosis. ABDOMEN: Liver: Normal density. No measurable mass. Portal, Superior Mesenteric, and Splenic Veins: Unremarkable. Gallbladder and Biliary Tract: No radiodense calculus or dilation. Pancreas: Normal density, no abnormal calcifications or inflammatory process. Spleen: Normal. Adrenals: No masses seen. Kidneys: Normal size, contour and axis. No radiodense stones or obstructive uropathy. No masses seen. Bowel: No obstruction or bowel wall thickening. Appendix is unremarkable. Peritoneal Cavity: No ascites, collection or mesenteric inflammatory response. Lymph Nodes: Within normal limits. Bones: Unremarkable. Soft Tissues: Unremarkable. PELVIS: Bladder: Symmetric distention, no gross wall thickening. Reproductive Organs: Unremarkable as visualized. Lymph Nodes: Within normal limits. Bones: Within normal limits. IMPRESSION: Ascending aorta is dilated to 4.5 cm. There is calcifications at the aortic valve. No evidence of d issection. No visible pulmonary emboli. No acute abnormality in the abdomen or pelvis. The preliminary [facility] report was reviewed. RADIATION DOSE DELIVERED: Total DLP DATA REPOSITORY: All CT scans at this facility are submitted to the National Radiology Data Registry (NRDR) Dose Index Registry (DIR) with the [employer] (ACR). RADIATION OPTIMIZATION: All CT scans at this facility use at least one of these dose optimization te chniques: automated exposure control; mA and/or kV adjustment per patient size (includes targeted exa ms where dose is matched to clinical indication); or iterative reconstruction.
--- NOTE | 2024-07-29 12:20 | W.ED.GENAD ---
Discharge Plan Disposition Patient Disposition: Admit to [facility] Condition: Serious Discharge Details Clinical Impression: Thoracic aortic aneurysm, Hypertension Primary Care Provider: Clinton Cruz ED Provider: Charbel Randall Home Meds and New Rx's Prescriptions: No Action metoprolol succinate 50 mg tablet extended release 24 hr 50 mg PO DAILY Patient Comments: TAKE ONE TABLET BY MOUTH EVERY DAY allopurinol 100 mg tablet 100 mg PO DAILY Patient Comments: TAKE ONE TABLET BY MOUTH EVERY DAY omeprazole 20 mg capsule,delayed release(DR/EC) 20 mg PO DAILY Patient Comments: has not taken in 4 days 07/29 valsartan 160 mg tablet 160 mg PO DAILY Patient Comments: TAKE ONE TABLET BY MOUTH EVERY DAY hydrochlorothiazide 12.5 mg tablet 12.5 mg PO DAILY Patient Comments: TAKE ONE TABLET BY MOUTH EVERY DAY lisinopril 5 mg tablet 5 mg PO DAILY Patient Comments: Has not taken in 4 days 07/29 spironolactone 50 mg Tablet 50 mg PO DAILY HPI General Mode of arrival: EMS. Date/Time Provider Initiated Documentation: 07/29/24 11:47. Limitations to Documentation: no limitations. Information obtained by: patient. HPI Narrative: HISTORY OF PRESENT ILLNESS The patient presents with chest discomfort, which began at 2300 hours last night, localized to the right anterior chest. The pain has been intermittent and is improving. No history of cardiac disease, but has a heart murmur. Reports intermittent numbness and tingling in fingers. Noncompliant with antihypertensive medication for one month. No edema, rashes, nausea, or vomiting. Attributes symptoms to gastroesophageal reflux disease, previously experienced, but cannot recall medication name. Typically experiences symptom relief for two days post-medication. Two doses of nitroglycerin provided some relief. History of hypertension and significant smoking since age 6. Related Data Home Medications ?Medication ?Instructions ?Recorded ?Confirmed spironolactone 50 mg tablet 50 mg PO DAILY 04/23/20 07/29/24 allopurinol 100 mg tablet 100 mg PO DAILY 06/12/24 07/29/24 hydrochlorothiazide 12.5 mg tablet 12.5 mg PO DAILY 06/12/24 07/29/24 metoprolol succinate 50 mg 50 mg PO DAILY 06/12/24 07/29/24 tablet,extended release 24 hr omeprazole 20 mg capsule,delayed 20 mg PO DAILY 06/12/24 07/29/24 release valsartan 160 mg tablet 160 mg PO DAILY 06/12/24 07/29/24 lisinopril 5 mg tablet 5 mg PO DAILY 07/29/24 07/29/24 Allergies Allergy/AdvReac Type Severity Reaction Status Date / Time No Known Allergies Allergy Verified 07/29/24 11:58 General Stated Complaint: Chest Pain KARL: 3 Review of Systems All systems reviewed & are unremarkable except as noted in HPI and below Constitutional Constitutional: Denies fever(s) Exam Const General: cooperative and no acute distress HENMT Mouth: moist mucous membranes Eyes Conjunctivae: normal conjunctivae Sclera: normal sclerae Neck Neck: trachea midline and supple Resp Auscultation: clear to auscultation bilaterally, no rales, no rhonchi and no wheezes Cardio Rate: regular rate and not tachycardic Rhythm: regular rhythm Heart Sounds: S1 normal, S2 normal and murmur systolic II/ GI Palpation: soft, not firm, no guarding, no masses, not rigid and nontender Skin General skin exam: no rashes or lesions noted Neuro General: patient alert, patient awake, patient oriented x3 and tone normal Extrem General: no calf tenderness and no edema Course Vital Signs Vital signs: Vital Signs Temperature 36.7 C 07/29/24 11:47 Pulse 78 07/29/24 11:47 Respiratory Rate 16 07/29/24 11:47 Blood Pressure 190/89 H 07/29/24 11:47 Pulse Oximetry 97 07/29/24 11:47 Temperature 36.7 C 07/29/24 11:47 Temperature Source Oral 07/29/24 11:47 Pulse 78 07/29/24 11:47 Respiratory Rate 20 07/29/24 12:11 Respiratory Effort Normal 07/29/24 12:11 Respiratory Depth Normal 07/29/24 12:11 Respiratory Pattern Normal 07/29/24 12:11 Blood Pressure 190/89 H 07/29/24 11:47 Blood Pressure Position Sitting 07/29/24 11:47 Pulse Oximetry 97 07/29/24 11:47 Oxygen Delivery Method Nasal Cannula 07/29/24 11:47 Oxygen Flow Rate 1 07/29/24 11:47 Pain Level 4 07/29/24 11:47 Lab/Test Results Lab/Test Results: Laboratory Tests Range/Units 07/29/24 12:00 WBC (4.4-10.8) 10^3/uL 7.64 RBC (4.36-5.78) 10^6/uL 5.47 Hgb (13.5-17.5) g/dL 16.9 Hct (40.0-50.0) % 47.6 MCV (80-95) fL 87 MCH (27.0-33.0) pg 30.9 MCHC (32.0-36.0) % 35.5 RDW (11.8-14.1) % 12.3 Plt Count (130-400) 10^3/uL 174 MPV (8.0-11.0) fL 11.2 H Immature Gran % % 0.1 Neutrophils % % 63.4 Lymphocytes % % 24.3 Monocytes % % 9.3 Eosinophils % % 2.4 Basophils % % 0.5 Nucleated RBC % (0.0-0.3) % 0.0 Absolute Neutrophils (1.2-6.7) 10^3/uL 4.84 Absolute Lymphocytes (1.2-3.4) 10^3/uL 1.86 Absolute Monocytes (0.1-0.8) 10^3/uL 0.71 Absolute Eosinophils (0.0-0.7) 10^3/uL 0.18 Absolute Basophils (0.0-0.2) 10^3/uL 0.04 Medical Decision Making ASSESSMENT AND PLAN Initial Assessment: Patient presents with chest discomfort starting last night at 2300 hours, located in the right anterior chest. History of hypertension, noncompliant with medication for one month. History of acid reflux, takes medication but cannot recall name. ED Course: - CTA to rule out dissection. - Blood work to check for cardiac issues or major vessel problems. - EKG reviewed and interpreted by me: Sinus rhythm 71 bpm, no STEMI. Please see report. - Labs reviewed: Initial troponin negative. Delta troponin negative at 1 hour. -Patient reassessed after Pepcid and feeling better. Pain resolved. - CTA of the thorax, abdomen pelvis interpreted by radiology: No evidence of pulmonary embolism to the segmental level. Unruptured aneurysm of the ascending aorta 4.3 x 4.2 cm. Patient will require outpatient follow-up with cardiothoracic surgery. - Patient is a poor historian and unable to provide history regarding prior antihypertensive regiment. It is unclear from his medical record what he has been prescribed. Pharmacy is closed. His primary care physician office is also closed. I called and spoke with the shelter medical staff who note that the patient's blood pressure has been significantly elevated on weekly checks but that medication has not been adjusted. Patient has been noncompliant with antihypertensives. Patient has been persistently hypertensive here as high as 190/89. Plan to initiate treatment with metoprolol 50 mg daily and valsartan 80 mg daily. Goal blood pressure is systolic less than 130. Patient also advised to avoid fluoroquinolones. Final Assessment: 44-year-old male with history of GERD, murmur, hypertension, here with right-sided chest discomfort, resolved after Pepcid. CT of the chest ruled out dissection but patient does have thoracic aortic aneurysm. Patient with poorly controlled hypertension. Clinical Impression: - Right sided chest discomfort - Hypertension, noncompliant with antihypertensives - Aneurysm of the ascending aorta Disposition: - Admit for blood pressure control and monitor chest pain MDM Components Evaluation: - Number of Differential Diagnoses or Management Options: Dissection, cardiac issues, major vessel problems - Amount and Complexity of Data Reviewed: CTA, blood work, EKG - Risk of Complication and Morbidity or Mortality: High due to chest discomfort and history of hypertension This document was written with the assistance of VANDANA Zamarripa. The patient consented to its use. Quality:SDOH Health Related Social Needs: No Data to Display PFSH All Active Problems (Updated 07/29/24 @ 15:13 by Charbel Randall MD) Hypertension (Chronic) Thoracic aortic aneurysm (Acute) Nausea and vomiting (Acute) Gout of left ankle (Acute) Medical History Tobacco use Back pain Depression Murmur Sleep apnea GERD (gastroesophageal reflux disease) Hypertension Asthma Social History Smoking/Tobacco Use Status: Current every day Tobacco Type: cigarettes Tobacco: How many years used: 25 Smoking risk assessment performed?: Yes Alcohol Intake: current Alcohol Intake frequency: holidays/special occasions only Drug use: Daily Substance use type: marijuana Housing: homeless current occupation: N/A What type of physical activity do you participate in: independent ambulation Do you feel safe at home: Yes Do you feel safe in your relationship?: Yes
[2024-07-29 12:27] LABS: ALT 32 U/L (16-63); AST 25 U/L (15-37); Albumin 3.7 g/dL (3.4-5.0); Alkaline Phosphatase 87 U/L (46-116); Anion Gap 8.2 mmol/L (3-11); BUN 15 mg/dL (7-18); Bilirubin, Total 0.3 mg/dL (0.2-1.0); CO2 28.8 mmol/L (21.0-32.0); CREATININE 0.8 mg/dL (0.70-1.30); Calcium 9.3 mg/dL (8.5-10.1); Chloride 102 mmol/L (98-107); Estimated GFR 112.61 (mL/min/1.73m2); Glucose 104 mg/dL (74-106); Potassium 3.6 mmol/L (3.5-5.1); Sodium 139 mmol/L (136-145); Total Protein 7.5 g/dL (6.4-8.2); Troponin I 44 ng/L (<or=76)
[2024-07-29 12:36] LABS: D-Dimer 368 ng/mlFEU (<500)
[2024-07-29] MEDS: Omnipaque 350 MG/ML 100 ML BTL IJ (12:47)
[2024-07-29] MEDS: Omnipaque 350 MG/ML 50 ML BTL IJ (12:48)
[2024-07-29] MEDS: Normal Saline - Diluent 50 ML VIAL IJ (12:50)
--- NOTE | 2024-07-29 13:04 | DI.VRAD_ITS ---
PROCEDURE INFORMATION: Exam: XR Chest Exam date and time: 07/29/2024 12:26 PM Age: 44 years old Clinical indication: Pain; Chest pressure TECHNIQUE: Imaging protocol: Radiologic exam of the chest. Views: 2 views. COMPARISON: CR XR SHOULDER LT COMPLETE 2+V 03/01/2023 1:28 PM FINDINGS: Lungs: Unremarkable. No consolidation. Pleural spaces: Unremarkable. No pleural effusion. No pneumothorax. Heart/Mediastinum: Unremarkable. No cardiomegaly. Bones/joints: Unremarkable. IMPRESSION: No acute findings. Dictated and Authenticated by: Rizwan Brown MD. Orderin Tonia Barger MD
--- NOTE | 2024-07-29 13:08 | DI.VRAD_ITS ---
PROCEDURE INFORMATION: Exam: CTA Chest With Contrast CTA Abdomen and Pelvis With Contrast Exam date and time: 07/29/2024 12:38 PM Age: 44 years old Clinical indication: Other: Pain in right central chest, hypertensive TECHNIQUE: Imaging protocol: Computed tomographic angiography of the chest with contrast. Exam focused on the arteries. Computed tomographic angiography of the abdomen and pelvis with contrast. Exam focused on the arteries. 3D rendering (Not supervised by radiologist): MIP and/or 3D reconstructed images were created by the technologist. Radiation optimization: All CT scans at this facility use at least one of these dose optimization techniques: automated exposure control; mA and/or kV adjustment per patient size (includes targeted exams where dose is matched to clinical indication); or iterative reconstruction. Contrast material: OMNI 350; Contrast volume: 150 ml; Contrast route: INTRAVENOUS (IV); COMPARISON: CR XR CHEST 2V PA LATERAL 07/29/2024 12:26 PM FINDINGS: VASCULATURE: Pulmonary arteries: No evidence of pulmonary embolus to the segmental level. Aorta: Unruptured aneurysm of the ascending aorta 4.3 x 4.2 cm. No dissection of the aorta. Celiac trunk and mesenteric arteries: No occlusion or significant stenosis. Renal arteries: No occlusion or significant stenosis. Right iliac arteries: No occlusion or significant stenosis. Left iliac arteries: No occlusion or significant stenosis. CHEST: Lungs: Unremarkable. No consolidation. No masses. Pleural spaces: Unremarkable. No pneumothorax. No pleural effusion. Heart: Unremarkable. No cardiomegaly. No pericardial effusion. Coronary arteries: Coronary artery calcifications may indicate coronary artery disease. ABDOMEN AND PELVIS: Liver: No mass. Gallbladder and biliary ducts: Unremarkable. No calcified stones. No ductal dilation. Pancreas: Unremarkable. No mass. No ductal dilation. Spleen: Unremarkable. No splenomegaly. Adrenal glands: Unremarkable. No mass. Kidneys and ureters: There is no evidence of renal or ureteral calcifications.. No solid mass. No hydronephrosis. Stomach and bowel: Unremarkable. No obstruction. No mucosal thickening. Appendix: Normal appendix Intraperitoneal space: Unremarkable. No free air. No significant fluid collection. Urinary bladder: Unremarkable. No mass. Reproductive: Unremarkable as visualized. Lymph nodes: Unremarkable. No enlarged lymph nodes. Bones/joints: Unremarkable. No acute fracture. Soft tissues: Unremarkable. IMPRESSION: 1. No evidence of pulmonary embolus to the segmental level. 2. Unruptured aneurysm of the ascending aorta 4.3 x 4.2 cm. Dictated and Authenticated by: Rizwan Brown MD. Orderin Tonia Barger MD
[2024-07-29 13:25] LABS: Troponin I 48 ng/L (<or=76)
[2024-07-29] MEDS: Famotidine 20 MG/2 ML VIAL IVP (13:29)
[2024-07-29] MEDS: Metoprolol CR 50 MG TABCR PO (15:21)
[2024-07-29] MEDS: Valsartan 80 MG TAB PO (15:25)
[2024-07-29 15:30] LABS: Troponin I 52 ng/L (<or=76)
--- NOTE | 2024-07-29 15:58 | HPE_ITS ---
Date of service: 07/29/24 Time of Service: 15:58 Assessment and Plan Assessment and plan (1) Chest pain: Status: Acute Assessment and plan: Resolved prior to admission most likely due to GERD Telemetry We will continue to monitor Troponin in a.m. (2) Hypertension: Status: Chronic Assessment and plan: Hypertension initially controlled as per ED Continue continue oral antihypertensive therapy listed on last PCP note with valsartan, metoprolol, hydrochlorothiazide, and spironolactone Will add Norvasc and adjust as needed (3) Thoracic aortic aneurysm: Status: Acute Assessment and plan: As per [facility] Outpatient cardiovascular follow-up required (4) Tobacco use: Assessment and plan: NRT inpatient (5) Asthma: Assessment and plan: As needed nebs (6) GERD (gastroesophageal reflux disease): Assessment and plan: Pepcid twice daily (7) On deep vein thrombosis (DVT) prophylaxis: Status: Acute Assessment and plan: Lovenox Discussed with Dr. Jaramillo History of Present Illness History of Present Illness Chief Complaint: Chest pain Narrative: The patient is a morbidly obese, recently incarcerated 44 yo male wtih PMHx of nicotine dependence, uncontrolled HNT and non-compliance to anti-hypertensive therapy who presented to the ED for evaluation of chest discomfort, which began at 2300 hours last night, localized to the right anterior chest.Pain described as intermittent and improving. No history of cardiac disease, but positive for heart murmur. Initially Reported intermittent numbness and tingling in fingers- resolved when seen. Linked his symptoms to gastroesophageal reflux disease, that he previously experienced, but cannot recall medication name taking for treatment. Partial relief s/p 2 doses of of nitroglycerin. No further symptoms s/p IV famotidine . Workup in the ED showed an unruptured aneurysm of the ascending aorta 4.3 x 4.2 cm as per CTA of the thorax abdomen pelvis interpreted by radiology; negative for pulmonary embolism. Patient will require outpatient follow-up with cardiothoracic surgery.EKG reviewed and interpreted by Dr Randall in the ED was negative for STEMI, serial troponins are negative max at 52. The skilled nursing medical staff reported that the patient's blood pressure has been significantly elevated on weekly checks without medication adjustment. The patient was admitted to the medical surgical floor for HTN treatment and further monitoring but he hospitalist team. When met the patient reported resolution of symptoms without other symptomatology prior to presentation or at the time. Reported that he is a DNR/DNI. Despite educating patient regarding risk of aneurysm progression, ruptue and , the patient is insistent on leaving the hospital AGAINST MEDICAL ADVICE. Returning to the correctional facility. Review of Systems All systems reviewed & are unremarkable except as noted in HPI and below PFSH All Active Problems (Updated 07/29/24 @ 16:14 by Michelle Dial APRN) On deep vein thrombosis (DVT) prophylaxis (Acute) Aortic aneurysm (Chronic) Chest pain (Acute) Hypertension (Chronic) Thoracic aortic aneurysm (Acute) Nausea and vomiting (Acute) Gout of left ankle (Acute) Medical History Tobacco use Back pain Depression Murmur Sleep apnea GERD (gastroesophageal reflux disease) Hypertension Asthma Social History Smoking/Tobacco Use Status: Current every day Tobacco Type: cigarettes Tobacco: How many years used: 25 Smoking risk assessment performed?: Yes Alcohol Intake: current Alcohol Intake frequency: holidays/special occasions only Drug use: Daily Substance use type: marijuana Housing: homeless current occupation: N/A What type of physical activity do you participate in: independent ambulation Do you feel safe at home: Yes Do you feel safe in your relationship?: Yes Meds Allergies and Home Medications Allergies Allergy/AdvReac Type Severity Reaction Status Date / Time No Known Allergies Allergy Verified 07/29/24 11:58 Home Medications ?Medication ?Instructions ?Recorded ?Confirmed ?Type spironolactone 50 mg tablet 50 mg PO DAILY 04/23/20 07/29/24 History allopurinol 100 mg tablet 100 mg PO DAILY 06/12/24 07/29/24 History hydrochlorothiazide 12.5 mg tablet 12.5 mg PO DAILY 06/12/24 07/29/24 History metoprolol succinate 50 mg 50 mg PO DAILY 06/12/24 07/29/24 History tablet,extended release 24 hr omeprazole 20 mg capsule,delayed 20 mg PO DAILY 06/12/24 07/29/24 History release valsartan 160 mg tablet 160 mg PO DAILY 06/12/24 07/29/24 History lisinopril 5 mg tablet 5 mg PO DAILY 07/29/24 07/29/24 History Exam Narrative Exam Narrative: Morbidly obese appearing gentleman without acute distress, no focal neurological deficit, moves all 4 extremities, holosystolic murmur, positive pulses all 4 extremities, no cyanosis, abdomen is obese nondistended, soft nontender, no CVA tenderness, no back pain/tenderness. Results Labs 07/29/24 12:00 07/29/24 12:00 Labs: Laboratory Results - last 24 hr 07/29/24 07/29/24 07/29/24 12:00 13:01 15:01 WBC 7.64 RBC 5.47 Hgb 16.9 Hct 47.6 MCV 87 MCH 30.9 MCHC 35.5 RDW 12.3 Plt Count 174 MPV 11.2 H Immature Gran % 0.1 Neutrophils % 63.4 Lymphocytes % 24.3 Monocytes % 9.3 Eosinophils % 2.4 Basophils % 0.5 Nucleated RBC % 0.0 Absolute Neutrophils 4.84 Absolute Lymphocytes 1.86 Absolute Monocytes 0.71 Absolute Eosinophils 0.18 Absolute Basophils 0.04 D-Dimer 368 Sodium 139 Potassium 3.6 Chloride 102 Carbon Dioxide 28.8 Anion Gap 8.2 BUN 15 Creatinine 0.8 Est GFR (CKD-EPI 2020) 112.61 Glucose 104 Calcium 9.3 Magnesium 2.0 Total Bilirubin 0.3 AST 25 ALT 32 Alkaline Phosphatase 87 Troponin I 44 48 52 Total Protein 7.5 Albumin 3.7 Last Vital Signs Temp 36.7 C 07/29/24 11:47 Pulse 63 07/29/24 15:31 Resp 22 07/29/24 15:31 BP 153/92 H 07/29/24 15:31 Pulse Ox 98 07/29/24 15:31 Time Spent Time spent with Patient: >75 minutes Time was spent: preparing to see the patient(eg.review tests), obtaining and/or reviewing separately otained hiistory, ordering medications,tests, procedures, referring, communicating with other health day care center director, indepentently interpreting results, counseling the patient and care coordination
--- NOTE | 2024-07-29 17:32 | DSE_ITS ---
Date of service: 07/29/24 Time of Service: 17:32 DS: Diagnosis Discharge Diagnosis (1) Chest pain: Status: Acute (2) Hypertension: Status: Chronic (3) Thoracic aortic aneurysm: Status: Acute (4) Tobacco use: (5) Asthma: (6) GERD (gastroesophageal reflux disease): (7) On deep vein thrombosis (DVT) prophylaxis: Status: Acute Discharge Plan Disposition Patient Disposition: [facility] Condition: Serious Discharge Details Clinical Impression: Thoracic aortic aneurysm, Hypertension, Aortic aneurysm Primary Care Provider: Clinton Cruz ED Provider: Charbel Randall Home Meds and New Rx's Prescriptions: New amlodipine [Norvasc] 5 mg tablet 5 mg PO BID Qty: 60 0RF famotidine [Pepcid] 20 mg tablet 20 mg PO BID Qty: 60 0RF No Action metoprolol succinate 50 mg tablet extended release 24 hr 50 mg PO DAILY Patient Comments: TAKE ONE TABLET BY MOUTH EVERY DAY allopurinol 100 mg tablet 100 mg PO DAILY Patient Comments: TAKE ONE TABLET BY MOUTH EVERY DAY omeprazole 20 mg capsule,delayed release(DR/EC) 20 mg PO DAILY Patient Comments: has not taken in 4 days 07/29 valsartan 160 mg tablet 160 mg PO DAILY Patient Comments: TAKE ONE TABLET BY MOUTH EVERY DAY hydrochlorothiazide 12.5 mg tablet 12.5 mg PO DAILY Patient Comments: TAKE ONE TABLET BY MOUTH EVERY DAY lisinopril 5 mg tablet 5 mg PO DAILY Patient Comments: Has not taken in 4 days 07/29 spironolactone 50 mg Tablet 50 mg PO DAILY Discharge Instructions Instructions: Thoracic aortic aneurysm Referrals: Clinton Cruz [Primary Care Provider] - (F/u with outpatient provider within 7 days of discharge or as current living facility policy.) Discharge Data Discharge Physician: Michelle Dial DS: Summary Time Spent with Patient providing and/or coordinating discharge services: Greater than 30 minutes Status at Discharge Functional status at discharge: independent ambulation Overall status at discharge: patient is not back to baseline Mental Status: mental status grossly normal Speech and Movement: speech and movement normal Mood: irritable mood Affect: irritable affect Quality:SDOH Health Related Social Needs: Health related social needs details too large Health related social needs details: The patient is a morbidly obese, recently incarcerated 44 yo male wtih PMHx of nicotine dependence, uncontrolled HNT and non-compliance to anti-hypertensive therapy who presented to the ED for evaluation of chest discomfort, which began at 2300 hours last night, localized to the right anterior chest. Pain described as intermittent and improving. No history of cardiac disease, but positive for heart murmur. Initially Reported intermittent numbness and tingling in fingers- resolved when seen. Linked his symptoms to gastroesophageal reflux disease, that he previously experienced, but cannot recall medication name taking for treatment. Partial relief s/p 2 doses of of nitroglycerin. No further symptoms s/p IV famotidine . Workup in the ED showed an unruptured aneurysm of the ascending aorta 4.3 x 4.2 cm as per CTA of the thorax abdomen pelvis interpreted by radiology; negative for pulmonary embolism. Patient will require outpatient follow-up with cardiothoracic surgery. EKG reviewed and interpreted by Dr Randall in the ED was negative for STEMI, serial troponins are negative max at 52. [facility] reported that the patient's blood pressure has been significantly elevated on weekly checks without medication adjustment. The patient was admitted to the medical surgical floor for HTN treatment and further monitoring but he hospitalist team. When met the patient reported resolution of symptoms without other symptomatology prior to presentation or at the time. Reported that he is a DNR/DNI. Despite educating patient regarding risk of aneurysm progression, rupture and , the patient is insistent on leaving the hospital AGAINST MEDICAL ADVICE. Patient is Legally allowed to do so. Returning to the correctional facility. Patient to continue regimen with anti-hypertensive as per RN APPEALS as listed on records. Norvasc BID added. Prevent hypertensive urgency as per SBP/DPB after oral medicine administration (> 180/ > 110) know criteria or signs of end organ damage/hypoperfusion. Discussed with Dr Jaramillo Referrals and interventions: Cardiovascular follow-up needed for new aortic aneurysm as per CTA Exam Narrative Exam Narrative: Morbidly obese appearing gentleman without acute distress, no focal neurological deficit, moves all 4 extremities, holosystolic murmur, positive pulses all 4 extremities, no cyanosis, abdomen is obese nondistended, soft nontender, no CVA tenderness, no back pain/tenderness. Psych Mental Status: mental status grossly normal Speech and Movement: speech and movement normal Mood: irritable mood Affect: irritable affect DS: Data Vitals/I&O Vitals and I&O: Vital Signs Temperature 36.7 C 07/29/24 11:47 Temperature Source Oral 07/29/24 11:47 Pulse 68 07/29/24 16:20 Pulse 71 07/29/24 16:30 Respiratory Rate 18 07/29/24 16:30 Respiratory Effort Normal 07/29/24 12:11 Respiratory Depth Normal 07/29/24 12:11 Respiratory Pattern Normal 07/29/24 12:11 Blood Pressure 189/108 H 07/29/24 16:09 Blood Pressure Mean 137 07/29/24 16:09 Blood Pressure Position Sitting 07/29/24 11:47 Pulse Oximetry 98 07/29/24 16:20 Oxygen Delivery Method Nasal Cannula 07/29/24 11:47 Oxygen Flow Rate 1 07/29/24 11:47 Pain Level 4 07/29/24 11:47 Intake & Output 07/28/24 07/29/24 07/29/24 23:59 11:59 23:59 Intake Total Balance Weight 138.799 kg Intake: IV Data Completed and Pending Labs on day of discharge: Labs from last 24 hours 07/29/24 07/29/24 07/29/24 15:01 13:01 12:00 WBC 7.64 RBC 5.47 Hgb 16.9 Hct 47.6 MCV 87 MCH 30.9 MCHC 35.5 RDW 12.3 Plt Count 174 MPV 11.2 H Immature Gran % 0.1 Neutrophils % 63.4 Lymphocytes % 24.3 Monocytes % 9.3 Eosinophils % 2.4 Basophils % 0.5 Nucleated RBC % 0.0 Absolute Neutrophils 4.84 Absolute Lymphocytes 1.86 Absolute Monocytes 0.71 Absolute Eosinophils 0.18 Absolute Basophils 0.04 D-Dimer 368 Sodium 139 Potassium 3.6 Chloride 102 Carbon Dioxide 28.8 Anion Gap 8.2 BUN 15 Creatinine 0.8 Est GFR (CKD-EPI 2020) 112.61 Glucose 104 Calcium 9.3 Magnesium 2.0 Total Bilirubin 0.3 AST 25 ALT 32 Alkaline Phosphatase 87 Troponin I 52 48 44 Total Protein 7.5 Albumin 3.7 PFSH All Active Problems (Updated 07/29/24 @ 18:56 by Michelle Dial APRN) On deep vein thrombosis (DVT) prophylaxis (Acute) Aortic aneurysm (Chronic) Chest pain (Acute) Hypertension (Chronic) Thoracic aortic aneurysm (Acute) Nausea and vomiting (Acute) Gout of left ankle (Acute) Medical History Tobacco use Back pain Depression Murmur Sleep apnea GERD (gastroesophageal reflux disease) Hypertension Asthma Social History Smoking/Tobacco Use Status: Current every day Tobacco Type: cigarettes Tobacco: How many years used: 25 Smoking risk assessment performed?: Yes Alcohol Intake: current Alcohol Intake frequency: holidays/special occasions only Drug use: Daily Substance use type: marijuana Housing: homeless current occupation: N/A What type of physical activity do you participate in: independent ambulation Do you feel safe at home: Yes Do you feel safe in your relationship?: Yes Time Spent with Patient Time Spent with Patient: 70-84 minutes4 Time was spent: preparing to see the patient(eg.review tests), obtaining and/or reviewing separately otained hiistory, ordering medications,tests, procedures, referring, communicating with other health career guidance technician, indepentently interpreting results, counseling the patient and care coordination
== END 2024-07-29 20:16 ==
PROVIDERS: Emergency Provider Student in an Organized Health Care Education/Training Program; PCP Physician Assistant
DX: R07.9 Chest pain, unspecified (principal); I71.20 Thoracic aortic aneurysm, without rupture, unspecified; I10 Essential (primary) hypertension; T46.5X6A Underdosing of other antihypertensive drugs, initial encounter; F17.210 Nicotine dependence, cigarettes, uncomplicated; Z91.148 Patient's other noncompliance with medication regimen for other reason; Z59.00 Homelessness unspecified
CPT/HCPCS: 00123; 71275; 80053; 93005; 96374; 99285; 71046; 74174; 83735; 84484; 85025; 85379; 93010; J3490; Q9967

== ENCOUNTER 2024-07-30 07:48 | Observation (INO) | payer OTHER, SELFPAY ==
[2024-07-30] VITALS (51 sets, daily range): BP systolic 127–196; BP diastolic 62–107; PULSE 55–87; RESP 11–26; TEMP 36.5–36.7; O2SAT 95–99
--- NOTE | 2024-07-30 07:45 | DI.RAD_ITS ---
Exam(s) XR PORTABLE CHEST AP EXAM: XR PORTABLE CHEST AP CLINICAL HISTORY: Chest pain. TECHNIQUE: 2D digital imaging was performed. COMPARISON: CR,XR XR CHEST 2V PA LATERAL from 07/29/[address] THORAX ABD/PEL CTA from 07/29/2024 FINDINGS: Single AP portable view. Heart size is upper normal. The mediastinum is not widened. Lungs are clear. No infiltrates nor obvious pleural effusions. IMPRESSION: No acute pulmonary findings on this single AP portable view of the chest. DATA REPOSITORY: RADIATION DOSE DELIVERED:
--- NOTE | 2024-07-30 07:45 | RT.EKG_ITS ---
APPROVED REPORT Exam: Resting ECG Reason for Exam: Chest Pain Patient Location: E HR:64 bpm ECG Measurements Heart Rate 64 AXIS CO 169 P 39 QRSd 84 QRS 8 QT 398 T [id number] QTc 410 Conclusion Sinus rhythm...normal P axis, V-rate 60- 99 Nonspecific T abnormalities, inferior leads...T <-0.10mV, II III aVF No Occlusion FL
--- NOTE | 2024-07-30 07:47 | W.ED.GENAD ---
Discharge Plan Disposition Patient Disposition: Admit to [facility] Discharge Details Clinical Impression: Holosystolic murmur, Thoracic aortic aneurysm, Aortic calcification Admit Date/Time: 07/30/24 12:03 Admit Provider: Clayton Jaramillo Attending Provider: Clayton Jaramillo Primary Care Provider: Clinton Cruz ED Provider: Clayton Pierre HPI General Date/Time Provider Initiated Documentation: 07/30/24 08:09. HPI Narrative: MDM This is an overall well-appearing mildly hypertensive normothermic and not tachycardic 44-year-old male with history of ascending aortic aneurysm with chest pain for which patient will undergo troponin testing to assess for ACS. Will defer repeat CT angiogram as patient is not hypotensive nor any extremis and my suspicion is low for dissection. No pain out of proportion to suggest necrotizing soft tissue infection. Patient did complain of some shortness of breath and is low risk for PE so we will obtain a D-dimer to risk stratify. No rash to chest to suggest zoster. Not hypotensive nor dialysis patient making my suspicion low for cardiac tamponade and patient had no effusion at bedside echocardiogram. Anticipate patient will require hospitalization for formal echocardiogram and monitoring. Equal breath sounds and no trauma so doubt pneumothorax. Patient not been vomiting to suggest increased risk for esophageal rupture. No right upper quadrant pain to suggest increased history of acute cholecystitis. 10:45 AM I was in touch with Dr. Ochoa from cardiothoracic at [facility]. He felt that the patient had significant aortic calcifications. He advised that this had progressed in the past several years. He was concerned that the patient may have a calcified aortic valve. He advised hospitalization for echocardiogram. He also advised close cardiology follow-up. 2:15 PM I was in touch with Dr. Jaramillo who graciously agreed to accept the patient for hospitalization. Chronic conditions affecting the care of the patient: Hypertension elevated BMI History obtained from an outside historian: N/A External record review: N/A Diagnostic interpretations performed by me: Per my independent interpretation chest x-ray shows: Per my independent interpretation EKG shows: Narrow complex normal sinus rhythm at a rate of 64. Normal axis. Intervals within normal limits. No ST segment abnormalities. T wave flattening in aVL and aVF. Appears similar to prior dated yesterday. ]Medications: Prehospital aspirin nitroglycerin Social determinants of health affecting disposition: Incarcerated Management discussed with: Hospitalist Treatment/interventions considered: N/A Response to therapies provided: [] HPI The patient presents for evaluation of chest pain. He began experiencing chest discomfort yesterday, characterized by a sensation of tightness on the left side of his chest. The pain is exacerbated by movement and alleviated by rest. He has not taken his prescribed medications today. He was administered nitroglycerin during his hospital stay, which provided some relief. He reports no recent fevers or skin rashes on his chest. He has a cough but does not have any abdominal pain or episodes of vomiting. He was scheduled for hospital admission yesterday but discharged himself as the pain was not significantly bothersome at that time. He also endorses shortness of breath. He never had a PE nor DVT. Exam General: Well-appearing in no acute distress speaking in complete sentences. Head: Normocephalic, atraumatic. Eye: Extraocular eye movements intact. No conjunctival injection. No scleral icterus. Ear, nose, mouth, throat: Grossly normal inspection. Normal voice, handling secretions normally. Neck: Trachea midline. Cardiovascular: Well-perfused distal extremities. Regular rate rhythm systolic ejection murmur Respiratory: Nonlabored respiration. Clear and equal breath sounds equal bilaterally. Gastrointestinal: Nondistended abdomen. Soft. Nontender. Musculoskeletal: No edema. Moving all 4 extremities spontaneously. Skin: Normal for age and race, grossly normal temperature and turgor. No acute rash. Neurologic: Alert and appropriate, no apparent acute deficits. Psychiatric: Mood and manner are appropriate. Grooming and personal hygiene are appropriate. Related Data Home Medications ?Medication ?Instructions ?Recorded ?Confirmed spironolactone 50 mg tablet 50 mg PO DAILY 04/23/20 07/30/24 allopurinol 100 mg tablet 100 mg PO DAILY 06/12/24 07/30/24 hydrochlorothiazide 12.5 mg tablet 12.5 mg PO DAILY 06/12/24 07/30/24 metoprolol succinate 50 mg 50 mg PO DAILY 06/12/24 07/30/24 tablet,extended release 24 hr omeprazole 20 mg capsule,delayed 20 mg PO DAILY 06/12/24 07/30/24 release valsartan 160 mg tablet 160 mg PO DAILY 06/12/24 07/30/24 amlodipine 5 mg tablet (Norvasc) 5 mg PO BID #60 tabs 07/29/24 07/30/24 famotidine 20 mg tablet (Pepcid) 20 mg PO BID #60 tabs 07/29/24 07/30/24 lisinopril 5 mg tablet 5 mg PO DAILY 07/29/24 07/30/24 Previous Rx's ?Medication ?Instructions ?Recorded amlodipine 5 mg tablet (Norvasc) 5 mg PO BID #60 tabs 07/29/24 famotidine 20 mg tablet (Pepcid) 20 mg PO BID #60 tabs 07/29/24 Allergies Allergy/AdvReac Type Severity Reaction Status Date / Time No Known Allergies Allergy Verified 07/30/24 07:54 General KARL: 3 Medical Decision Making Quality:SDOH Health Related Social Needs: Health related social needs details too large PFSH All Active Problems Aortic calcification (Acute) Holosystolic murmur (Acute) On deep vein thrombosis (DVT) prophylaxis (Acute) Aortic aneurysm (Chronic) Chest pain (Acute) Hypertension (Chronic) Thoracic aortic aneurysm (Acute) Nausea and vomiting (Acute) Gout of left ankle (Acute) Medical History Tobacco use Back pain Depression Murmur Sleep apnea GERD (gastroesophageal reflux disease) Hypertension Asthma Social History Smoking/Tobacco Use Status: Current every day Tobacco Type: cigarettes Tobacco: How many years used: 25 Smoking risk assessment performed?: Yes Alcohol Intake: current Alcohol Intake frequency: holidays/special occasions only Drug use: Daily Substance use type: marijuana Housing: homeless current occupation: N/A What type of physical activity do you participate in: independent ambulation Do you feel safe at home: Yes Do you feel safe in your relationship?: Yes POCUS Exam (ED) Limited Cardiac Exam DATE OF EXAM: 07/30/24 TIME OF EXAM: 08:15 PROVIDER THAT PERFORMED THE STUDY: Clayton Pierre IS THIS A REPEAT EXAM DURING THIS ENCOUNTER: no REASON FOR EXAM: Chest pain VISUALIZED STRUCTURES: Four Chambers and Left ventricle VIEW OBTAINED: Apical 4-Chamber, Parasternal long-axis and Subxiphoid PERTINENT FINDINGS/IMPRESSION: No pericardial effusion and No RV dilation DIFFERENTIAL DIAGNOSES: Good squeeze, RV less than LV, no significant pericardial effusion. Difficult to visualize aortic outflow tract. Exam complete
[2024-07-30 08:04] LABS: Abs Immature Grans 0.01 10^3/uL (0.0-0.06); Absolute Basophil Count 0.03 10^3/uL (0.0-0.2); Absolute Eosinophil Count 0.15 10^3/uL (0.0-0.7); Absolute Monocyte Count 0.32 10^3/uL (0.1-0.8); Absolute Neutrophil Count 3.31 10^3/uL (1.2-6.7); Basophils % 0.6 %; Eosinophils % 2.8 %; HGB 16.7 g/dL (13.5-17.5); Immature Grans % 0.2 %; Lymphocytes % 29.5 %; MCH 29.9 pg (27.0-33.0); MCHC 34.1 % (32.0-36.0); MCV 88 fL (80-95); MPV 11.1 fL (8.0-11.0); Monocytes % 5.9 %; Platelet Count 155 10^3/uL (130-400); RBC 5.59 10^6/uL (4.36-5.78); RDW 12.7 % (11.8-14.1); RDW-SD 40.8 fL; WBC 5.42 10^3/uL (4.4-10.8)
[2024-07-30] MEDS: amLODIPine 5 MG TAB PO (08:20)
[2024-07-30 08:23] LABS: Anion Gap 3.9 mmol/L (3-11); BUN 19 mg/dL (7-18); CO2 31.1 mmol/L (21.0-32.0); CREATININE 1.2 mg/dL (0.70-1.30); Calcium 9.5 mg/dL (8.5-10.1); Chloride 104 mmol/L (98-107); Estimated GFR 76.95 (mL/min/1.73m2); Glucose 188 mg/dL (74-106); Lipase 26 U/L (<78); Potassium 3.5 mmol/L (3.5-5.1); Sodium 139 mmol/L (136-145); Troponin I 33 ng/L (<or=76)
[2024-07-30 08:39] LABS: D-Dimer 419 ng/mlFEU (<500)
[2024-07-30 09:31] LABS: Troponin I 29 ng/L (<or=76)
--- NOTE | 2024-07-30 12:17 | HPE_ITS ---
Date of service: 07/30/24 Time of Service: 12:17 Assessment and Plan Assessment and plan (1) Chest pain: Status: Acute Assessment and plan: EKG and troponin again reassuring, not c/w ACS, though down trend may indicate some cardiac stress yesterday. Plan 07/29 was observation. Was considering discharge but CT surgery would like to see echo given concern for progression of aortic calcifications. (2) Thoracic aortic aneurysm: Status: Acute Assessment and plan: as above, will need CT surgery f/u (3) Aortic calcification: Status: Acute Assessment and plan: with murmur. Get echo prior to discharge. (4) Hypertension: Status: Chronic Assessment and plan: PCP notes reviewed, resumed a combination of ARB, CCB, metoprolol (given aneurysm). and spironolactone. At discharge, could simplify with long acting ARB/CCB combination (olmesartan/amlodipine). He doesn't want to take thiazide. (5) DVT prophylaxis: Status: Acute Assessment and plan: enoxaparin History of Present Illness Narrative: 44 yo male with smoking, uncontrolled hypertension with history of non- compliance to anti-hypertensive therapy, asthma, untreated FLAKITA, BMI 46 who presented to the ED for evaluation of chest pain on 07/29. Pain started the night of 07/28, sharp and localized to the right anterior chest without radation but a/w some tingling in his fingers. At that point he had stopped his omeprazole a few days prior and his pain did resolve after IF famotidine. However the workup in the ED showed a new unruptured aneurysm of the ascending aorta 4.3 x 4.2 cm as per CTA of the thorax abdomen pelvis with a signifant systolic murmur and calcified aortic valve. EKG was not c/w ACS and troponins were not elevated. Given the new aneurysm and elevated as high as 190/108 he was admitted for observation but left AMA before coming upstairs. He returned to the ED with the same pain today. EKG not significantly changed and troponins were not elevated (though over 20 unit decrease from peak 07/29). [facility] cardiothoracic surgery consulted and recommended cardiac monitoring and echocardiogram before discharge. At the time of evaluation he had mild mid chest discomfort. Mild shortness of breath did get a little better after NTG in the ED, resolved when I saw him. He has no dizziness, nausea, lightheadedness, or diaphoresis. No radiation. Review of Systems All systems reviewed & are unremarkable except as noted in HPI and below Respiratory Respiratory: Reports cough (mild), Denies hemoptysis and Denies excessive phlegm production PFSH All Active Problems (Updated 07/30/24 @ 16:56 by Clayton Jaramillo) DVT prophylaxis (Acute) Aortic calcification (Acute) Holosystolic murmur (Acute) On deep vein thrombosis (DVT) prophylaxis (Acute) Aortic aneurysm (Chronic) Chest pain (Acute) Hypertension (Chronic) Thoracic aortic aneurysm (Acute) Nausea and vomiting (Acute) Gout of left ankle (Acute) Medical History Tobacco use Back pain Depression Murmur Sleep apnea GERD (gastroesophageal reflux disease) Hypertension Asthma Social History Smoking/Tobacco Use Status: Current every day Tobacco Type: cigarettes Tobacco: How many years used: 25 Smoking risk assessment performed?: Yes Alcohol Intake: current Alcohol Intake frequency: holidays/special occasions only Drug use: Daily Substance use type: marijuana Housing: other Details: living in [facility] current occupation: N/A What type of physical activity do you participate in: independent ambulation Do you feel safe at home: Yes Do you feel safe in your relationship?: Yes Meds Allergies and Home Medications Allergies Allergy/AdvReac Type Severity Reaction Status Date / Time No Known Allergies Allergy Verified 07/30/24 07:54 Home Medications ?Medication ?Instructions ?Recorded ?Confirmed ?Type spironolactone 50 mg tablet 50 mg PO DAILY 04/23/20 07/30/24 History allopurinol 100 mg tablet 100 mg PO DAILY 06/12/24 07/30/24 History hydrochlorothiazide 12.5 mg tablet 12.5 mg PO DAILY 06/12/24 07/30/24 History metoprolol succinate 50 mg 50 mg PO DAILY 06/12/24 07/30/24 History tablet,extended release 24 hr omeprazole 20 mg capsule,delayed 20 mg PO DAILY 06/12/24 07/30/24 History release valsartan 160 mg tablet 160 mg PO DAILY 06/12/24 07/30/24 History amlodipine 5 mg tablet (Norvasc) 5 mg PO BID #60 tabs 07/29/24 07/30/24 Rx famotidine 20 mg tablet (Pepcid) 20 mg PO BID #60 tabs 07/29/24 07/30/24 Rx lisinopril 5 mg tablet 5 mg PO DAILY 07/29/24 07/30/24 History Exam Narrative Exam Narrative: GEN: Alert and oriented x 4, cooperative, gives linear history. Obese. No acute distress at rest. HEENT: Head atraumatic. Conjunctiva clear, no icterus. PEERL, EOMI. no rhinorrhea. MMM, OP benign. Neck is supple with no masses or lymphadenopathy, trachea midline LUNGS: CTAB with normal effort CV: RRR with 2-3/6 systolic murmur loudest at RUSB to neck. No gallops, or rubs. Carotid pulses 2+ and equal gypsy. No incrased JVD. ABD: active bowel sounds, soft, nontender and nondistended. No masses. EXT: no cyanosis, clubbing, or edema MSK: No joint redness or swelling NEURO: CN 2-12 grossly intact. Normal movement of 4 extremities. Normal speech and coordination. No tremor SKIN: No rashes or open wounds. PSYCH: normal mood and affect, normal thought process Results Imaging Chest x-ray: report reviewed (No acute pulmonary findings on this single AP portable view of the chest.) CT scan - chest: report reviewed (07/29: Ascending aorta is dilated to 4.5 cm. There is calcifications at the aortic valve. No evidence of dissection. No visible pulmonary emboli. No acute abnormality in the abdomen or pelvis. ) EKG: report reviewed and image reviewed (SNR, nl axis, no STEMI, Ts flat inferiorly) Labs 07/30/24 07:55 07/30/24 07:55 Labs: Laboratory Results - last 24 hr 07/30/24 07/30/24 07/30/24 07:55 09:05 10:50 WBC 5.42 RBC 5.59 Hgb 16.7 Hct 49.0 MCV 88 MCH 29.9 MCHC 34.1 RDW 12.7 Plt Count 155 MPV 11.1 H Immature Gran % 0.2 Neutrophils % 61.0 Lymphocytes % 29.5 Monocytes % 5.9 Eosinophils % 2.8 Basophils % 0.6 Nucleated RBC % 0.0 Absolute Neutrophils 3.31 Absolute Lymphocytes 1.60 Absolute Monocytes 0.32 Absolute Eosinophils 0.15 Absolute Basophils 0.03 D-Dimer 419 Sodium 139 Potassium 3.5 Chloride 104 Carbon Dioxide 31.1 Anion Gap 3.9 BUN 19 H Creatinine 1.2 Est GFR (CKD-EPI 2020) 76.95 Glucose 188 H Calcium 9.5 Troponin I 33 29 Cancelled Lipase 26 Last Vital Signs Temp 36.5 C 07/30/24 07:46 Pulse 61 07/30/24 11:50 Resp 14 07/30/24 11:50 BP 184/99 H 07/30/24 11:46 Pulse Ox 97 07/30/24 11:50 Time Spent Time spent with Patient: 55-74 minutes Time was spent: preparing to see the patient(eg.review tests), obtaining and/or reviewing separately otained hiistory, ordering medications,tests, procedures, referring, communicating with other health anesthesiologist and critical care, indepentently interpreting results, counseling the patient and care coordination
[2024-07-30] MEDS: Enoxaparin 40 MG/0.4 ML SYR SC (14:52)
--- NOTE | 2024-07-30 15:03 | W.PC.ACHO ---
Registration Status: Primary Language: Preferred Language: ED Information & Data Chief Complaint Chest Pain 07/30/24 08:02 Chief Complaint Chest Pain 07/30/24 07:46 Triage Note here yesterday for chest 07/30/24 07:46 pain, declined admission and left AMA. Went into [facility] nurses [facility] this AM clenching chest and reporting severe sternal chest pain. Given 325mg ASA by nurse. Given 2 nitro by EMS which helped. Pain is reproducible w/palpation, deep breathing, and bumps in the ambulance. Medical / Surgical History (Last Reviewed 07/30/24 @ 12:31 by Clayton Jaramillo) Tobacco use Back pain Depression Murmur Sleep apnea GERD (gastroesophageal reflux disease) Hypertension Asthma Most Recent Vital Signs Temperature 36.7 C 07/30/24 12:50 Temperature Source Temporal Artery Scan 07/30/24 12:50 Pulse 74 07/30/24 12:50 Pulse Rhythm Regular 07/30/24 12:55 Pulse 65 07/30/24 12:30 Respiratory Rate 16 07/30/24 12:50 Respiratory Effort Normal 07/30/24 12:55 Respiratory Depth Normal 07/30/24 12:55 Respiratory Pattern Normal 07/30/24 12:55 Blood Pressure 166/79 H 07/30/24 12:50 Blood Pressure Mean 108 07/30/24 12:50 Blood Pressure Position Sitting 07/30/24 07:46 Pulse Oximetry 97 07/30/24 12:50 Oxygen Delivery Method Room Air 07/30/24 12:55 Oxygen Flow Rate 0 07/30/24 12:55 Pain Level 0 07/30/24 12:50 Allergies No Known Allergies Allergy (Verified 07/30/24 07:54) Precautions Isolation Standard precaution 07/30/24 08:02 Active Medications Generic Name Dose Route Start Last Admin Trade Name Freq PRN Reason Stop Dose Admin Enoxaparin Sodium 40 mg 07/30/24 14:00 07/30/24 14:52 Enoxaparin 40 Mg/0.4 Ml Syr SC 40 mg Q24H MARYCARMEN Administration IV IV Catheter Type [Left Hand] Saline Lock IV Catheter Type [Right Saline Lock Antecubital] IV Catheter Gauge [Left Hand] 20 IV Catheter Gauge [Right 18 Antecubital] Diet Orders Category Date Time Status Heart Healthy Eating [DIET] Nutrition 07/30/24 Dinner Active Diagnostics 05/07/30/24 07/30/24 Range/Units 10:50 09:05 07:55 WBC 5.42 (4.4-10.8) 10^3/uL RBC 5.59 (4.36-5.78) 10^6/uL Hgb 16.7 (13.5-17.5) g/dL Hct 49.0 (40.0-50.0) % MCV 88 (80-95) fL MCH 29.9 (27.0-33.0) pg MCHC 34.1 (32.0-36.0) % RDW 12.7 (11.8-14.1) % Plt Count 155 (130-400) 10^3/uL MPV 11.1 H (8.0-11.0) fL Immature Gran % 0.2 % Neutrophils % 61.0 % Lymphocytes % 29.5 % Monocytes % 5.9 % Eosinophils % 2.8 % Basophils % 0.6 % Nucleated RBC % 0.0 (0.0-0.3) % Absolute Neutrophils 3.31 (1.2-6.7) 10^3/uL Absolute Lymphocytes 1.60 (1.2-3.4) 10^3/uL Absolute Monocytes 0.32 (0.1-0.8) 10^3/uL Absolute Eosinophils 0.15 (0.0-0.7) 10^3/uL Absolute Basophils 0.03 (0.0-0.2) 10^3/uL D-Dimer 419 (<500) ng/mlFEU Sodium 139 (136-145) mmol/L Potassium 3.5 (3.5-5.1) mmol/L Chloride 104 (98-107) mmol/L Carbon Dioxide 31.1 (21.0-32.0) mmol/L Anion Gap 3.9 (3-11) mmol/L BUN 19 H (7-18) mg/dL Creatinine 1.2 (0.70-1.30) mg/dL Est GFR (CKD-EPI 2020) 76.95 (mL/min/1.73m2) Glucose 188 H (74-106) mg/dL Calcium 9.5 (8.5-10.1) mg/dL Troponin I Cancelled 29 33 (<or=76) ng/L Lipase 26 (<78) U/L Intake and Output - 24 Hour Total 07/30/24 07:37 thru 07/30/24 14:19 Intake Total 30 Balance 30 Weight 140.478 kg Intake: IV 30 Other: Urine Appearance Clear Falls Risk Assessment History of Falls No History 07/30/24 12:55 Contributing Factors No Factors 07/30/24 12:55 Ambulatory Aids Independent 07/30/24 12:55 Tubes/Lines W/no contributing factors 07/30/24 12:55 Gait Evaluation No gait disturbance 07/30/24 12:55 Cognition No cognitive impairment 07/30/24 08:06 Fall Total Score 10 07/30/24 12:55 Level of Risk Standard/Low Risk 07/30/24 12:55 Problems (Last Reviewed 07/30/24 @ 12:31 by Clayton Jaramillo) Aortic calcification (Acute) Holosystolic murmur (Acute) Thoracic aortic aneurysm (Acute) v v v v v v v v v Sending and/or Receiving Nurses: Please use comment section below to note any information pertinent to the patient hand-off not included above. Information / Comments: Pt [facility] from [facility] c/o SOB, and chest pain. Pt was in ED yesterday for same issue but left AMA. Pt has HX of large abdominal aortic aneryism measuring 4.3x4.2 cm with no dissection seen. Pt had some elevated BP in ED and was given meds which helped bring down to more stable level. Last BP taken in ED was reported as 168/93. Pt has a #18 to R ac which flushes well. Pt is a/o x 4 and able to make needs known. Skin is intact. Lung sounds are clear and heart rate is regular. Pt was brought to floor and settled into room by this nurse. Pt has 2 co's in room with him and has ankle shackles applied. Report received from:
[2024-07-30] MEDS: Famotidine 20 MG TAB PO (20:04)
[2024-07-30] MEDS: Valsartan 80 MG TAB 160 MG PO (20:04)
[2024-07-31 07:42] VITALS: BP 160/96; PULSE 62; RESP 18; TEMP 36.3; O2SAT 96
[2024-07-31] MEDS: Spironolactone 50 MG TAB 25 MG PO (08:52)
[2024-07-31] MEDS: Omeprazole 20 MG CAPCR PO (08:52)
[2024-07-31] MEDS: Famotidine 20 MG TAB PO (08:53)
[2024-07-31] MEDS: amLODIPine 5 MG TAB 10 MG PO (08:54)
[2024-07-31] MEDS: Valsartan 80 MG TAB 160 MG PO (08:54)
[2024-07-31] MEDS: Metoprolol CR 50 MG TABCR PO (08:54)
[2024-07-31] MEDS: Enoxaparin 40 MG/0.4 ML SYR SC (12:01)
--- NOTE | 2024-07-31 13:54 | PHA.REVIEW2 ---
Pharmacy Admission Review Admission Clinical Review Admission Pharmacy Review: DVT prophylaxis (Acute) Aortic calcification (Acute) Holosystolic murmur (Acute) Chest pain (Acute) Thoracic aortic aneurysm (Acute) No Known Allergies Allergy (Verified 07/30/24 07:54) Resuscitation Status Full Code Height 5 ft 9 in Weight 137.892 kg Pharmacy Admission Review Renal Dosing Renal Dosing: BUN 19 mg/dL (7-18) H 07/30/24 07:55 Creatinine 1.2 mg/dL (0.70-1.30) 07/30/24 07:55 Medications needing adjustments: Reviewed (CrCl 109.55 mL/min) List of meds needing interventions: Current medications are okay Anticoagulation Anticoagulation: Hgb 16.7 g/dL (13.5-17.5) 07/30/24 07:55 Hct 49.0 % (40.0-50.0) 07/30/24 07:55 Plt Count 155 10^3/uL (130-400) 07/30/24 07:55 Creatinine 1.2 mg/dL (0.70-1.30) 07/30/24 07:55 DVT Prophylaxis: Intervened (changed from q24h to q12h due to BMI > 40) Medications: Enoxaparin (40mg q12h) Relevant Labs Relevant Labs: Sodium 139 mmol/L (136-145) 07/30/24 07:55 Potassium 3.5 mmol/L (3.5-5.1) 07/30/24 07:55 Chloride 104 mmol/L (98-107) 07/30/24 07:55 Electrolytes, C-Reactive P, ESR: Reviewed (No new labs for today) Cardiac Review Cardiac Review: Troponin I Cancelled 07/30/24 10:50 BP, HR, EF%: Reviewed (BP 160/96, HR WNL) List meds needing interventions: Has orders for amlodipine 10mg daily, metoprolol XL 50mg daily, spironolactone 25mg daily and valsartan 80mg daily QTc Review QTc: Reviewed (410 from 07/30/24) IV to PO Switch IV Medications: Reviewed Home Meds Home Med List reviewed: Reviewed Relevent Home Meds Not ordered & why?: allopurinol (listed as not taking on home med list), HCTZ (listed as not taking on home med list), lisinopril (has order for valsartan) Current Meds Current Medication Order Review: Intervened Comments: Changed omeprazole timing from 0830 to 0730 per pharmacy protocol
--- NOTE | 2024-07-31 14:10 | PDOC.CMIN ---
Date of service: 07/31/24 Time of Service: 14:14 Care Management Initial Assmt Initial Assessment Reason for Hospitalization: chest pain Functional Status/Living Situation Patient Presentation: Timothy presented to the ED yesterday morning with c/o chest pain. He had been in the ED on 07/29 for same c/o. Pain resolved after receiving famotidine, and he left AMA. It was noted at that time that he has an unruptured aortic aneurysm. At that time, he also had BP as high as 190/108. He returned yesterday with the same c/o chest pain. [facility] was consulted. They recommended cardiac monitoring and echocardiogram prior to discharge. Echo was done this morning, and the results are still pending. Timothy was lying in the bed watching TV when CM met with him today. Timothy expressed to CM that he feels that his blood pressure has not been addressed, and he is getting very anxious to go. CM did speak to the provider and relayed Timothy's concerns. [facility] Significant Other/Family: Out of area (has an uncle in [place], but has no close contacts. He has listed no one on his HIPAA) Employment Status: Other (incarcerated) Instrumental Activities of Daily Living (ADLs): Independent Advance Directives Advance Directives: Do you have an Advance Directive: N 02/11/13 18:33 AD On File at [facility]: N 02/11/13 18:33 Date Asked 07/30/24 07/30/24 07:57 AD Date Reviewed COLST On File at [facility] COLST Date Scanned Code Status Resuscitation Status Full Code Insurance Coverage/Financial Issues Insurance: [facility]? Care Team Visit Care Team Role Provider Type Clinton Cruz Primary Care Provider NON-[facility] STAFF PHYSICIAN Clayton Pierre MD Emergency Provider [facility] STAFF PHYSICIAN Clayton Jaramillo Admit Provider [facility] STAFF PHYSICIAN Attending Provider Discharge Potential Discharge Needs: PCP F/U Appt and Other (cardiology consult) Anticipated Barriers to Discharge: None Identified Patient/Family Education Needs: Review discharge instructions, discuss Ask Me Three Transportation: Facility Transport Plan: Timothy will be transferred back to the nursing home once medically stable. He will f/u with the facility provider and transport via facility vehicle. CM will coordinate discharge with the RN at the prison. Social Determinants of Health Screening Social Determinants of health last assessed in clinic: 07/30/24 Will the Patient Participate in the Screening?: Unable to obtain Problems where you live: no known problems In the past 12 months, have you had to go without electric, gas, oil or water in your home?: no Has lack of transportation kept you from medical appointments or from doing things needed for daily living?: no Has anyone in your life made you feel unsafe or unsupported?: no How hard is it for you to pay for the very basics like food, housing, medical care, and heating? Would you say it is:: Not hard at all Do you want help finding or keeping work or a job?: I do not need or want help If for any reason you need help with day-to-day activities such as bathing, preparing meals, shopping, managing finances, etc., do you get the help you need?: I don?t need any help How often do you feel lonely or isolated from those around you?: Never Do you speak a language other than Mongolian at home?: No Does the patient want assistance with any of the above?: No PFSH All Active Problems (Updated 07/30/24 @ 16:56 by Clayton Jaramillo) DVT prophylaxis (Acute) Aortic calcification (Acute) Holosystolic murmur (Acute) On deep vein thrombosis (DVT) prophylaxis (Acute) Aortic aneurysm (Chronic) Chest pain (Acute) Hypertension (Chronic) Thoracic aortic aneurysm (Acute) Nausea and vomiting (Acute) Gout of left ankle (Acute) Medical History Tobacco use Back pain Depression Murmur Sleep apnea GERD (gastroesophageal reflux disease) Hypertension Asthma Social History Smoking/Tobacco Use Status: Current every day Tobacco Type: cigarettes Tobacco: How many years used: 25 Smoking risk assessment performed?: Yes Alcohol Intake: current Alcohol Intake frequency: holidays/special occasions only Drug use: Daily Substance use type: marijuana Housing: other Details: living in [facility] current occupation: N/A What type of physical activity do you participate in: independent ambulation Do you feel safe at home: Yes Do you feel safe in your relationship?: Yes Readmission Within the Past 30 Days Yes or No: No
[2024-07-31 15:03] VITALS: BP 178/97; PULSE 62; RESP 16; TEMP 36.8; O2SAT 97
--- NOTE | 2024-07-31 17:08 | W.PM.DS.N ---
Date of service: 07/31/24 Time of Service: 17:08 DS: Diagnosis Discharge Diagnosis (1) Chest pain: Status: Acute (2) Thoracic aortic aneurysm: Status: Acute (3) Aortic calcification: Status: Acute (4) Hypertension: Status: Chronic (5) DVT prophylaxis: Status: Acute (6) Aortic stenosis: Status: Chronic Discharge Plan Disposition Patient Disposition[facility] Condition: Stable Discharge Details Reason For Visit: Chest Pain Admit Date/Time: 07/30/24 12:03 Admit Provider: Clayton Jaramillo Attending Provider: Clayton Jaramillo Primary Care Provider: Clinton Cruz Hospital Course Hospital Course: 44 yo male with smoking, uncontrolled hypertension with history of non-compliance to anti-hypertensive therapy, asthma, untreated FLAKITA, BMI 46 who presented to the ED for evaluation of chest pain on July 29.. He had stopped his omeprazole a few days prior and his pain did resolve after IV famotidine. However the workup in the ED showed a new unruptured aneurysm of the ascending aorta 4.5cm maximal diameter per CTA of the thorax abdomen pelvis with a signifant systolic murmur and calcified aortic valve. EKG was not c/w ACS and troponins were not elevated. Given the new aneurysm and elevated as high as 190/108 he was admitted for observation but left AMA before coming upstairs. He returned to the ED the next day with the same pain today. EKG not significantly changed and troponins were not elevated (though over 20 unit decrease from peak 07/29). [facility] cardiothoracic surgery consulted and recommended cardiac monitoring and echocardiogram before discharge. He did not have recurrence of his chest pain or shortness of breath. Echocardiogram showed moderate to severe aortic stenosis preliminarily. CT surgery was reconsulted after his echocardiogram, cardiology FREDDY Monreal called back to review the case. He agreed with discharge with follow up monitoring. He should have echocardiogram to assess the thoracic aortic aneurym and aortic valve in 6 months. Both the aortic stenosis and the aneurysm may have congenital component so may be higher risk for progression. He should also start a high intensity statin. His pain resolved with famotidine. He had recently stopped his proton pump inhibitor, and likely had rebound GERD symtpoms causing his pain. He should resume famotidine and omeprazole, with a slow taper of this medication as tolerated. Weight loss was also discussed. He has lost weight with diet changes in the past. He wasn't interested in GLP-1 medications. He had not smoked in 2 weeks. He would like to quit tobacco, and plans to continue off of this. He declined medications for this. Regarding his blood pressure, the lisinopril was stopped as he had a cough with this per PCP records. He was given BID valsartan here, but discharged with an Rx for omestartan because this medication is much longer acting and will even out his blood pressure more, and comes in combination with amlodipine for future ease of use. Amlodipine was resumed at 5mg daily. Hydrochlorothiazide was avoided per the patient request. He did tolerate low dose spironolactone, which is a good medication for him given low normal potassium and resistent hypertension. Metoprololol was restarted as well to decrease sheer force on his aortic aneurysm. Outpatient/PCP follow up: Follow up official report of echocardiogram from [facility] blood pressure. With the new long acting medications, his blood pressure should continue to slowly go down over the next 1-2 weeks with current doses. Make sure he gets follow up echocardigram as above in 6 months Follow up on GERD Follow up statin therapy Home Meds and New Rx's Prescriptions: New spironolactone 25 mg Tablet 25 mg PO DAILY Qty: 30 0RF olmesartan 20 mg tablet 20 mg PO DAILY Qty: 30 1RF atorvastatin 40 mg tablet 40 mg PO QHS Qty: 90 3RF Continued famotidine [Pepcid] 20 mg tablet 20 mg PO BID Qty: 60 0RF metoprolol succinate 50 mg tablet extended release 24 hr 50 mg PO DAILY Qty: 30 0RF Patient Comments: TAKE ONE TABLET BY MOUTH EVERY DAY omeprazole 20 mg capsule,delayed release(DR/EC) 20 mg PO DAILY Qty: 30 0RF Patient Comments: has not taken in 4 days 07/29 Changed amlodipine [Norvasc] 5 mg tablet 5 mg PO DAILY Qty: 60 0RF Discontinued allopurinol 100 mg tablet 100 mg PO DAILY Patient Comments: TAKE ONE TABLET BY MOUTH EVERY DAY valsartan 160 mg tablet 160 mg PO DAILY Patient Comments: TAKE ONE TABLET BY MOUTH EVERY DAY hydrochlorothiazide 12.5 mg tablet 12.5 mg PO DAILY Patient Comments: TAKE ONE TABLET BY MOUTH EVERY DAY lisinopril 5 mg tablet 5 mg PO DAILY Patient Comments: Has not taken in 4 days 07/29 spironolactone 50 mg Tablet 50 mg PO DAILY Discharge Instructions Instructions: Aortic Stenosis, Adult (DC), Aortic Aneurysm (DC) Additional Instructions: you have an abnormal heart valve and an aneurysm (a weak spot or buldge) on your aorta. These issues can be life-threatening. To keep these from getting worse, you need to: 1: control your blood pressure 2: stop smoking 3: take the atorvastatin You need another echocardiogram in 6 months Your chest pain may have also been related to stomach acid. You should go back on the medications for this for now, omeprazole and famotidine. Stand Alone Forms: Nursing Discharge Form Activity:: Activity as Tolerated Equipment/Supplies:: No Equipment Needed Diet:: As Tolerated Discharge Orders Discharge Orders: Discharge Order (Routine); Ordered 07/31/24 Ordered By: Clayton Jaramillo DS: Summary Time Spent with Patient providing and/or coordinating discharge services: Greater than 30 minutes Status at Discharge Functional status at discharge: independent ambulation Overall status at discharge: patient is back to baseline Mental Status: mental status grossly normal Speech and Movement: speech and movement normal Mood: congruent mood Affect: normal affect Quality:SDOH Health Related Social Needs: Health related social needs details too large Exam Narrative Exam Narrative: GEN: Alert and oriented. No acute distress at rest. LUNGS: CTAB with normal effort CV: RRR with 2/6 systolic murmur loudest at RUSB to neck. No gallops, or rubs. Carotid pulses 2+ and equal gypsy. No incrased JVD. ABD: active bowel sounds, soft, nontender and nondistended. No masses. EXT: no cyanosis, clubbing, or edema Psych Mental Status: mental status grossly normal Speech and Movement: speech and movement normal Mood: congruent mood Affect: normal affect DS: Data Vitals/I&O Vitals and I&O: Vital Signs Temperature 36.8 C 07/31/24 15:03 Temperature Source Tympanic 07/31/24 15:03 Pulse 62 07/31/24 15:03 Pulse Rhythm Regular 07/30/24 12:55 Pulse 65 07/30/24 12:30 Respiratory Rate 16 07/31/24 15:03 Respiratory Effort Normal 07/30/24 12:55 Respiratory Depth Normal 07/30/24 12:55 Respiratory Pattern Normal 07/30/24 12:55 Blood Pressure 178/97 H 07/31/24 15:03 Blood Pressure Mean 124 07/31/24 15:03 Blood Pressure Position Sitting 07/30/24 07:46 Pulse Oximetry 97 07/31/24 15:03 Oxygen Delivery Method Room Air 07/31/24 15:03 Oxygen Flow Rate 0 07/31/24 15:03 Pain Level 0 07/31/24 15:03 Comment RN aware. 07/31/24 07:42 Intake & Output 07/30/24 07/31/24 07/31/24 23:59 11:59 23:59 Intake Total Balance Weight 137.892 kg Intake: IV Other: Urine Color Yellow Yellow Urine Appearance Clear Clear Urine Odor Normal Normal Comment Patient voids ind. in the toilet. Patient voids ind. in the toilet. pt reports he has voided independently today. PFSH All Active Problems (Updated 07/31/24 @ 17:09 by Clayton Jaramillo) Aortic stenosis (Chronic) DVT prophylaxis (Acute) Aortic calcification (Acute) Holosystolic murmur (Acute) On deep vein thrombosis (DVT) prophylaxis (Acute) Aortic aneurysm (Chronic) Chest pain (Acute) Hypertension (Chronic) Thoracic aortic aneurysm (Acute) Nausea and vomiting (Acute) Gout of left ankle (Acute) Medical History Tobacco use Back pain Depression Murmur Sleep apnea GERD (gastroesophageal reflux disease) Hypertension Asthma Social History Smoking/Tobacco Use Status: Current every day Tobacco Type: cigarettes Tobacco: How many years used: 25 Smoking risk assessment performed?: Yes Alcohol Intake: current Alcohol Intake frequency: holidays/special occasions only Drug use: Daily Substance use type: marijuana Housing: other Details: living in [facility] current occupation: N/A What type of physical activity do you participate in: independent ambulation Do you feel safe at home: Yes Do you feel safe in your relationship?: Yes Time Spent with Patient Time Spent with Patient: 45-69 minutes Time was spent: preparing to see the patient(eg.review tests), obtaining and/or reviewing separately otained hiistory, ordering medications,tests, procedures, referring, communicating with other health client care representative, indepentently interpreting results, counseling the patient and care coordination
== END 2024-07-31 16:57 ==
LOC: ER 11:33 → MS 14:02
PROVIDERS: Admitting Provider Family Medicine; Emergency Provider Emergency Medicine; PCP Physician Assistant; Responsible Provider Family Medicine; Visit Provider Family Medicine
DX: R07.89 Other chest pain (principal); I71.20 Thoracic aortic aneurysm, without rupture, unspecified; R06.02 Shortness of breath; I10 Essential (primary) hypertension; I35.0 Nonrheumatic aortic (valve) stenosis; I70.0 Atherosclerosis of aorta; F17.210 Nicotine dependence, cigarettes, uncomplicated; Z91.148 Patient's other noncompliance with medication regimen for other reason; G47.33 Obstructive sleep apnea (adult) (pediatric); J45.909 Unspecified asthma, uncomplicated; K21.9 Gastro-esophageal reflux disease without esophagitis; F12.90 Cannabis use, unspecified, uncomplicated; Z59.01 Sheltered homelessness
CPT/HCPCS: 00123; 36415; 80048; 83690; 93005; 93308; 96372; 99285; J1650; 71045; 84484; 85025; 85379; 93010; 93306; 99222; 99239; G0378

== ENCOUNTER 2024-08-08 21:11 | Emergency (ER) | payer OTHER, SELFPAY ==
[2024-08-08] VITALS (25 sets, daily range): BP systolic 108–121; BP diastolic 48–76; PULSE 64–92; RESP 0–23; TEMP 36.9; O2SAT 93–98
--- NOTE | 2024-08-08 21:00 | RT.EKG_ITS ---
APPROVED REPORT Exam: Resting ECG Reason for Exam: chest pain Patient Location: E HR:74 bpm ECG Measurements Heart Rate 74 AXIS LA 148 P 15 QRSd 94 QRS 52 QT 380 T 36 QTc 421 Conclusion Sinus rhythm...normal P axis, V-rate 60- 99 No Occlusion [place]
--- NOTE | 2024-08-08 21:11 | W.ED.GENAD ---
Discharge Plan Disposition Patient Disposition: Home Discharge Details Clinical Impression: Chest pain, unspecified Primary Care Provider: Clinton Cruz ED Provider: Clayton Pierre Home Meds and New Rx's Prescriptions: Continued famotidine [Pepcid] 20 mg tablet 20 mg PO BID Qty: 60 0RF spironolactone 25 mg Tablet 25 mg PO DAILY Qty: 30 0RF olmesartan 20 mg tablet 20 mg PO DAILY Qty: 30 1RF metoprolol succinate 50 mg tablet extended release 24 hr 50 mg PO DAILY Qty: 30 0RF Patient Comments: TAKE ONE TABLET BY MOUTH EVERY DAY amlodipine [Norvasc] 5 mg tablet 5 mg PO DAILY Qty: 60 0RF omeprazole 20 mg capsule,delayed release(DR/EC) 20 mg PO DAILY Qty: 30 0RF Patient Comments: has not taken in 4 days 07/29 atorvastatin 40 mg tablet 40 mg PO QHS Qty: 90 3RF Discharge Instructions Additional Instructions: He was seen in the emergency department for your chest pain. Your blood work showed no sign of heart attack. Your x-ray showed no sign pneumonia. Please return to the emergency department if you pass out, if you develop chest pain that travels to your back or is associated with sweating. Otherwise please continue taking your home medications as previously scheduled. HPI General Date/Time Provider Initiated Documentation: 08/08/24 21:20. HPI Narrative: MDM This is an overall very well-appearing normothermic and not tachycardic 44-year-old male with left-sided atypical chest pain for which he will undergo ECG and troponin testing to assess for ACS. Patient has not been vomiting to suggest increased risk for esophageal rupture. He has equal breath sounds and no trauma so my suspicion is low for pneumothorax. He is not hypotensive nor dialysis patient making my suspicion low for cardiac tamponade. No rash to chest to suggest zoster. No fevers nor cough to suggest pneumonia. No tearing quality to suggest aortic dissection. Patient does have a history of moderate aortic stenosis but did not have a syncopal episode so does not concern for critical aortic stenosis. He is not short of breath and has no lower extremity edema to suggest acute heart failure. No preceding URI symptoms to suggest pericarditis and no positional component. I considered PE however patient is not having pleuritic chest pain and is PERC negative so I did not send a D-dimer. No nausea vomiting or right upper quadrant pain so I did not feel that the patient's presentation represented acute cholecystitis. HEART SCORE Chest pain Diagnostic Protocol: [-History/Physical/Gestalt: Slightly Suspicious (0)] [-EKG: Normal and/or unchanged from prior EKG (0)] [-AGE: less than 45 (0)] [- RISK FACTORS: 3 or more risk factors and/or known CAD (+2)] [-TROPONIN: <= normal limit (0)] - TOTAL SCORE: 2 - Risk Factors: DM, current or recent smoker, HTN, HLD, family hx of CAD, obesity - INTERPRETATION: With a total score of 3 or less, risk of major cardiac event within six weeks 1.7%, likely lower with two negative troponins. [I explained to the patient that the risk of subsequent major cardiac event within 1 month is not 0, however risk predicted to be less than 2%. Patient verbalized understanding, accepts this risk and shared and the decision for discharge with PCP follow-up for further evaluation and management. They understand to return to the ED immediately with any worsening symptoms, new symptoms or other concerns.] HPI The patient presents to the emergency department for chest pain. Patient is in correctional custody. He reports experiencing chest pain localized over his left breast, which he rates as 5 on a scale of 10. This is the third episode of such pain within a span of 2 weeks. He has a known history of an aortic aneurysm and is currently in sinus rhythm as per the monitor. He has not experienced any syncope or head trauma. He also reports no fevers, cough, vomiting, or presence of a rash on the chest. He has taken 4 aspirin and 2 nitroglycerin tablets, which have effectively reduced his pain level to 1.5. This pain was not associated with sweating. Denies exacerbators and alleviators. No radiation of pain. No recent URI symptoms. No positional component. No pleuritic component. No prior history of PEs nor DVT. Exam General: Well-appearing in no acute distress speaking in complete sentences. Head: Normocephalic, atraumatic. Eye: Extraocular eye movements intact. No conjunctival injection. No scleral icterus. Ear, nose, mouth, throat: Grossly normal inspection. Normal voice, handling secretions normally. Neck: Trachea midline. Cardiovascular: Well-perfused distal extremities. Regular rate and rhythm Respiratory: Nonlabored respiration. Clear lungs bilaterally. Gastrointestinal: Nondistended abdomen. Soft nontender. Musculoskeletal: No no significant lower extremity pitting edema. Moving all 4 extremities spontaneously. No calf tenderness bilaterally. Negative Homans' sign. Skin: Normal for age and race, grossly normal temperature and turgor. No acute rash. Neurologic: Alert and appropriate, no apparent acute deficits. Psychiatric: Mood and manner are appropriate. Grooming and personal hygiene are appropriate. Related Data Home Medications ?Medication ?Instructions ?Recorded ?Confirmed famotidine 20 mg tablet (Pepcid) 20 mg PO BID #60 tabs 07/29/24 08/08/24 amlodipine 5 mg tablet (Norvasc) 5 mg PO DAILY #60 tabs 07/31/24 08/08/24 atorvastatin 40 mg tablet 40 mg PO QHS #90 tabs 07/31/24 08/08/24 metoprolol succinate 50 mg 50 mg PO DAILY #30 tabs 07/31/24 08/08/24 tablet,extended release 24 hr olmesartan 20 mg tablet 20 mg PO DAILY #30 tabs 07/31/24 08/08/24 omeprazole 20 mg capsule,delayed 20 mg PO DAILY #30 caps 07/31/24 08/08/24 release spironolactone 25 mg tablet 25 mg PO DAILY #30 tabs 07/31/24 08/08/24 Previous Rx's ?Medication ?Instructions ?Recorded famotidine 20 mg tablet (Pepcid) 20 mg PO BID #60 tabs 07/29/24 amlodipine 5 mg tablet (Norvasc) 5 mg PO DAILY #60 tabs 07/31/24 atorvastatin 40 mg tablet 40 mg PO QHS #90 tabs 07/31/24 metoprolol succinate 50 mg 50 mg PO DAILY #30 tabs 07/31/24 tablet,extended release 24 hr olmesartan 20 mg tablet 20 mg PO DAILY #30 tabs 07/31/24 omeprazole 20 mg capsule,delayed 20 mg PO DAILY #30 caps 07/31/24 release spironolactone 25 mg tablet 25 mg PO DAILY #30 tabs 07/31/24 Allergies Allergy/AdvReac Type Severity Reaction Status Date / Time No Known Allergies Allergy Verified 08/08/24 21:13 General KARL: 3 Medical Decision Making Quality:SDOH Health Related Social Needs: Health related social needs details too large PFSH All Active Problems (Updated 08/08/24 @ 23:23 by Clayton Pierre MD) Chest pain, unspecified (Acute) Aortic stenosis (Chronic) Aortic calcification (Acute) On deep vein thrombosis (DVT) prophylaxis (Acute) Aortic aneurysm (Chronic) Hypertension (Chronic) Thoracic aortic aneurysm (Acute) Nausea and vomiting (Acute) Gout of left ankle (Acute) Medical History Tobacco use Back pain Depression Murmur Sleep apnea GERD (gastroesophageal reflux disease) Hypertension Asthma Social History Smoking/Tobacco Use Status: Current every day Tobacco Type: cigarettes Tobacco: How many years used: 25 Smoking risk assessment performed?: Yes Alcohol Intake: current Alcohol Intake frequency: holidays/special occasions only Drug use: Daily Substance use type: marijuana Housing: other Details: living in [facility] current occupation: N/A What type of physical activity do you participate in: independent ambulation Do you feel safe at home: Yes Do you feel safe in your relationship?: Yes
[2024-08-08 21:31] LABS: Abs Immature Grans 0.02 10^3/uL (0.0-0.06); Absolute Basophil Count 0.03 10^3/uL (0.0-0.2); Absolute Eosinophil Count 0.13 10^3/uL (0.0-0.7); Absolute Lymphocyte Count 2.89 10^3/uL (1.2-3.4); Absolute Monocyte Count 0.91 10^3/uL (0.1-0.8); Absolute Neutrophil Count 5.26 10^3/uL (1.2-6.7); Basophils % 0.3 %; Eosinophils % 1.4 %; HCT 46.7 % (40.0-50.0); HGB 16.5 g/dL (13.5-17.5); Immature Grans % 0.2 %; Lymphocytes % 31.3 %; MCH 30.3 pg (27.0-33.0); MCHC 35.3 % (32.0-36.0); MCV 86 fL (80-95); MPV 11.4 fL (8.0-11.0); Monocytes % 9.8 %; Platelet Count 180 10^3/uL (130-400); RBC 5.45 10^6/uL (4.36-5.78); RDW 12.4 % (11.8-14.1); RDW-SD 38.6 fL; WBC 9.24 10^3/uL (4.4-10.8)
[2024-08-08 21:47] LABS: Anion Gap 9.9 mmol/L (3-11); BUN 16 mg/dL (7-18); CO2 26.1 mmol/L (21.0-32.0); Calcium 9.6 mg/dL (8.5-10.1); Chloride 103 mmol/L (98-107); Estimated GFR 95.77 (mL/min/1.73m2); Glucose 100 mg/dL (74-106); Potassium 4.1 mmol/L (3.5-5.1); Sodium 139 mmol/L (136-145); Troponin I 21 ng/L (<or=76)
--- NOTE | 2024-08-08 21:49 | DI.RAD_ITS ---
Exam(s) XR PORTABLE CHEST AP EXAM: XR PORTABLE CHEST AP CLINICAL HISTORY: Chest pain. TECHNIQUE: 2D digital imaging was performed. COMPARISON: CR XR PORTABLE CHEST AP from 07/30/2024 FINDINGS: Single AP portable view. Heart size is upper normal. The mediastinum is not widened. Lungs are clear. No infiltrates nor obvious pleural effusions. IMPRESSION: No acute pulmonary findings on this single AP portable view of the chest. DATA REPOSITORY: RADIATION DOSE DELIVERED:
--- NOTE | 2024-08-08 22:14 | DI.VRAD_ITS ---
PROCEDURE INFORMATION: Exam: XR Chest Exam date and time: 08/08/2024 9:48 PM Age: 44 years old Clinical indication: Chest pressure; Chest pain TECHNIQUE: Imaging protocol: Radiologic exam of the chest. Views: 1 view. COMPARISON: CR XR PORTABLE CHEST AP 07/30/2024 8:18 AM FINDINGS: Lungs: The lungs are clear. No consolidative radiopacities. Pleural spaces: No pleural effusion. No pneumothorax. Heart/Mediastinum: The cardiac silhouette is mildly enlarged, as before. Bones/joints: Unremarkable. IMPRESSION: No acute cardiopulmonary findings. Dictated and Authenticated by: Madison Marie MD. Orderin Ignacio Arnold MD
[2024-08-08 22:50] LABS: Troponin I 21 ng/L (<or=76)
== END 2024-08-09 00:29 | disposition home or self-care (01) ==
PROVIDERS: Emergency Provider Emergency Medicine; PCP Physician Assistant
DX: R07.9 Chest pain, unspecified (principal)
CPT/HCPCS: 99283; 99285; 36415; 80048; 93005; 71045; 84484; 85025; 93010